=== PATIENT | female | born 1970 | race Caucasian/White ===

== ENCOUNTER 2020-03-10 14:52 | Outpatient (CLI) | payer MEDICARE, MEDICAID, SELFPAY ==
[2020-03-10 16:13] LABS: Basophils Percent Auto 0.7 % (0.2-1.2); Eosinophils Absolute Auto 0.1 K/mm3 (0-0.3); Eosinophils Percent Auto 1.1 % (0-4.4); Hematocrit 41.2 % (37.0-47.0); Hemoglobin 14.4 g/dL (12.0-15.0); Immature Granulocyte Absolute 0.02 K/mm3 (0.00-0.031); Immature Granulocyte Percent A 0.4 % (0-0.5); Lymphocytes Absolute Auto 1.59 K/mm3 (0.9-3.2); Lymphocytes Percent Auto 28.8 % (18.3-44.2); Mean Corpuscular Hemoglobin 31.9 pg (26-34); Mean Corpuscular Volume 91.4 fl (80-100); Mean Platelet Volume 10.3 fl (7.4-10.4); Monocytes Absolute Auto 0.4 K/mm3 (0.1-0.6); Monocytes Percent Auto 6.3 % (2.6-8.5); Neutrophils Absolute Auto 3.5 K/mm3 (1.3-6.7); Neutrophils Percent Auto 62.7 % (45.5-73.1); Platelet Count Result 260 k/mm3 (150-375); Red Blood Count 4.51 M/mm3 (4.2-5.4); Red Cell Distribution Width 13.5 % (11.5-14.5); White Blood Count 5.5 K/mm3 (4.5-10.0)
[2020-03-10 16:35] LABS: Alanine Aminotransferase 17 U/L (4-35); Albumin Level 4.4 g/dL (3.5-5.1); Alkaline Phosphatase 98 U/L (38-126); Aspartate Amino Transferase 28 U/L (14-36); Bilirubin,Total 0.7 mg/dL (0.2-1.3); Blood Urea Nitrogen 10 mg/dL (7-17); Calcium 9.3 mg/dL (8.4-10.2); Carbon Dioxide 31 mmol/L (22-30); Chloride 94 mmol/L (98-107); Cholesterol 157 mg/dL (0-200); Estimated Glomerular Filt Rate > 60; Glucose 85 mg/dL (65-105); HDL Direct 70 mg/dL; Sodium 134 mmol/L (137-145); Triglycerides 97 mg/dL (<150)
[2020-03-10 16:37] LABS: LDL Cholesterol Direct 68 mg/dL
[2020-03-10 17:19] LABS: Thyroid Stimulating Hormone Reflex 0.514 uIU/mL (0.465-4.68)
[2020-03-11 13:04] LABS: Potassium 2.8 mmol/L (3.4-5.0)
== END 2020-03-10 14:53 | disposition home or self-care (01) ==
DX: I10 Essential (primary) hypertension (principal); M19.90 Unspecified osteoarthritis, unspecified site
CPT/HCPCS: 36415; 80053; 80061; 84443; 85025

== ENCOUNTER 2020-03-11 15:20 | Outpatient (CLI) | payer MEDICARE, MEDICAID, SELFPAY ==
--- NOTE | ~2020-03-11 | XR_ITS ---
EXAMINATION: XR knee LT 3V DATE: 03/11/2020 16:04 INDICATION: Left knee osteoarthritis and pain. TECHNIQUE: Weight bearing anteroposterior, sunrise, and flexed lateral views of the left knee were ob tained COMPARISON: None. FINDINGS: Alignment is normal. No fracture. Joint spaces are normal. No joint effusion/layering lipohemarthros is. Soft tissues are unremarkable. IMPRESSION: 1. Normal left knee radiographs. Reviewed, dictated and finalized at location A.
--- NOTE | ~2020-03-11 | XR_ITS ---
EXAMINATION: XR lumbar spine 2-3V DATE: 03/11/2020 16:03 INDICATION: Right-sided back pain radiating into the legs TECHNIQUE: Anteroposterior and lateral views of the lumbar spine, and cone-down lateral view of the l umbosacral junction were obtained. COMPARISON: None. FINDINGS: Alignment is normal. Vertebral body and disc heights are normal. Likely mild lower lumbar facet osteo arthritis. No significant neural foraminal narrowing appreciated. Atherosclerotic calcification is al joan the abdominal aorta and iliac arteries. Anastomotic suture line in the right upper abdomen. Brigitte l bowel gas pattern. IMPRESSION: 1. Mild lower lumbar facet osteoarthritis. Reviewed, dictated and finalized at location A.
== END 2020-03-11 15:21 | disposition home or self-care (01) ==
LOC: ANHIMG 15:25
DX: M17.12 Unilateral primary osteoarthritis, left knee (principal); M47.816 Spondylosis without myelopathy or radiculopathy, lumbar region
CPT/HCPCS: 72100; 73562

== ENCOUNTER 2020-03-23 12:31 | Outpatient (CLI) | payer MEDICARE, MEDICAID, SELFPAY ==
[2020-03-23 13:47] LABS: Alanine Aminotransferase 18 U/L (4-35); Albumin Level 4.4 g/dL (3.5-5.1); Alkaline Phosphatase 93 U/L (38-126); Aspartate Amino Transferase 28 U/L (14-36); Bilirubin,Total 0.6 mg/dL (0.2-1.3); Blood Urea Nitrogen 9 mg/dL (7-17); Calcium 9.3 mg/dL (8.4-10.2); Carbon Dioxide 32 mmol/L (22-30); Chloride 96 mmol/L (98-107); Estimated Glomerular Filt Rate > 60; Glucose 77 mg/dL (65-105); Potassium 3.9 mmol/L (3.4-5.0); Sodium 136 mmol/L (137-145)
== END 2020-03-23 12:32 | disposition home or self-care (01) ==
PROVIDERS: PCP Family Medicine; Visit Provider Family Medicine
DX: I10 Essential (primary) hypertension (principal)
CPT/HCPCS: 36415; 80053

== ENCOUNTER 2020-04-04 15:39 | Outpatient (CLI) | payer MEDICARE, MEDICAID, SELFPAY ==
[2020-04-04 16:32] LABS: Alanine Aminotransferase 18 U/L (4-35); Albumin Level 4.6 g/dL (3.5-5.1); Alkaline Phosphatase 87 U/L (38-126); Aspartate Amino Transferase 28 U/L (14-36); Bilirubin,Total 0.7 mg/dL (0.2-1.3); Blood Urea Nitrogen 8 mg/dL (7-17); Calcium 9.5 mg/dL (8.4-10.2); Carbon Dioxide 27 mmol/L (22-30); Chloride 97 mmol/L (98-107); Estimated Glomerular Filt Rate 58; Glucose 100 mg/dL (65-105); Sodium 135 mmol/L (137-145)
== END 2020-04-04 15:40 | disposition home or self-care (01) ==
LOC: ANHLAB 15:43
PROVIDERS: PCP Family Medicine; Visit Provider Family Medicine
DX: E87.6 Hypokalemia (principal)
CPT/HCPCS: 36415; 80053

== ENCOUNTER 2020-08-30 14:33 | Outpatient (CLI) | payer MEDICARE, MEDICAID, SELFPAY ==
[2020-08-30 15:51] LABS: Alanine Aminotransferase 18 U/L (4-35); Albumin Level 4.2 g/dL (3.5-5.1); Alkaline Phosphatase 91 U/L (38-126); Anion Gap 9 mmol/L (8-16); Aspartate Amino Transferase 29 U/L (14-36); Bilirubin,Total 0.8 mg/dL (0.2-1.3); Blood Urea Nitrogen 11 mg/dL (7-17); CRP 0.5 mg/dL (<1.0); Calcium 9.3 mg/dL (8.4-10.2); Carbon Dioxide 28 mmol/L (22-30); Chloride 96 mmol/L (98-107); Estimated Glomerular Filt Rate > 60; Glucose 104 mg/dL (65-105); Potassium 2.9 mmol/L (3.4-5.0); Sodium 133 mmol/L (137-145)
[2020-08-30 16:27] LABS: Vitamin D 25 Hydroxy 28.4 ng/mL
== END 2020-08-30 14:34 | disposition home or self-care (01) ==
PROVIDERS: PCP Family Medicine
DX: Z51.81 Encounter for therapeutic drug level monitoring (principal); Z79.899 Other long term (current) drug therapy; K50.919 Crohn's disease, unspecified, with unspecified complications; K90.9 Intestinal malabsorption, unspecified; E53.8 Deficiency of other specified B group vitamins; I10 Essential (primary) hypertension
CPT/HCPCS: 36415; 80053; 80076; 82248; 82306; 82607; 85025; 85652; 86140

== ENCOUNTER 2020-12-14 12:20 | Outpatient (CLI) | payer MEDICARE, MEDICAID, SELFPAY ==
--- NOTE | ~2020-12-14 | XR_ITS ---
XR chest 2V 12/14/2020 12:44 Indication: Pleuritic chest pain Procedure: 2 view chest Comparison: 04/03/2018 Findings: Heart size normal. Chronic left basilar atelectasis/scarring. No focal air space disease, p ulmonary edema, pleural effusion or suspected pneumothorax. There are changes of anterior cervical fu huy lower cervical spine. Impression: 1: No acute cardiopulmonary disease. Reviewed, dictated and finalized at location A. Impression: 1: No acute cardiopulmonary disease.
== END 2020-12-14 12:21 | disposition home or self-care (01) ==
PROVIDERS: PCP Family Medicine; Visit Provider Family Medicine
DX: R07.81 Pleurodynia (principal)
CPT/HCPCS: 71046

== ENCOUNTER 2021-04-21 16:54 | Emergency (ER) | payer MEDICARE, MEDICAID, SELFPAY ==
[2021-04-21 17:10] VITALS: BP 116/78; PULSE 82; RESP 16; TEMP 36.9; O2SAT 99
--- NOTE | 2021-04-21 17:29 | ED.URI ---
HPI - URI/Sore Throat General Chief Complaint: Upper Respiratory Infection Stated Complaint: Loss of appetite and nausea Time Seen by Provider: 04/21/21 17:29 Source: patient and RN notes reviewed Mode of arrival: ambulatory Limitations: no limitations History of Present Illness HPI Narrative: 51-year-old female with history of Crohn's disease presents with concern for exposure to Covid, loss of appetite, nausea. Reports she was on vacation late last week and began having symptoms approximately 8 days ago. Reports several people in her household and who were on the trip with her tested positive for Covid. She was not vaccinated. She denies cough, shortness of breath, upper respiratory symptoms MD elicited complaint: other (Nausea) Related Data Home Medications Medication Instructions Recorded Confirmed azathioprine 04/21/21 budesonide PO 04/21/21 metoprolol succinate PO 04/21/21 montelukast mg 04/21/21 potassium chloride [Klor-Con M20] meq PO 04/21/21 Allergies Allergy/AdvReac Type Severity Reaction Status Date / Time sulfamethoxazole Allergy Severe THROAT Verified 04/21/21 17:42 SWELLING trimethoprim Allergy Severe THROAT Verified 04/21/21 17:42 SWELLING amoxicillin Allergy Intermediate SWELLING/RA Verified 04/21/21 17:42 SH cefadroxil Allergy Intermediate Rash Verified 04/21/21 17:42 latex Allergy Intermediate Other Verified 04/21/21 17:42 levofloxacin Allergy Intermediate FACIAL Verified 04/21/21 17:42 SWELLING lidocaine Allergy Intermediate THROAT Verified 04/21/21 17:42 SWELLING rifampin Allergy Intermediate Rash Verified 04/21/21 17:42 clarithromycin Allergy Mild SWELLING Verified 04/21/21 17:42 erythromycin base Allergy Mild SWELLING Verified 04/21/21 17:42 morphine Allergy Mild NAUSEA AND Verified 04/21/21 17:42 VOMITING ofloxacin Allergy Mild RASH Verified 04/21/21 17:42 Penicillins Allergy Mild SWELLING Verified 04/21/21 17:42 adhesive Allergy Unknown Unknown Verified 04/21/21 17:42 POTASSIUM CLAVULANATE Allergy Intermediate SWELLING/RA Uncoded 07/20/19 18:40 SH dermabond Allergy Mild Rash Uncoded 07/10/17 16:44 Review of Systems Review of Systems: CONSTITUTIONAL: Denies malaise, chills, sweats, or fever. EYES: Denies visual changes, redness, or discharge. ENT: Denies rhinorrhea, congestion, sinus pain, otalgia and sore throat. CARDIOVASCULAR: Denies chest pain, palpitations, or edema. RESPIRATORY: Denies cough or dyspnea. GASTROINTESTINAL: Denies abdominal pain, vomiting, diarrhea. Reports nausea and loss of appetite SKIN: Denies rash or itching. MUSCULOSKELETAL: Denies myalgia. NEUROLOGIC: Denies headache. All systems reviewed & are unremarkable except as noted in HPI and below PMFSH Comments At time of signature, agree with nursing past medical, surgical, social and family history. There is no relevant family history pertinent to the presenting complaint Exam Narrative: GENERAL: Well-appearing, well-nourished, and in no acute distress. HEAD: Normocephalic EYES: PERRLA, conjunctivae clear ENT: Mucous membranes moist. no trismus, uvula midline. NECK: Supple. No lymphadenopathy CHEST: Clear to auscultation, breath sounds equal. No wheezing, rhonchi, rales, or stridor. No respiratory distress, speaks in full sentences. HEART: Regular rate and rhythm. No murmur heard. SKIN: Warm, dry, no rash. NEURO: Alert and oriented x3. PSYCH: Normal mood and affect Course Course Emergency Course: Patient is aware of diagnosis, understands and agrees to treatment plan. Anticipatory guidance given. Patient agrees to follow-up as directed and is aware of reasons to seek care at the emergency department. Portions of this record may have been created with voice recognition software Vital Signs Vital signs: Vital Signs Temperature 98.4 F 04/21/21 17:10 Pulse Rate 82 04/21/21 17:10 Respiratory Rate 16 04/21/21 17:10 Blood Pressure 116/78 04/21/21 17:10 Pulse Oxim
[2021-04-22 18:27] LABS: SARS-CoV-2 RNA PCR Positive
== END 2021-04-21 17:49 | disposition home or self-care (01) ==
PROVIDERS: Emergency Provider Nurse Practitioner; PCP Family Medicine
DX: U07.1 COVID-19 (principal); K50.90 Crohn's disease, unspecified, without complications
CPT/HCPCS: 87426; 99213; C9803; G0463; U0003; U0005

== ENCOUNTER 2021-10-17 08:53 | Outpatient (CLI) | payer OTHER, SELFPAY ==
[2021-10-17 09:49] LABS: Basophils Absolute Auto 0.1 K/mm3 (0.0-0.1); Eosinophils Absolute Auto 0.1 K/mm3 (0-0.3); Eosinophils Percent Auto 1.2 % (0-4.4); Hematocrit 41.4 % (37.0-47.0); Hemoglobin 14.5 g/dL (12.0-15.0); Immature Granulocyte Absolute 0.02 K/mm3 (0.00-0.031); Immature Granulocyte Percent A 0.4 % (0-0.5); Lymphocytes Absolute Auto 1.49 K/mm3 (0.9-3.2); Lymphocytes Percent Auto 28.9 % (18.3-44.2); Mean Corpuscular Hemoglobin 32.3 pg (26-34); Mean Corpuscular Volume 92.2 fl (80-100); Mean Platelet Volume 9.8 fl (7.4-10.4); Monocytes Absolute Auto 0.3 K/mm3 (0.1-0.6); Monocytes Percent Auto 6.4 % (2.6-8.5); Neutrophils Absolute Auto 3.2 K/mm3 (1.3-6.7); Neutrophils Percent Auto 62.1 % (45.5-73.1); Platelet Count Result 265 k/mm3 (150-375); Red Blood Count 4.49 M/mm3 (4.2-5.4); Red Cell Distribution Width 13.3 % (11.5-14.5); White Blood Count 5.2 K/mm3 (4.5-10.0)
[2021-10-17 09:59] LABS: Alanine Aminotransferase 22 U/L (4-35); Albumin Level 4.5 g/dL (3.5-5.1); Alkaline Phosphatase 97 U/L (38-126); Anion Gap 12 mmol/L (8-16); Aspartate Amino Transferase 27 U/L (14-36); Bilirubin,Total 0.6 mg/dL (0.2-1.3); Blood Urea Nitrogen 12 mg/dL (7-17); Calcium 9.6 mg/dL (8.4-10.2); Carbon Dioxide 30 mmol/L (22-30); Chloride 95 mmol/L (98-107); Cholesterol 137 mg/dL (0-200); Estimated Glomerular Filt Rate 52; Glucose 92 mg/dL (65-110); HDL Direct 56 mg/dL; Sodium 137 mmol/L (137-145); Triglycerides 82 mg/dL (<150)
[2021-10-17 10:10] LABS: LDL Cholesterol Direct 50 mg/dL
[2021-10-17 11:55] LABS: Thyroid Stimulating Hormone Reflex 0.654 uIU/mL (0.465-4.68)
== END 2021-10-17 08:54 | disposition home or self-care (01) ==
PROVIDERS: PCP Family Medicine; Visit Provider Family Medicine
DX: I10 Essential (primary) hypertension (principal)
CPT/HCPCS: 36415; 80053; 80061; 84443; 85025

== ENCOUNTER 2021-12-04 09:40 | Outpatient (CLI) | payer OTHER, SELFPAY ==
[2021-12-04 10:11] LABS: Alanine Aminotransferase 25 U/L (4-35); Albumin Level 4.5 g/dL (3.5-5.1); Alkaline Phosphatase 94 U/L (38-126); Anion Gap 7 mmol/L (8-16); Aspartate Amino Transferase 32 U/L (14-36); Bilirubin,Total 0.6 mg/dL (0.2-1.3); Blood Urea Nitrogen 9 mg/dL (7-17); Calcium 9.3 mg/dL (8.4-10.2); Carbon Dioxide 31 mmol/L (22-30); Chloride 100 mmol/L (98-107); Estimated Glomerular Filt Rate 52; Glucose 79 mg/dL (65-110); Potassium 3.5 mmol/L (3.4-5.0); Sodium 138 mmol/L (137-145)
== END 2021-12-04 09:41 | disposition home or self-care (01) ==
LOC: ANHLAB 09:44
PROVIDERS: PCP Family Medicine; Visit Provider Family Medicine
DX: E87.6 Hypokalemia (principal)
CPT/HCPCS: 36415; 80053

== ENCOUNTER 2022-04-02 16:54 | Outpatient (CLI) | payer MEDICARE, MEDICAID, SELFPAY ==
--- NOTE | ~2022-04-02 | XR_ITS ---
XR lumbar spine 2-3V DATE: 04/02/2022 17:32 INDICATION: Fall 2 days ago. Low back pain radiating upward TECHNIQUE: AP, lateral, coned lateral lumbosacral views COMPARISON: 03/11/2020 lumbar spine FINDINGS: Normal alignment of the lumbar spine. No fracture or bone destruction. The included lower t horacic and lumbar pedicles are intact. Lumbar and lumbosacral interspaces are well preserved. Minima l degenerative spurring. Degenerative changes noted at the lower lumbar facet joints. The sacroiliac joints are intact. Abdominal aortic and common iliac arterial calcifications without evidence of aneurysm. IMPRESSION: Minimal degenerative change of the lumbar spine Reviewed, dictated and finalized at location A.
== END 2022-04-02 16:55 | disposition home or self-care (01) ==
LOC: ANHIMG 17:03
PROVIDERS: PCP Family Medicine; Visit Provider Family Medicine
DX: M54.50 Low back pain, unspecified (principal)
CPT/HCPCS: 72100

== ENCOUNTER 2022-04-26 14:00 | Outpatient (CLI) | payer MEDICARE, MEDICAID, SELFPAY ==
--- NOTE | ~2022-04-26 | XR_ITS ---
XR thoracic spine 3V DATE: 04/26/2022 14:21 INDICATION: Thoracic back pain following a fall TECHNIQUE: AP, lateral, swimmer views COMPARISON: None FINDINGS: Status post anterior cervical spine fusion at C5-6. There is degenerative disc disease at C 6-7. Normal alignment of the thoracic spine. The thoracic pedicles are intact. No thoracic spine fracture, dislocation or bone destruction or paraspinal soft tissue thickening is detected. IMPRESSION: Status post anterior cervical spine surgical fusion at C5-C6 Degenerative disc disease at C6-7 No fracture, dislocation or bone destruction of the thoracic spine is detected Reviewed, dictated and finalized at location B.
== END 2022-04-26 14:01 | disposition home or self-care (01) ==
PROVIDERS: PCP Family Medicine; Visit Provider Family Medicine
DX: Z98.1 Arthrodesis status (principal); M47.812 Spondylosis without myelopathy or radiculopathy, cervical region
CPT/HCPCS: 72072

== ENCOUNTER 2022-05-25 09:35 | Outpatient (CLI) | payer MEDICARE, MEDICAID, SELFPAY ==
[2022-05-25 11:58] LABS: Hepatitis C Virus Antibody Negative (Negative)
[2022-05-25 13:21] LABS: Alanine Aminotransferase 30 U/L (6-35); Albumin Level 4.4 g/dL (3.5-5.1); Alkaline Phosphatase 92 U/L (38-126); Aspartate Amino Transferase 44 U/L (14-36); Bilirubin,Total 0.6 mg/dL (0.2-1.3)
[2022-05-29 13:33] LABS: NIL 0.04 IU/mL; Quantiferon TB Plus, 1T NEGATIVE (NEGATIVE)
== END 2022-05-25 09:36 | disposition home or self-care (01) ==
LOC: ANHLAB 09:42
PROVIDERS: PCP Family Medicine
DX: K50.00 Crohn's disease of small intestine without complications (principal)
CPT/HCPCS: 36415; 80076; 82607; 86480; 86803

== ENCOUNTER 2022-06-12 13:10 | Emergency (ER) | payer MEDICARE, MEDICAID, SELFPAY ==
--- NOTE | ~2022-06-12 | XR_ITS ---
EXAMINATION: XR chest 2V Exam Date/Time: 06/12/2022 13:54 CDT HISTORY: COUGH X 1 DAY. POSTERIOR CHEST PAIN. Comparison: 12/14/2020. RESULT: Lines, tubes, and devices: Partially visualized cervical fusion hardware. Lungs and pleura: Clear. Linear superior left lower lobe and left basilar scarring, stable. Cardiomediastinal silhouette: Stable. Other: No acute osseous or upper abdominal finding. IMPRESSION: No acute cardiopulmonary process. Reviewed, dictated and finalized at location K.
[2022-06-12 13:16] VITALS: BP 145/82; PULSE 68; RESP 20; TEMP 36.9; O2SAT 100
--- NOTE | 2022-06-12 13:43 | ED.URI ---
HPI - URI/Sore Throat General Chief Complaint: Upper Respiratory Infection Stated Complaint: Congestion/Ear Pain/Sore Throat Time Seen by Provider: 06/12/22 13:43 Source: patient Mode of arrival: ambulatory Limitations: no limitations History of Present Illness HPI Narrative: 52 y/o female presented for c/o nasal congestion, bilateral ear pain for about one week and today she started coughing green sputum this morning. Endorses left side/back pain with deep breath and and pain under left arm when touched. Denies increased shortness of breath, wheezing, nausea, vomiting, diarrhea, fever or chills. Hx COPD using nebs and inhalers as directed Related Data Home Medications Medication Instructions Recorded Confirmed azathioprine 50 mg tablet 04/21/21 budesonide 3 mg PO 04/21/21 capsule,delayed,extended release metoprolol succinate 25 mg PO 04/21/21 tablet,extended release 24 hr montelukast 10 mg tablet mg 04/21/21 potassium chloride 20 mEq meq PO 04/21/21 tablet,extended release(part/cryst) (Klor-Con M) Allergies Allergy/AdvReac Type Severity Reaction Status Date / Time sulfamethoxazole Allergy Severe THROAT Verified 06/12/22 13:33 SWELLING trimethoprim Allergy Severe THROAT Verified 06/12/22 13:33 SWELLING amoxicillin Allergy Intermediate SWELLING/RA Verified 06/12/22 13:33 SH cefadroxil Allergy Intermediate Rash Verified 06/12/22 13:33 latex Allergy Intermediate Other Verified 06/12/22 13:33 levofloxacin Allergy Intermediate FACIAL Verified 06/12/22 13:33 SWELLING lidocaine Allergy Intermediate THROAT Verified 06/12/22 13:33 SWELLING rifampin Allergy Intermediate Rash Verified 06/12/22 13:33 clarithromycin Allergy Mild SWELLING Verified 06/12/22 13:33 erythromycin base Allergy Mild SWELLING Verified 06/12/22 13:33 morphine Allergy Mild NAUSEA AND Verified 06/12/22 13:33 VOMITING ofloxacin Allergy Mild RASH Verified 06/12/22 13:33 Penicillins Allergy Mild SWELLING Verified 06/12/22 13:33 adhesive Allergy Unknown Unknown Verified 06/12/22 13:33 POTASSIUM CLAVULANATE Allergy Intermediate SWELLING/RA Uncoded 07/20/19 18:40 SH dermabond Allergy Mild Rash Uncoded 07/10/17 16:44 Review of Systems Review of Systems: CONSTITUTIONAL: Denies body aches, fever, chills, or sweats. EYES: Denies visual changes, redness, or discharge. ENT: reports rhinorrhea, congestion, otalgia. CARDIOVASCULAR: Denies chest pain, palpitations, or edema. RESPIRATORY: denies sob, wheezing. GASTROINTESTINAL: Denies abdominal pain, nausea, vomiting, or diarrhea. SKIN: Denies rash, itching, or wounds. MUSCULOSKELETAL: reports left rib pain. NEUROLOGIC: Denies headache, numbness, tingling, or weakness. All systems reviewed & are unremarkable except as noted in HPI and below PMFSH Comments At time of signature, I have reviewed and agree with nursing past medical, surgical, social and family history unless otherwise noted. Please see nursing chart for further information. There is no relevant family history pertinent to the presenting complaint Exam Narrative: GENERAL: ill-appearing, nontoxic EYES: EOMI. No redness or drainage. Conjunctivae normal. ENT: Mucous membranes pink and moist. No rhinorrhea. TMs normal bilaterally. Throat normal. Uvula midline. CHEST: No respiratory distress. Lungs clear throughout HEART: Regular rate and rhythm. ABDOMEN: Soft, nontender, nondistended, normal active bowel sounds. EXTREMITIES: Normal range of motion. No edema. SKIN: Warm, dry, no rash. Capillary refill normal. Normal skin turgor. Course Course Emergency Course: Patient is aware of diagnosis, understands and agrees to treatment plan. Anticipatory guidance given. Patient agrees to follow-up as directed and is aware of reasons to seek care at the emergency department. Portions of this record may have been created with voice recognition software Level of Care: [facility] Care Visit Vital Si
== END 2022-06-12 14:38 | disposition home or self-care (01) ==
PROVIDERS: Emergency Provider Nurse Practitioner Family; PCP Family Medicine
DX: J06.9 Acute upper respiratory infection, unspecified (principal); J44.9 Chronic obstructive pulmonary disease, unspecified
CPT/HCPCS: 71046; 99213; G0463

== ENCOUNTER 2022-07-23 09:06 | Outpatient (CLI) | payer MEDICARE, MEDICAID, SELFPAY ==
[2022-07-23 12:58] LABS: Amphetamine Screen Urine Negative (Negative); Barbiturate Screen Urine Negative (Negative); Benzodiazepines Screen Urine Negative (Negative); Cannabinoid Screen Urine Negative (Negative); Cocaine Screen Urine Negative (Negative); Methadone Screen Urine Negative (Negative); Opiate Screen Urine Positive (Negative); Phencyclidine Screen Urine Negative (Negative)
== END 2022-07-23 09:07 | disposition home or self-care (01) ==
PROVIDERS: PCP Family Medicine; Visit Provider Family Medicine
DX: Z79.899 Other long term (current) drug therapy (principal)
CPT/HCPCS: 80307

== ENCOUNTER 2023-02-27 10:21 | Outpatient (CLI) | payer MEDICARE, MEDICAID, SELFPAY ==
[2023-02-27 11:14] LABS: Basophils Percent Auto 0.8 % (0.2-1.2); Eosinophils Absolute Auto 0.1 K/mm3 (0-0.3); Eosinophils Percent Auto 0.9 % (0-4.4); Hematocrit 40.4 % (37.0-47.0); Hemoglobin 13.9 g/dL (12.0-15.0); Immature Granulocyte Absolute 0.01 K/mm3 (0.00-0.031); Immature Granulocyte Percent A 0.2 % (0-0.5); Lymphocytes Absolute Auto 1.52 K/mm3 (0.9-3.2); Lymphocytes Percent Auto 28.8 % (18.3-44.2); Mean Corpuscular HGB Conc 34.4 g/dl (32-36); Mean Corpuscular Hemoglobin 31.9 pg (26-34); Mean Corpuscular Volume 92.7 fl (80-100); Mean Platelet Volume 9.6 fl (7.4-10.4); Monocytes Absolute Auto 0.2 K/mm3 (0.1-0.6); Monocytes Percent Auto 4.4 % (2.6-8.5); Neutrophils Absolute Auto 3.4 K/mm3 (1.3-6.7); Neutrophils Percent Auto 64.9 % (45.5-73.1); Platelet Count Result 238 k/mm3 (150-375); Red Blood Count 4.36 M/mm3 (4.2-5.4); Red Cell Distribution Width 13.8 % (11.5-14.5); White Blood Count 5.3 K/mm3 (4.5-10.0)
[2023-02-27 13:43] LABS: Alanine Aminotransferase 25 U/L (6-35); Albumin Level 4.3 g/dL (3.5-5.1); Alkaline Phosphatase 87 U/L (38-126); Anion Gap 7 mmol/L (8-16); Aspartate Amino Transferase 36 U/L (14-36); Bilirubin,Total 0.8 mg/dL (0.2-1.3); Blood Urea Nitrogen 10 mg/dL (7-17); Carbon Dioxide 30 mmol/L (22-30); Chloride 96 mmol/L (98-107); Estimated Glomerular Filt Rate > 60; Glucose 92 mg/dL (65-110); Sodium 133 mmol/L (137-145)
== END 2023-02-27 10:22 | disposition home or self-care (01) ==
PROVIDERS: PCP Family Medicine
DX: E87.6 Hypokalemia (principal); K50.919 Crohn's disease, unspecified, with unspecified complications
CPT/HCPCS: 36415; 80053; 82607; 85025

== ENCOUNTER 2023-04-17 11:38 | Outpatient (CLI) | payer MEDICARE, MEDICAID, SELFPAY ==
[2023-04-17 13:17] LABS: Alanine Aminotransferase 26 U/L (6-35); Albumin Level 4.6 g/dL (3.5-5.1); Alkaline Phosphatase 84 U/L (38-126); Anion Gap 8 mmol/L (8-16); Aspartate Amino Transferase 35 U/L (14-36); Bilirubin,Total 0.8 mg/dL (0.2-1.3); Blood Urea Nitrogen 11 mg/dL (7-17); Calcium 9.4 mg/dL (8.4-10.2); Carbon Dioxide 34 mmol/L (22-30); Chloride 95 mmol/L (98-107); Estimated Glomerular Filt Rate > 60; Glucose 90 mg/dL (65-110); Potassium 2.9 mmol/L (3.4-5.0); Sodium 137 mmol/L (137-145)
== END 2023-04-17 11:39 | disposition home or self-care (01) ==
LOC: ANHLAB 11:41
PROVIDERS: PCP Family Medicine; Visit Provider Family Medicine
DX: E87.6 Hypokalemia (principal)
CPT/HCPCS: 36415; 80053

== ENCOUNTER 2023-04-24 10:21 | Outpatient (CLI) | payer MEDICARE, MEDICAID, SELFPAY ==
[2023-04-24 11:04] LABS: Alanine Aminotransferase 32 U/L (6-35); Albumin Level 4.5 g/dL (3.5-5.1); Alkaline Phosphatase 82 U/L (38-126); Anion Gap 11 mmol/L (8-16); Aspartate Amino Transferase 43 U/L (14-36); Bilirubin,Total 0.8 mg/dL (0.2-1.3); Blood Urea Nitrogen 10 mg/dL (7-17); Calcium 9.4 mg/dL (8.4-10.2); Carbon Dioxide 27 mmol/L (22-30); Chloride 99 mmol/L (98-107); Estimated Glomerular Filt Rate 58; Glucose 93 mg/dL (65-110); Sodium 137 mmol/L (137-145)
== END 2023-04-24 10:22 | disposition home or self-care (01) ==
PROVIDERS: PCP Family Medicine; Visit Provider Family Medicine
DX: E87.6 Hypokalemia (principal)
CPT/HCPCS: 36415; 80053

== ENCOUNTER 2023-06-07 08:29 | Outpatient (CLI) | payer MEDICARE, MEDICAID, SELFPAY ==
[2023-06-07 09:52] LABS: Basophils Absolute Auto 0.1 K/mm3 (0.0-0.1); Basophils Percent Auto 0.8 % (0.2-1.2); Eosinophils Percent Auto 0.3 % (0-4.4); Hematocrit 40.1 % (37.0-47.0); Hemoglobin 14.2 g/dL (12.0-15.0); Immature Granulocyte Absolute 0.05 K/mm3 (0.00-0.031); Immature Granulocyte Percent A 0.7 % (0-0.5); Lymphocytes Absolute Auto 1.57 K/mm3 (0.9-3.2); Lymphocytes Percent Auto 21.8 % (18.3-44.2); Mean Corpuscular HGB Conc 35.4 g/dl (32-36); Mean Corpuscular Hemoglobin 32.3 pg (26-34); Mean Corpuscular Volume 91.3 fl (80-100); Mean Platelet Volume 9.7 fl (7.4-10.4); Monocytes Absolute Auto 0.3 K/mm3 (0.1-0.6); Monocytes Percent Auto 4.3 % (2.6-8.5); Neutrophils Absolute Auto 5.2 K/mm3 (1.3-6.7); Neutrophils Percent Auto 72.1 % (45.5-73.1); Platelet Count Result 264 k/mm3 (150-375); Red Blood Count 4.39 M/mm3 (4.2-5.4); Red Cell Distribution Width 13.3 % (11.5-14.5); White Blood Count 7.2 K/mm3 (4.5-10.0)
[2023-06-07 10:33] LABS: Alanine Aminotransferase 25 U/L (6-35); Albumin Level 4.3 g/dL (3.5-5.1); Alkaline Phosphatase 76 U/L (38-126); Anion Gap 4 mmol/L (8-16); Aspartate Amino Transferase 26 U/L (14-36); Bilirubin,Total 0.7 mg/dL (0.2-1.3); Blood Urea Nitrogen 13 mg/dL (7-17); CRP < 0.5 mg/dL (<1.0); Calcium 9.2 mg/dL (8.4-10.2); Carbon Dioxide 35 mmol/L (22-30); Chloride 96 mmol/L (98-107); Estimated Glomerular Filt Rate 58; Glucose 91 mg/dL (65-110); Potassium 2.7 mmol/L (3.4-5.0); Sodium 135 mmol/L (137-145)
[2023-06-07 10:57] LABS: Vitamin D 25 Hydroxy 22.8 ng/mL
== END 2023-06-07 08:30 | disposition home or self-care (01) ==
PROVIDERS: PCP Family Medicine
DX: K50.00 Crohn's disease of small intestine without complications (principal); E53.8 Deficiency of other specified B group vitamins; E87.6 Hypokalemia
CPT/HCPCS: 36415; 80053; 82306; 82607; 85025; 86140

== ENCOUNTER 2023-06-10 09:31 | Outpatient (CLI) | payer MEDICARE, MEDICAID, SELFPAY ==
[2023-06-10 10:08] LABS: Alanine Aminotransferase 23 U/L (6-35); Alkaline Phosphatase 78 U/L (38-126); Anion Gap 7 mmol/L (8-16); Aspartate Amino Transferase 23 U/L (14-36); Bilirubin,Total 0.6 mg/dL (0.2-1.3); Blood Urea Nitrogen 11 mg/dL (7-17); Calcium 9.1 mg/dL (8.4-10.2); Carbon Dioxide 31 mmol/L (22-30); Chloride 99 mmol/L (98-107); Estimated Glomerular Filt Rate 58; Glucose 80 mg/dL (65-110); Potassium 3.7 mmol/L (3.4-5.0); Sodium 137 mmol/L (137-145)
== END 2023-06-10 09:32 | disposition home or self-care (01) ==
PROVIDERS: PCP Family Medicine; Visit Provider Family Medicine
DX: E87.6 Hypokalemia (principal)
CPT/HCPCS: 36415; 80053

== ENCOUNTER 2023-08-20 19:47 | Emergency (ER) | payer MEDICARE, MEDICAID, SELFPAY ==
--- NOTE | ~2023-08-20 | XR_ITS ---
EXAM: XR forearm RT 2V DATE: 08/20/2023 20:15 HISTORY: pain . COMPARISON: None available. FINDINGS: Normal mineralization. No fracture or dislocation. No lytic or blastic lesion. Joint space s are maintained. No erosion or periosteal change. Soft tissues within normal limits. IMPRESSION: No acute osseous finding in the right forearm. Reviewed, dictated and finalized at location K. BUTCHER
--- NOTE | ~2023-08-20 | XR_ITS ---
EXAM: XR humerus RT DATE: 08/20/2023 20:15 HISTORY: pain . COMPARISON: None available. FINDINGS: Normal mineralization. No fracture or dislocation. No lytic or blastic lesion. Joint space s are maintained. No erosion or periosteal change. Soft tissues within normal limits. IMPRESSION: No acute osseous finding in the right humerus. Reviewed, dictated and finalized at location K. TAX AUDITOR
[2023-08-20 19:57] VITALS: BP 153/99; PULSE 80; RESP 18; TEMP 36.2; O2SAT 100
--- NOTE | 2023-08-20 22:02 | ED.UPPEXIN ---
HPI - Extremity Injury (Upper) General Chief Complaint: Extremity Injury, Upper Stated Complaint: head injury, arm pain Time Seen by Provider: 08/20/23 20:41 History of Present Illness HPI narrative: 53-year-old female reports for evaluation for right elbow pain for the past 16 days. 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 States when she had her head and knocked to the ground she landed on her right elbow. She denies losing consciousness. She states 2 days later, she was loading the back of her car when she hit her head again on the trunk. Again she fell to the ground landing on her right elbow. States since then she has had pain that is worse with movement and palpation of her right elbow. States the pain extends from her distal humerus down to her mid forearm. She is not anticoagulated and denies vision changes, focal numbness or weakness from her injuries. Related Data Home Medications Medication Instructions Recorded Confirmed azathioprine 50 mg tablet 04/21/21 budesonide 3 mg PO 04/21/21 capsule,delayed,extended release metoprolol succinate 25 mg PO 04/21/21 tablet,extended release 24 hr montelukast 10 mg tablet mg 04/21/21 potassium chloride 20 mEq meq PO 04/21/21 tablet,extended release(part/cryst) (Klor-Con M) Allergies Allergy/AdvReac Type Severity Reaction Status Date / Time sulfamethoxazole Allergy Severe THROAT Verified 08/20/23 20:37 SWELLING trimethoprim Allergy Severe THROAT Verified 08/20/23 20:37 SWELLING amoxicillin Allergy Intermediate SWELLING/RA Verified 08/20/23 20:37 SH cefadroxil Allergy Intermediate Rash Verified 08/20/23 20:37 latex Allergy Intermediate Other Verified 08/20/23 20:37 levofloxacin Allergy Intermediate FACIAL Verified 08/20/23 20:37 SWELLING lidocaine Allergy Intermediate THROAT Verified 08/20/23 20:37 SWELLING rifampin Allergy Intermediate Rash Verified 08/20/23 20:37 clarithromycin Allergy Mild SWELLING Verified 08/20/23 20:37 erythromycin base Allergy Mild SWELLING Verified 08/20/23 20:37 morphine Allergy Mild NAUSEA AND Verified 08/20/23 20:37 VOMITING ofloxacin Allergy Mild RASH Verified 08/20/23 20:37 Penicillins Allergy Mild SWELLING Verified 11/28/23 20:37 adhesive Allergy Unknown Unknown Verified 08/20/23 20:37 POTASSIUM CLAVULANATE Allergy Intermediate SWELLING/RA Uncoded 08/20/23 20:37 SH dermabond Allergy Mild Rash Uncoded 08/20/23 20:37 Review of Systems Review of Systems: CONSTITUTIONAL: Denies fever, chills, or sweats. EYES: Denies visual changes, redness, or discharge. ENT: Denies rhinorrhea, congestion, sore throat, or otalgia. CARDIOVASCULAR: Denies chest pain, palpitations, or edema. RESPIRATORY: Denies cough or dyspnea. GASTROINTESTINAL: Denies abdominal pain, nausea, vomiting, or diarrhea. GENITOURINARY: Denies dysuria or hematuria. SKIN: Denies rash or itching. MUSCULOSKELETAL: See HPI NEUROLOGIC: Denies headache, numbness, or weakness. PSYCHIATRIC: Denies anxiety or depression. Exam Narrative: GENERAL: Well-appearing, well-nourished, and in no acute distress. HEAD: Normocephalic, atraumatic. EYES: PERRLA and EOMI. ENT: Nares clear, no rhinorrhea or epistaxis. Mucous membranes moist. NECK: Supple. CHEST: Clear to auscultation. No respiratory distress. HEART: Regular rate and rhythm. No murmur heard. Normal peripheral pulses. ABDOMEN: Soft, nontender, nondistended, normal active bowel sounds. EXTREMITIES: RUE: tenderness to the medial and lateral epicondyle extending into the proximal radius and ulna. Full flexion extension supination and pronation of the elbow. Patient able to give a thumbs-up, pose finger and thumb, extend all fingers and make a fist. Cap refill less than 2 throughout. Radial pulse 2 +. Pain worse with all movements of elbow. No tenderness remainder of upper extremity. No war
[2023-08-20 22:31] VITALS: BP 133/82; PULSE 88; RESP 15; O2SAT 100
== END 2023-08-20 22:46 | disposition home or self-care (01) ==
PROVIDERS: Emergency Provider Physician Assistant; PCP Family Medicine
DX: S53.401A Unspecified sprain of right elbow, initial encounter (principal); W19.XXXA Unspecified fall, initial encounter
CPT/HCPCS: 36415; 73060; 73090; 80053; 96372; 99284; A4565; J1100

== ENCOUNTER 2023-08-23 08:39 | Emergency (ER) | payer MEDICARE, MEDICAID, SELFPAY ==
--- NOTE | 2023-08-23 08:42 | ED.URI ---
HPI - URI/Sore Throat General Chief Complaint: Upper Respiratory Infection Stated Complaint: Congestion/Sore Throat/Cough Time Seen by Provider: 08/23/23 08:41 Source: patient Mode of arrival: ambulatory Limitations: no limitations History of Present Illness HPI Narrative: Angélica is a 53-year-old female patient presenting to the clinic today with complaints cough, congestion, and sore throat x1 week. She reports she started that without allergy symptoms with some nasal congestion and is gradually got worse. Is reporting some [place] green nasal drainage that she is coughing up. Denies any fever or chills. Does have some mild sinus pressure. Reports that her grandson was positive for strep. MD elicited complaint: cough, sore throat and nasal congestion Related Data Home Medications Medication Instructions Recorded Confirmed azathioprine 50 mg tablet 50 mg PO DAILY 04/21/21 08/23/23 budesonide 3 mg PO 04/21/21 capsule,delayed,extended release metoprolol succinate 25 mg 25 mg PO DAILY 04/21/21 08/23/23 tablet,extended release 24 hr montelukast 10 mg tablet mg 04/21/21 potassium chloride 20 mEq meq PO 04/21/21 tablet,extended release(part/cryst) (Klor-Con M) hydrocodone 7.5 mg-acetaminophen tablet 08/23/23 325 mg tablet Allergies Allergy/AdvReac Type Severity Reaction Status Date / Time sulfamethoxazole Allergy Severe THROAT Verified 08/20/23 20:37 SWELLING trimethoprim Allergy Severe THROAT Verified 08/20/23 20:37 SWELLING amoxicillin Allergy Intermediate SWELLING/RA Verified 08/20/23 20:37 SH cefadroxil Allergy Intermediate Rash Verified 08/20/23 20:37 latex Allergy Intermediate Other Verified 08/20/23 20:37 levofloxacin Allergy Intermediate FACIAL Verified 08/20/23 20:37 SWELLING lidocaine Allergy Intermediate THROAT Verified 08/20/23 20:37 SWELLING rifampin Allergy Intermediate Rash Verified 08/20/23 20:37 clarithromycin Allergy Mild SWELLING Verified 08/20/23 20:37 erythromycin base Allergy Mild SWELLING Verified 08/20/23 20:37 morphine Allergy Mild NAUSEA AND Verified 08/20/23 20:37 VOMITING ofloxacin Allergy Mild RASH Verified 08/20/23 20:37 Penicillins Allergy Mild SWELLING Verified 08/20/23 20:37 adhesive Allergy Unknown Unknown Verified 08/20/23 20:37 POTASSIUM CLAVULANATE Allergy Intermediate SWELLING/RA Uncoded 08/20/23 20:37 SH dermabond Allergy Mild Rash Uncoded 08/20/23 20:37 Review of Systems Review of Systems: Pertinent positives per HPI. Patient denies any fever, chills, rash, headache, visual changes, dizziness, shortness of breath, chest pain, palpitations, nausea, vomiting, diarrhea, constipation, abdominal pain, or any urinary issues. PMFSH Comments At the time of my signature, I reviewed and agree with the nursing past medical, surgical, social, and family history. There is no relevant family history pertinent to the patient complaint. Exam Narrative: General: Well-developed, well nourished, in no apparent distress Head: Normocephalic, atraumatic Eyes: Pupils equally round and reactive to light bilaterally, EOM intact, sclera and conjunctive clear, no discharge, lids normal Ears: TMs intact and clear, ear canals clear, no drainage, grossly hearing normal. Nose: Nares patent, clear nasal discharge, no inflammation, mild maxillary sinus tenderness. Mouth: Oral pharynx mildly red without lesions or masses, good dentition, MMM. Postnasal drip, tonsils surgically absent Neck: Supple, trachea midline, no enlargement of anterior or posterior cervical nodes, no thyroid masses or goiter palpable. Cardio: Regular rate and rhythm, s1 and s2 normal, no murmur appreciated. Resp: Clear to auscultation bilaterally, no rhonchi, rales, wheezing or rubs Course Course Emergency Course: Portions of this record may have been created with voice recognition software. Level of Care: Express Care Visit Vital Signs Vital signs: Vital signs revi
[2023-08-23 08:46] VITALS: BP 127/79; PULSE 78; RESP 18; TEMP 36.5; O2SAT 97
== END 2023-08-23 09:34 | disposition home or self-care (01) ==
PROVIDERS: Emergency Provider Nurse Practitioner Family; PCP Family Medicine
DX: J06.9 Acute upper respiratory infection, unspecified (principal); J02.9 Acute pharyngitis, unspecified
CPT/HCPCS: 87081; 87880; 99213; G0463

== ENCOUNTER 2023-09-03 09:27 | Outpatient (RCR) | payer MEDICARE, MEDICAID, SELFPAY ==
[2023-06-25 09:45] LABS: Alanine Aminotransferase 21 U/L (6-35); Albumin Level 4.2 g/dL (3.5-5.1); Alkaline Phosphatase 79 U/L (38-126); Anion Gap 3 mmol/L (8-16); Aspartate Amino Transferase 32 U/L (14-36); Bilirubin,Total 0.8 mg/dL (0.2-1.3); Blood Urea Nitrogen 9 mg/dL (7-17); Calcium 9.1 mg/dL (8.4-10.2); Carbon Dioxide 36 mmol/L (22-30); Chloride 97 mmol/L (98-107); Estimated Glomerular Filt Rate 58; Glucose 102 mg/dL (65-110); Potassium 2.8 mmol/L (3.4-5.0); Sodium 136 mmol/L (137-145)
[2023-07-02 09:15] LABS: Alanine Aminotransferase 24 U/L (6-35); Albumin Level 4.7 g/dL (3.5-5.1); Alkaline Phosphatase 75 U/L (38-126); Anion Gap 7 mmol/L (8-16); Aspartate Amino Transferase 34 U/L (14-36); Bilirubin,Total 0.9 mg/dL (0.2-1.3); Blood Urea Nitrogen 8 mg/dL (7-17); Calcium 9.5 mg/dL (8.4-10.2); Carbon Dioxide 30 mmol/L (22-30); Chloride 98 mmol/L (98-107); Estimated Glomerular Filt Rate 58; Glucose 79 mg/dL (65-110); Potassium 3.1 mmol/L (3.4-5.0); Sodium 135 mmol/L (137-145)
[2023-07-09 10:07] LABS: Alanine Aminotransferase 19 U/L (6-35); Albumin Level 4.3 g/dL (3.5-5.1); Alkaline Phosphatase 78 U/L (38-126); Anion Gap 3 mmol/L (8-16); Aspartate Amino Transferase 27 U/L (14-36); Bilirubin,Total 0.7 mg/dL (0.2-1.3); Blood Urea Nitrogen 11 mg/dL (7-17); Carbon Dioxide 34 mmol/L (22-30); Chloride 97 mmol/L (98-107); Estimated Glomerular Filt Rate 58; Glucose 109 mg/dL (65-110); Potassium 3.4 mmol/L (3.4-5.0); Sodium 134 mmol/L (137-145)
[2023-07-16 09:52] LABS: Alanine Aminotransferase 21 U/L (6-35); Albumin Level 4.2 g/dL (3.5-5.1); Alkaline Phosphatase 79 U/L (38-126); Anion Gap 7 mmol/L (8-16); Aspartate Amino Transferase 33 U/L (14-36); Bilirubin,Total 0.8 mg/dL (0.2-1.3); Blood Urea Nitrogen 10 mg/dL (7-17); Calcium 9.1 mg/dL (8.4-10.2); Carbon Dioxide 30 mmol/L (22-30); Chloride 97 mmol/L (98-107); Estimated Glomerular Filt Rate 58; Glucose 106 mg/dL (65-110); Potassium 3.4 mmol/L (3.4-5.0); Sodium 134 mmol/L (137-145)
[2023-07-23 10:32] LABS: Alanine Aminotransferase 22 U/L (6-35); Albumin Level 4.4 g/dL (3.5-5.1); Alkaline Phosphatase 79 U/L (38-126); Anion Gap 5 mmol/L (8-16); Aspartate Amino Transferase 31 U/L (14-36); Bilirubin,Total 0.9 mg/dL (0.2-1.3); Blood Urea Nitrogen 10 mg/dL (7-17); Calcium 9.4 mg/dL (8.4-10.2); Carbon Dioxide 33 mmol/L (22-30); Chloride 96 mmol/L (98-107); Estimated Glomerular Filt Rate 58; Glucose 121 mg/dL (65-110); Potassium 3.3 mmol/L (3.4-5.0); Sodium 134 mmol/L (137-145)
[2023-07-30 11:31] LABS: Alanine Aminotransferase 24 U/L (6-35); Albumin Level 4.5 g/dL (3.5-5.1); Alkaline Phosphatase 71 U/L (38-126); Anion Gap 5 mmol/L (8-16); Aspartate Amino Transferase 34 U/L (14-36); Bilirubin,Total 0.9 mg/dL (0.2-1.3); Blood Urea Nitrogen 10 mg/dL (7-17); Calcium 9.5 mg/dL (8.4-10.2); Carbon Dioxide 30 mmol/L (22-30); Chloride 97 mmol/L (98-107); Estimated Glomerular Filt Rate > 60; Glucose 112 mg/dL (65-110); Potassium 3.4 mmol/L (3.4-5.0); Sodium 132 mmol/L (137-145)
[2023-08-13 09:40] LABS: Alanine Aminotransferase 29 U/L (6-35); Albumin Level 4.1 g/dL (3.5-5.1); Alkaline Phosphatase 73 U/L (38-126); Anion Gap 8 mmol/L (8-16); Aspartate Amino Transferase 35 U/L (14-36); Bilirubin,Total 0.8 mg/dL (0.2-1.3); Blood Urea Nitrogen 13 mg/dL (7-17); Calcium 9.1 mg/dL (8.4-10.2); Carbon Dioxide 33 mmol/L (22-30); Chloride 93 mmol/L (98-107); Estimated Glomerular Filt Rate > 60; Glucose 101 mg/dL (65-110); Potassium 2.6 mmol/L (3.4-5.0); Sodium 134 mmol/L (137-145)
[2023-08-20 10:02] LABS: Alanine Aminotransferase 28 U/L (6-35); Albumin Level 4.7 g/dL (3.5-5.1); Alkaline Phosphatase 92 U/L (38-126); Anion Gap 9 mmol/L (8-16); Aspartate Amino Transferase 33 U/L (14-36); Blood Urea Nitrogen 7 mg/dL (7-17); Calcium 9.6 mg/dL (8.4-10.2); Carbon Dioxide 32 mmol/L (22-30); Chloride 93 mmol/L (98-107); Estimated Glomerular Filt Rate 58; Glucose 103 mg/dL (65-110); Potassium 3.1 mmol/L (3.4-5.0); Sodium 134 mmol/L (137-145)
[2023-09-03 10:23] LABS: Alanine Aminotransferase 24 U/L (6-35); Albumin Level 3.9 g/dL (3.5-5.1); Alkaline Phosphatase 90 U/L (38-126); Anion Gap 6 mmol/L (8-16); Aspartate Amino Transferase 23 U/L (14-36); Bilirubin,Total 0.8 mg/dL (0.2-1.3); Blood Urea Nitrogen 12 mg/dL (7-17); Calcium 9.2 mg/dL (8.4-10.2); Carbon Dioxide 31 mmol/L (22-30); Chloride 96 mmol/L (98-107); Estimated Glomerular Filt Rate > 60; Glucose 131 mg/dL (65-110); Potassium 3.3 mmol/L (3.4-5.0); Sodium 133 mmol/L (137-145)
== END 2023-09-23 23:59 | disposition home or self-care (01) ==
LOC: ANHLAB 09:27
PROVIDERS: PCP Family Medicine; Visit Provider Family Medicine
DX: E87.6 Hypokalemia (principal)
CPT/HCPCS: 36415; 80053

== ENCOUNTER 2023-11-04 14:52 | Outpatient (CLI) | payer MEDICARE, MEDICAID, SELFPAY ==
--- NOTE | ~2023-11-04 | XR_ITS ---
EXAMINATION: XR foot LT 2V DATE: 11/04/2023 15:21 INDICATION: Swelling at the first metatarsophalangeal joint. TECHNIQUE: Dorsoplantar and lateral views of the left foot were obtained. COMPARISON: None. FINDINGS: Alignment is normal. No fracture. Mild osteoarthritis at the calcaneocuboid, the first metatarsophala ngeal and a few tarsal metatarsal and interphalangeal joints. Small Achilles calcaneal spur. Soft tis sues are unremarkable. IMPRESSION: 1. Scattered mild osteoarthritis in the left foot. No acute osseous abnormality. Reviewed, dictated and finalized at location A. WAY SIGNAL TECHNICIAN IMPRESSION: 1. Scattered mild osteoarthritis in the left foot. No acute osseous abnormality .
== END 2023-11-04 14:53 | disposition home or self-care (01) ==
LOC: ANHIMG 14:56
PROVIDERS: PCP Family Medicine; Visit Provider Family Medicine
DX: M19.072 Primary osteoarthritis, left ankle and foot (principal); M25.475 Effusion, left foot
CPT/HCPCS: 73620

== ENCOUNTER 2023-12-03 08:14 | Outpatient (RCR) | payer MEDICARE, MEDICAID, SELFPAY ==
[2023-09-24 11:11] LABS: Alanine Aminotransferase 22 U/L (6-35); Albumin Level 4.1 g/dL (3.5-5.1); Alkaline Phosphatase 83 U/L (38-126); Anion Gap 9 mmol/L (8-16); Aspartate Amino Transferase 31 U/L (14-36); Blood Urea Nitrogen 10 mg/dL (7-17); Carbon Dioxide 32 mmol/L (22-30); Chloride 93 mmol/L (98-107); Estimated Glomerular Filt Rate > 60; Glucose 99 mg/dL (65-110); Potassium 2.7 mmol/L (3.4-5.0); Sodium 134 mmol/L (137-145)
[2023-09-27 09:01] LABS: Alanine Aminotransferase 19 U/L (6-35); Albumin Level 3.8 g/dL (3.5-5.1); Alkaline Phosphatase 70 U/L (38-126); Anion Gap 7 mmol/L (8-16); Aspartate Amino Transferase 31 U/L (14-36); Bilirubin,Total 0.8 mg/dL (0.2-1.3); Blood Urea Nitrogen 11 mg/dL (7-17); Calcium 8.8 mg/dL (8.4-10.2); Carbon Dioxide 31 mmol/L (22-30); Chloride 99 mmol/L (98-107); Estimated Glomerular Filt Rate > 60; Glucose 93 mg/dL (65-110); Potassium 3.5 mmol/L (3.4-5.0); Sodium 137 mmol/L (137-145)
[2023-10-01 08:43] LABS: Alanine Aminotransferase 20 U/L (6-35); Alkaline Phosphatase 74 U/L (38-126); Anion Gap 6 mmol/L (8-16); Aspartate Amino Transferase 33 U/L (14-36); Bilirubin,Total 0.9 mg/dL (0.2-1.3); Blood Urea Nitrogen 9 mg/dL (7-17); Calcium 8.8 mg/dL (8.4-10.2); Carbon Dioxide 32 mmol/L (22-30); Chloride 96 mmol/L (98-107); Estimated Glomerular Filt Rate > 60; Glucose 96 mg/dL (65-110); Potassium 3.3 mmol/L (3.4-5.0); Sodium 134 mmol/L (137-145)
[2023-10-15 09:58] LABS: Alanine Aminotransferase 19 U/L (6-35); Albumin Level 4.1 g/dL (3.5-5.1); Alkaline Phosphatase 71 U/L (38-126); Anion Gap 6 mmol/L (8-16); Aspartate Amino Transferase 30 U/L (14-36); Bilirubin,Total 0.9 mg/dL (0.2-1.3); Blood Urea Nitrogen 10 mg/dL (7-17); Calcium 9.1 mg/dL (8.4-10.2); Carbon Dioxide 31 mmol/L (22-30); Chloride 96 mmol/L (98-107); Estimated Glomerular Filt Rate > 60; Glucose 86 mg/dL (65-110); Potassium 3.2 mmol/L (3.4-5.0); Sodium 133 mmol/L (137-145)
[2023-11-01 11:33] LABS: Alanine Aminotransferase 20 U/L (6-35); Alkaline Phosphatase 74 U/L (38-126); Anion Gap 4 mmol/L (8-16); Aspartate Amino Transferase 33 U/L (14-36); Bilirubin,Total 0.8 mg/dL (0.2-1.3); Blood Urea Nitrogen 11 mg/dL (7-17); Calcium 9.2 mg/dL (8.4-10.2); Carbon Dioxide 33 mmol/L (22-30); Chloride 97 mmol/L (98-107); Estimated Glomerular Filt Rate > 60; Glucose 92 mg/dL (65-110); Potassium 3.4 mmol/L (3.4-5.0); Sodium 134 mmol/L (137-145)
[2023-11-15 09:54] LABS: Alanine Aminotransferase 16 U/L (6-35); Albumin Level 4.1 g/dL (3.5-5.1); Alkaline Phosphatase 73 U/L (38-126); Anion Gap 5 mmol/L (8-16); Aspartate Amino Transferase 25 U/L (14-36); Bilirubin,Total 0.7 mg/dL (0.2-1.3); Blood Urea Nitrogen 12 mg/dL (7-17); Calcium 9.1 mg/dL (8.4-10.2); Carbon Dioxide 31 mmol/L (22-30); Chloride 96 mmol/L (98-107); Estimated Glomerular Filt Rate 58; Glucose 93 mg/dL (65-110); Potassium 2.9 mmol/L (3.4-5.0); Sodium 132 mmol/L (137-145)
[2023-11-19 09:41] LABS: Alanine Aminotransferase 20 U/L (6-35); Albumin Level 4.4 g/dL (3.5-5.1); Alkaline Phosphatase 69 U/L (38-126); Anion Gap 7 mmol/L (8-16); Aspartate Amino Transferase 33 U/L (14-36); Blood Urea Nitrogen 7 mg/dL (7-17); Calcium 9.1 mg/dL (8.4-10.2); Carbon Dioxide 27 mmol/L (22-30); Chloride 96 mmol/L (98-107); Estimated Glomerular Filt Rate > 60; Glucose 96 mg/dL (65-110); Potassium 3.7 mmol/L (3.4-5.0); Sodium 130 mmol/L (137-145)
[2023-12-03 09:06] LABS: Alanine Aminotransferase 19 U/L (6-35); Albumin Level 4.5 g/dL (3.5-5.1); Alkaline Phosphatase 69 U/L (38-126); Anion Gap 5 mmol/L (8-16); Aspartate Amino Transferase 31 U/L (14-36); Bilirubin,Total 0.9 mg/dL (0.2-1.3); Blood Urea Nitrogen 10 mg/dL (7-17); Calcium 9.2 mg/dL (8.4-10.2); Carbon Dioxide 31 mmol/L (22-30); Chloride 99 mmol/L (98-107); Estimated Glomerular Filt Rate > 60; Glucose 101 mg/dL (65-110); Potassium 3.5 mmol/L (3.4-5.0); Sodium 135 mmol/L (137-145)
== END 2023-12-23 23:59 | disposition home or self-care (01) ==
LOC: ANHLAB 08:14
PROVIDERS: PCP Family Medicine; Visit Provider Family Medicine
DX: E87.6 Hypokalemia (principal)
CPT/HCPCS: 36415; 80053

== ENCOUNTER 2024-03-05 09:09 | Outpatient (CLI) | payer MEDICARE, MEDICAID, SELFPAY ==
--- NOTE | 2024-03-05 | ECG_ITS ---
Test Date: 2024-03-05 09:56:59 Measurements Intervals [place] Rate: 63 P: 20 OR: 200 QRS: 67 QRSD: 96 T: 32 QT: 394 QTc: 404 Interpretive Statements SINUS RHYTHM MINIMAL ST DEPRESSION [0.025+ mV ST DEPRESSION] No previous ECG available for comparison Electronically Signed On 03-05-2024 12:47:09 CDT by Kedar Rao M.D.
[2024-03-05 10:56] LABS: Basophils Absolute Auto 0.1 K/mm3 (0.0-0.1); Eosinophils Absolute Auto 0.1 K/mm3 (0-0.3); Eosinophils Percent Auto 1.7 % (0-4.4); Hematocrit 40.2 % (37.0-47.0); Hemoglobin 14.3 g/dL (12.0-15.0); Immature Granulocyte Absolute 0.02 K/mm3 (0.00-0.031); Immature Granulocyte Percent A 0.4 % (0-0.5); Lymphocytes Absolute Auto 1.39 K/mm3 (0.9-3.2); Lymphocytes Percent Auto 29.1 % (18.3-44.2); Mean Corpuscular HGB Conc 35.6 g/dl (32-36); Mean Corpuscular Hemoglobin 32.6 pg (26-34); Mean Corpuscular Volume 91.6 fl (80-100); Mean Platelet Volume 9.8 fl (7.4-10.4); Monocytes Absolute Auto 0.3 K/mm3 (0.1-0.6); Monocytes Percent Auto 6.5 % (2.6-8.5); Neutrophils Absolute Auto 2.9 K/mm3 (1.3-6.7); Neutrophils Percent Auto 61.3 % (45.5-73.1); Platelet Count Result 253 k/mm3 (150-375); Red Blood Count 4.39 M/mm3 (4.2-5.4); Red Cell Distribution Width 13.2 % (11.5-14.5); White Blood Count 4.8 K/mm3 (4.5-10.0)
[2024-03-05 11:02] LABS: Alanine Aminotransferase 27 U/L (6-35); Albumin Level 4.5 g/dL (3.5-5.1); Alkaline Phosphatase 83 U/L (38-126); Anion Gap 9 mmol/L (4-12); Aspartate Amino Transferase 39 U/L (14-36); Bilirubin,Total 0.9 mg/dL (0.2-1.3); Blood Urea Nitrogen 8 mg/dL (7-17); Calcium 9.1 mg/dL (8.4-10.2); Carbon Dioxide 31 mmol/L (22-30); Chloride 94 mmol/L (98-107); Cholesterol 154 mg/dL (0-200); Estimated Glomerular Filt Rate > 60; Glucose 95 mg/dL (65-110); HDL Direct 66 mg/dL; Potassium 3.1 mmol/L (3.4-5.0); Sodium 134 mmol/L (137-145); Triglycerides 93 mg/dL (<150)
[2024-03-05 11:14] LABS: LDL Cholesterol Direct 72 mg/dL
[2024-03-05 12:01] LABS: Vitamin D 25 Hydroxy 20.5 ng/mL
== END 2024-03-05 09:10 | disposition home or self-care (01) ==
PROVIDERS: PCP Family Medicine; Visit Provider Family Medicine
DX: R07.89 Other chest pain (principal); I10 Essential (primary) hypertension; E55.9 Vitamin D deficiency, unspecified
CPT/HCPCS: 36415; 80053; 80061; 82306; 85025; 93005

== ENCOUNTER 2024-03-18 09:06 | Outpatient (RCR) | payer MEDICARE, MEDICAID, SELFPAY ==
[2023-12-26 09:04] LABS: Alanine Aminotransferase 20 U/L (6-35); Albumin Level 4.3 g/dL (3.5-5.1); Alkaline Phosphatase 76 U/L (38-126); Anion Gap 6 mmol/L (4-12); Aspartate Amino Transferase 33 U/L (14-36); Bilirubin,Total 0.8 mg/dL (0.2-1.3); Blood Urea Nitrogen 12 mg/dL (7-17); Calcium 9.5 mg/dL (8.4-10.2); Carbon Dioxide 32 mmol/L (22-30); Chloride 97 mmol/L (98-107); Estimated Glomerular Filt Rate > 60; Glucose 101 mg/dL (65-110); Potassium 3.4 mmol/L (3.4-5.0); Sodium 135 mmol/L (137-145)
[2024-03-18 09:47] LABS: Alanine Aminotransferase 23 U/L (6-35); Albumin Level 4.5 g/dL (3.5-5.1); Alkaline Phosphatase 87 U/L (38-126); Anion Gap 8 mmol/L (4-12); Aspartate Amino Transferase 31 U/L (14-36); Bilirubin,Total 0.7 mg/dL (0.2-1.3); Blood Urea Nitrogen 14 mg/dL (7-17); Calcium 9.5 mg/dL (8.4-10.2); Carbon Dioxide 28 mmol/L (22-30); Chloride 102 mmol/L (98-107); Estimated Glomerular Filt Rate 57; Glucose 98 mg/dL (65-110); Potassium 3.9 mmol/L (3.4-5.0); Sodium 138 mmol/L (137-145)
== END 2024-03-25 23:59 | disposition home or self-care (01) ==
LOC: ANHLAB 09:06
PROVIDERS: PCP Family Medicine; Visit Provider Family Medicine
DX: E87.6 Hypokalemia (principal)
CPT/HCPCS: 36415; 80053

== ENCOUNTER 2024-03-24 20:15 | Emergency (ER) | payer MEDICARE, MEDICAID, SELFPAY ==
--- NOTE | ~2024-03-24 | XR_ITS ---
EXAM: XR foot LT min 3V DATE: 03/24/2024 20:35 HISTORY: left foot pain, injury ON 03-06-24 PAIN ACROSS METATARSALS . COMPARISON: None available. FINDINGS: Normal mineralization. Oblique, intra-articular, nondisplaced fracture of the proximal and medial aspect of the left fifth middle phalange. The left fifth middle and distal phalanges appear t o be fused. No lytic or blastic lesion. Mild degenerative change at the first MTP joint. Achilles and minimal plantar enthesopathy No erosion or periosteal change. Soft tissues within normal limits. IMPRESSION: Oblique, intra-articular, nondisplaced fracture of the proximal and medial aspect of the left fifth middle phalange. Reviewed, dictated and finalized at location K.
[2024-03-24 20:16] VITALS: BP 164/94; PULSE 74; RESP 15; TEMP 36.4; O2SAT 100
--- NOTE | 2024-03-24 21:09 | ED.LOWEXIN ---
HPI - Extremity Injury (Lower) General Chief Complaint: Extremity Injury, Lower Stated Complaint: L foot injury Time Seen by Provider: 03/24/24 20:25 Source: patient Mode of arrival: ambulatory Limitations: no limitations History of Present Illness HPI Narrative: This is a 54 year old female that presents to the ER for left foot injury sustained a couple weeks ago. Reports she got her pinky toe caught on something while running. Has had continued pain in the 3rd, 4th and 5th toes since. Reports decreased range of motion due to pain. Denies numbness. Related Data Home Medications Medication Instructions Recorded Confirmed azathioprine 50 mg tablet 50 mg PO DAILY 04/21/21 08/23/23 budesonide 3 mg PO 04/21/21 capsule,delayed,extended release metoprolol succinate 25 mg 25 mg PO DAILY 04/21/21 08/23/23 tablet,extended release 24 hr montelukast 10 mg tablet mg 04/21/21 potassium chloride 20 mEq meq PO 04/21/21 tablet,extended release(part/cryst) (Klor-Con M) hydrocodone 7.5 mg-acetaminophen tablet 08/23/23 325 mg tablet Allergies Allergy/AdvReac Type Severity Reaction Status Date / Time sulfamethoxazole Allergy Severe THROAT Verified 03/24/24 20:21 SWELLING trimethoprim Allergy Severe THROAT Verified 03/24/24 20:21 SWELLING amoxicillin Allergy Intermediate SWELLING/RA Verified 03/24/24 20:21 SH cefadroxil Allergy Intermediate Rash Verified 03/24/24 20:21 latex Allergy Intermediate Other Verified 03/24/24 20:21 levofloxacin Allergy Intermediate FACIAL Verified 03/24/24 20:21 SWELLING lidocaine Allergy Intermediate THROAT Verified 03/24/24 20:21 SWELLING rifampin Allergy Intermediate Rash Verified 03/24/24 20:21 clarithromycin Allergy Mild SWELLING Verified 03/24/24 20:21 erythromycin base Allergy Mild SWELLING Verified 03/24/24 20:21 ofloxacin Allergy Mild RASH Verified 03/24/24 20:21 Penicillins Allergy Mild SWELLING Verified 03/24/24 20:21 adhesive Allergy Unknown Unknown Verified 03/24/24 20:21 morphine AdvReac Mild NAUSEA AND Verified 03/24/24 20:21 VOMITING POTASSIUM CLAVULANATE Allergy Intermediate SWELLING/RA Uncoded 08/20/23 20:37 SH dermabond Allergy Mild Rash Uncoded 08/20/23 20:37 Review of Systems Review of Systems: CONSTITUTIONAL: Denies fever MUSCULOSKELETAL: Reports joint pain, and myalgia. NEUROLOGIC: Denies numbness All systems reviewed & are unremarkable except as noted in HPI and below PMFSH Past Medical History Medical History (Updated 03/24/24 @ 21:46 by Alycia Jackson PA-C) History of Crohn's disease History of hypertension Social History Social History (Updated 03/24/24 @ 21:14 by Alycia Jackson PA-C) Substance use: never Exam Narrative: GENERAL: Well-appearing, well-nourished, and in no acute distress. HEAD: Normocephalic, atraumatic. EYES: EOMI. EXTREMITIES: Normal range of motion. Mild edema about the left 5th toe. Normal DP pulse. Normal sensation SKIN: Warm, dry, no rash. NEURO: No focal deficits. Alert and oriented x3. PSYCH: Normal mood and affect Course Course Emergency Course: Patient updated on workup and agrees with plan of care Vital Signs Vital signs: Vital Signs Temperature 97.5 F L 03/24/24 20:16 Pulse Rate 74 03/24/24 20:16 Respiratory Rate 15 03/24/24 20:16 Blood Pressure 164/94 H 03/24/24 20:16 Pulse Oximetry 100 03/24/24 20:16 Oxygen Delivery Room Air 03/24/24 20:16 Temperature 97.5 F L 03/24/24 20:16 Pulse Rate 74 03/24/24 20:16 Respiratory Rate 15 03/24/24 20:16 Blood Pressure 164/94 H 03/24/24 20:16 Pulse Oximetry 100 03/24/24 20:16 Oxygen Delivery Room Air 03/24/24 20:16 MDM - Extremity Injury (Lower) MDM Narrative Medical decision making narrative: Patient presents to the emergency department for left foot injury sustained couple of weeks prior to arrival. She is neurovascularly intact. Left foot x-ray shows a 5th toe fracture. P
== END 2024-03-24 22:09 | disposition home or self-care (01) ==
PROVIDERS: Emergency Provider Physician Assistant; PCP Family Medicine
DX: S92.525A Nondisplaced fracture of middle phalanx of left lesser toe(s), initial encounter for closed fracture (principal); I10 Essential (primary) hypertension; K50.90 Crohn's disease, unspecified, without complications; Z79.899 Other long term (current) drug therapy; Z79.52 Long term (current) use of systemic steroids; W22.8XXA Striking against or struck by other objects, initial encounter
CPT/HCPCS: 73630; 99284

== ENCOUNTER 2024-04-03 09:15 | Outpatient (CLI) | payer MEDICARE, MEDICAID, SELFPAY ==
[2024-04-03 10:18] LABS: Basophils Percent Auto 0.9 % (0.2-1.2); Eosinophils Absolute Auto 0.1 K/mm3 (0-0.3); Eosinophils Percent Auto 1.7 % (0-4.4); Hematocrit 41.9 % (37.0-47.0); Hemoglobin 14.6 g/dL (12.0-15.0); Immature Granulocyte Absolute 0.02 K/mm3 (0.00-0.031); Immature Granulocyte Percent A 0.4 % (0-0.5); Lymphocytes Absolute Auto 1.49 K/mm3 (0.9-3.2); Lymphocytes Percent Auto 32.2 % (18.3-44.2); Mean Corpuscular HGB Conc 34.8 g/dl (32-36); Mean Corpuscular Volume 91.9 fl (80-100); Monocytes Absolute Auto 0.3 K/mm3 (0.1-0.6); Monocytes Percent Auto 6.5 % (2.6-8.5); Neutrophils Absolute Auto 2.7 K/mm3 (1.3-6.7); Neutrophils Percent Auto 58.3 % (45.5-73.1); Platelet Count Result 251 k/mm3 (150-375); Red Blood Count 4.56 M/mm3 (4.2-5.4); Red Cell Distribution Width 13.3 % (11.5-14.5); White Blood Count 4.6 K/mm3 (4.5-10.0)
[2024-04-03 10:32] LABS: Alanine Aminotransferase 21 U/L (6-35); Albumin Level 4.2 g/dL (3.5-5.1); Alkaline Phosphatase 84 U/L (38-126); Anion Gap 9 mmol/L (4-12); Aspartate Amino Transferase 32 U/L (14-36); Bilirubin,Total 0.8 mg/dL (0.2-1.3); Blood Urea Nitrogen 10 mg/dL (7-17); Calcium 9.1 mg/dL (8.4-10.2); Carbon Dioxide 33 mmol/L (22-30); Chloride 93 mmol/L (98-107); Cholesterol 143 mg/dL (0-200); Estimated Glomerular Filt Rate 57; Glucose 101 mg/dL (65-110); HDL Direct 69 mg/dL; Potassium 2.9 mmol/L (3.4-5.0); Sodium 135 mmol/L (137-145); Triglycerides 94 mg/dL (<150)
[2024-04-03 10:43] LABS: LDL Cholesterol Direct 70 mg/dL
[2024-04-03 11:02] LABS: Vitamin D 25 Hydroxy 14.8 ng/mL
== END 2024-04-03 09:16 | disposition home or self-care (01) ==
PROVIDERS: PCP Family Medicine; Visit Provider Family Medicine
DX: K50.90 Crohn's disease, unspecified, without complications (principal); I10 Essential (primary) hypertension
CPT/HCPCS: 36415; 80053; 80061; 82306; 85025

== ENCOUNTER 2024-06-12 11:38 | Emergency (ER) | payer MEDICARE, MEDICAID, SELFPAY ==
--- NOTE | 2024-06-12 11:46 | ED.URI ---
HPI - URI/Sore Throat General Chief Complaint: Upper Respiratory Infection Stated Complaint: Cough Time Seen by Provider: 06/12/24 12:02 Source: patient and RN notes reviewed Mode of arrival: ambulatory Limitations: no limitations History of Present Illness HPI Narrative: 54-year-old female presents with concern for four week history of sinus congestion, pressure, pain, reports that is involved into hoarse voice and cough for 2 weeks. Reports she has tried multiple [id number] cold medicines without relief. She denies fever. MD elicited complaint: cough, nasal congestion and sinus pain Related Data Home Medications Medication Instructions Recorded Confirmed azathioprine 50 mg tablet 50 mg PO DAILY 04/21/21 08/23/23 budesonide 3 mg PO 04/21/21 capsule,delayed,extended release metoprolol succinate 25 mg 25 mg PO DAILY 04/21/21 08/23/23 tablet,extended release 24 hr montelukast 10 mg tablet mg 04/21/21 potassium chloride 20 mEq meq PO 04/21/21 tablet,extended release(part/cryst) (Klor-Con M) hydrocodone 7.5 mg-acetaminophen tablet 08/23/23 325 mg tablet Allergies Allergy/AdvReac Type Severity Reaction Status Date / Time sulfamethoxazole Allergy Severe THROAT Verified 03/24/24 20:21 SWELLING trimethoprim Allergy Severe THROAT Verified 03/24/24 20:21 SWELLING amoxicillin Allergy Intermediate SWELLING/RA Verified 03/24/24 20:21 SH cefadroxil Allergy Intermediate Rash Verified 03/24/24 20:21 latex Allergy Intermediate Other Verified 03/24/24 20:21 levofloxacin Allergy Intermediate FACIAL Verified 03/24/24 20:21 SWELLING lidocaine Allergy Intermediate THROAT Verified 03/24/24 20:21 SWELLING rifampin Allergy Intermediate Rash Verified 03/24/24 20:21 clarithromycin Allergy Mild SWELLING Verified 03/24/24 20:21 erythromycin base Allergy Mild SWELLING Verified 03/24/24 20:21 ofloxacin Allergy Mild RASH Verified 03/24/24 20:21 Penicillins Allergy Mild SWELLING Verified 03/24/24 20:21 adhesive Allergy Unknown Unknown Verified 03/24/24 20:21 morphine AdvReac Mild NAUSEA AND Verified 03/24/24 20:21 VOMITING POTASSIUM CLAVULANATE Allergy Intermediate SWELLING/RA Uncoded 08/20/23 20:37 SH dermabond Allergy Mild Rash Uncoded 08/20/23 20:37 Review of Systems Review of Systems: CONSTITUTIONAL: Denies malaise, chills, sweats, or fever. EYES: Denies visual changes, redness, or discharge. ENT: Reports rhinorrhea, congestion, sinus pain CARDIOVASCULAR: Denies chest pain, palpitations, or edema. RESPIRATORY: Reports cough and chest congestion. Denies dyspnea. GASTROINTESTINAL: Denies abdominal pain, nausea, vomiting, diarrhea SKIN: Denies rash or itching. MUSCULOSKELETAL: Denies myalgia. NEUROLOGIC: Denies headache. All systems reviewed & are unremarkable except as noted in HPI and below PMFSH Past Medical History Medical History (Updated 06/12/24 @ 12:14 by Lissa Steiner NP) History of Crohn's disease History of hypertension Social History Social History (Updated 03/24/24 @ 21:14 by ALISON FlorentinoC) Substance use: never Comments At time of signature, agree with nursing past medical, surgical, social and family history. There is no relevant family history pertinent to the presenting complaint Exam Narrative: GENERAL: Nontoxic-appearing, well-nourished, and in no acute distress. HEAD: Normocephalic EYES: PERRLA, conjunctivae clear ENT: Nares clear. Mucous membranes moist. TM pearly muhammad with dull light reflex bilaterally; no tragal tenderness. Oropharynx not erythematous without lesions. Tonsils not enlarged and without exudate, no drooling, no hoarseness, no trismus, uvula midline. NECK: Supple. No lymphadenopathy CHEST: Clear to auscultation, breath sounds equal. No wheezing, rhonchi, rales, or stridor. No respiratory distress, speaks in full sentences. HEART: Regular rate and rhythm. No murmur heard. SKIN: Warm, dry, no rash. NEURO: Alert and orien
[2024-06-12 11:52] VITALS: BP 153/79; PULSE 75; RESP 16; TEMP 36.6; O2SAT 100
== END 2024-06-12 12:20 | disposition home or self-care (01) ==
PROVIDERS: Emergency Provider Nurse Practitioner; PCP Family Medicine
DX: J32.9 Chronic sinusitis, unspecified (principal); J40 Bronchitis, not specified as acute or chronic; K50.90 Crohn's disease, unspecified, without complications; I10 Essential (primary) hypertension
CPT/HCPCS: 99213; G0463

== ENCOUNTER 2024-06-18 14:09 | Outpatient (CLI) | payer MEDICARE, MEDICAID, SELFPAY ==
[2024-06-18 14:44] LABS: Basophils Absolute Auto 0.1 K/mm3 (0.0-0.1); Basophils Percent Auto 0.8 % (0.2-1.2); Eosinophils Absolute Auto 0.1 K/mm3 (0-0.3); Eosinophils Percent Auto 1.2 % (0-4.4); Hematocrit 40.3 % (37.0-47.0); Immature Granulocyte Absolute 0.05 K/mm3 (0.00-0.031); Immature Granulocyte Percent A 0.6 % (0-0.5); Lymphocytes Absolute Auto 2.71 K/mm3 (0.9-3.2); Mean Corpuscular HGB Conc 34.7 g/dl (32-36); Mean Corpuscular Volume 92.2 fl (80-100); Mean Platelet Volume 9.4 fl (7.4-10.4); Monocytes Absolute Auto 0.6 K/mm3 (0.1-0.6); Monocytes Percent Auto 6.4 % (2.6-8.5); Neutrophils Absolute Auto 5.5 K/mm3 (1.3-6.7); Platelet Count Result 305 k/mm3 (150-375); Red Blood Count 4.37 M/mm3 (4.2-5.4); Red Cell Distribution Width 13.9 % (11.5-14.5)
[2024-06-18 14:56] LABS: Alanine Aminotransferase 22 U/L (6-35); Albumin Level 4.1 g/dL (3.5-5.1); Alkaline Phosphatase 79 U/L (38-126); Anion Gap 5 mmol/L (4-12); Aspartate Amino Transferase 30 U/L (14-36); Bilirubin,Total 0.6 mg/dL (0.2-1.3); Blood Urea Nitrogen 14 mg/dL (7-17); Calcium 8.6 mg/dL (8.4-10.2); Carbon Dioxide 34 mmol/L (22-30); Chloride 91 mmol/L (98-107); Estimated Glomerular Filt Rate 51; Glucose 75 mg/dL (65-110); Sodium 130 mmol/L (137-145)
== END 2024-06-18 14:10 | disposition home or self-care (01) ==
PROVIDERS: PCP Family Medicine; Visit Provider Family Medicine
DX: R53.83 Other fatigue (principal)
CPT/HCPCS: 36415; 80053; 85025

== ENCOUNTER 2024-06-23 08:47 | Outpatient (CLI) | payer MEDICARE, MEDICAID, SELFPAY ==
[2024-06-23 09:18] LABS: Basophils Absolute Auto 0.1 K/mm3 (0.0-0.1); Basophils Percent Auto 0.9 % (0.2-1.2); Eosinophils Absolute Auto 0.1 K/mm3 (0-0.3); Eosinophils Percent Auto 1.4 % (0-4.4); Hematocrit 43.1 % (37.0-47.0); Immature Granulocyte Absolute 0.02 K/mm3 (0.00-0.031); Immature Granulocyte Percent A 0.3 % (0-0.5); Lymphocytes Absolute Auto 1.72 K/mm3 (0.9-3.2); Lymphocytes Percent Auto 26.7 % (18.3-44.2); Mean Corpuscular HGB Conc 34.8 g/dl (32-36); Mean Corpuscular Hemoglobin 32.5 pg (26-34); Mean Corpuscular Volume 93.5 fl (80-100); Mean Platelet Volume 9.4 fl (7.4-10.4); Monocytes Absolute Auto 0.5 K/mm3 (0.1-0.6); Neutrophils Absolute Auto 4.1 K/mm3 (1.3-6.7); Neutrophils Percent Auto 63.7 % (45.5-73.1); Platelet Count Result 287 k/mm3 (150-375); Red Blood Count 4.61 M/mm3 (4.2-5.4); White Blood Count 6.5 K/mm3 (4.5-10.0)
[2024-06-23 09:25] LABS: Alanine Aminotransferase 22 U/L (6-35); Albumin Level 4.2 g/dL (3.5-5.1); Alkaline Phosphatase 88 U/L (38-126); Anion Gap 6 mmol/L (4-12); Aspartate Amino Transferase 28 U/L (14-36); Bilirubin,Total 0.7 mg/dL (0.2-1.3); Blood Urea Nitrogen 8 mg/dL (7-17); Calcium 9.4 mg/dL (8.4-10.2); Carbon Dioxide 33 mmol/L (22-30); Chloride 95 mmol/L (98-107); Estimated Glomerular Filt Rate 57; Glucose 98 mg/dL (65-110); Potassium 4.1 mmol/L (3.4-5.0); Sodium 134 mmol/L (137-145)
== END 2024-06-23 08:48 | disposition home or self-care (01) ==
PROVIDERS: PCP Family Medicine; Visit Provider Family Medicine
DX: R53.83 Other fatigue (principal); E87.6 Hypokalemia
CPT/HCPCS: 36415; 80053; 85025

== ENCOUNTER 2025-01-13 09:39 | Outpatient (CLI) | payer MEDICARE, MEDICAID, SELFPAY ==
--- NOTE | ~2025-01-13 | US_ITS ---
Renal-Bladder ultrasound Clinical History: Chronic kidney disease Technique: Real-time sonographic imaging of the kidneys and urinary bladder was performed. Findings: The right kidney measures 10.9 cm in length and the left kidney measures 10.1 cm. There is no hydronephrosis or renal calculus identified. Renal cortical echogenicity is within normal limits. No renal mass lesion is identified. The urinary bladder is moderately distended at the time of this exam. No intraluminal echoes are iden tified. No abnormal wall thickening is seen. Impression: Unremarkable ultrasound of the kidneys and urinary bladder. Reviewed, dictated and finalized at location M. Impression: Unremarkable ultrasound of the kidneys and urinary bladder.
--- OUTSIDE RECORDS SUMMARY | 2025-01-13 10:46 | XMS_ITS | Encounter Summary ---
Author Organization [facility] Health Address [address] [place] [address] Care Team Providers Care Bakery Pastry Internship Name Role Phone Miah Manuel Primary Care Provider Encounter Details Date Type Department Care Team (Late st Contact Info) Description 07/12/2022 Patient Outreach [facility] [address] [place] [id number] Radha Spears, RN Social History Tobacco Use Types Packs/Day Years Used Date Smoking Tobacco: Former Cigarettes 2 20 0 01/13/1989 - 01/13/2009 Smokeless Tobacco: Never Alcohol Use Standard Drinks/Week Comments No 0 (1 standard drink = 0.6 oz pur e alcohol) PHQ-2 Answer Date Recorded PHQ2 TOTAL SCORE 2 04/17/2021 Comments No Sex and Gender Information Value Date Recorded Sex Assigned at Female 02/25/2022 9:03 AM CDT Legal Sex Female 6:03 AM COAGULATING BATH OPERATOR Gender Identity Female 02/25/2022 9:03 AM CDT Sexual Orientation Not on file documented as of this encounter Functional Status * Is person deaf or have serious hearing difficulty? Answer Date of Assessment Author Yes 07/27/2020 2:55 PM COAGULATING BATH OPERATOR Preston Castillo RN * Is person blind or have serious difficulty seeing? Answer Date of Assessment Author Yes 07/27/2020 2:55 PM COAGULATING BATH OPERATOR Anna, Ja net, RN * Does person have serious difficulty walking/climbing stairs? Answer Date of Assessment Author No 07/27/2020 2:55 PM Preston Pickard RN * Does person have difficulty dressing/bathing? Answer Date of Assessment Author No 07/27/2020 2:55 PM Preston Pickard RN * Does person have difficulty doing errands alone? Answer Date of Assessment Author No 07/27/2020 2:55 PM Preston Pickard RN documented as of this encounter Mental Status * Does person have difficulty concentrating/remembering/making decisions? Answer Entry Date Author No 07/27/2020 2:55 PM Preston Pickard RN documented in this encounter Plan of Treatment Upcoming Encounters Date Type Department Care Team (Late st Contact Info) Description 01/28/2025 10:00 AM CDT Office Visit [facility] - [address] [facility] [address], [place] [address] 07/02/2025 9:30 AM CDT Appointment [facility] [address] [place] [address] Vijaya Coombs MD [address] [place] [address] 11/04/2025 10:40 AM COAGULATING BATH OPERATOR Office Visit [facility] - General Dermatology [address] [place] [phone] Bethany Johnson DO [address] [place] [phone] documented as of this encounter Goals Goal Patient Goal Type Associated Problems Recent Progress Patient-Stated? Author Safety General On track( 023 8:29 AM CDT) Nneka Zuleta RN Note: Expected end date: Ongoing Interventions: Your nurse will assess your risk for falls/injury each visit Use appropriate and safe transfer methods Medication Management General On track( 024 10:54 AM CDT) Nneka Zuleta RN Note: Expected end date: Ongoing Interventions: Take all medications as prescribed Let your doctor know right away about any changes in your medications documented as of this encounter Visit Diagnoses Not on filedocumented in this encounter Care Teams Bak[employer] Internship Relationship Specialty Start Date End Date Miah Manuel [address] [place] [phone] PCP - General 04/11/18 documented as of this encounter
--- OUTSIDE RECORDS SUMMARY | 2025-01-13 10:46 | XMS_ITS | Clinical Summary ---
Author Organization [facility] Address [address] [place] [address] Care Team Providers Care Plate Mounter Name Role Phone Unavailable Primary Care Provider Unavailabl e Social History Tobacco Use Types Packs/Day Years Used Date Smoking Tobacco: Never Assessed Comments Unknown Sex and Gender Information Value Date Recorded Sex Assigned at Not on file Legal Sex Female 4:55 PM CDT Gender Identity Not on file Sexual Orientation Not on file Plan of Treatment Health Maintenance Due Date Last Done Comments Cervical Cancer Screening Pa p Smear (Age 30 to 64) Every 3 Years 1968 Colorectal Cancer Screening Colonoscopy (10 Years) 1968 Annual Physical 1971 Hepatitis C 1986 DTaP, Tdap and Td Vaccines ( 1 - Tdap) 1987 Hepatitis B Vaccines (1 of 3 - 19+ 3-dose series) 1987 Cervical Cancer Screening Pa p with HPV Testing (Age 30 to 64) Every 5 Years 1998 Cervical Cancer Screening with HPV 1998 Mammogram Screening 2008 Pneumococcal Vaccine: 50+ Ye ars (1 of 1 - PCV) 2018 Zoster Vaccines (1 of 2) 2018 COVID-19 Vaccine ( - 2023-2 5 season) 2024 Meningococcal B Vaccine Aged Out No l onger eligible based on patient's age to complete this topic Meningococcal Vaccine Aged Out No randall willem eligible based on patient's age to complete this topic RSV Immunizations Under 20 Months Aged Out No longer eligible based on patient's age to complete this topic
--- OUTSIDE RECORDS SUMMARY | 2025-01-13 10:46 | XMS_ITS | Encounter Summary ---
Author Organization [facility] Address 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
--- OUTSIDE RECORDS SUMMARY | 2025-01-13 10:46 | XMS_ITS | Clinical Summary ---
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 Active Loperamide HCl (IMODIUM A-D PO) Take by mouth. Active AZATHIOPRINE PO Take by mouth. Active Cholecalciferol (VITAMIN D PO) Take by mouth. Active METOPROLOL TARTRATE PO Take by mouth. Active HYDROCHLOROTHIAZ AYE PO Take by mouth. Active FLUTICASONE PROPIONATE, NASAL, NA by Nasal route. Active Montelukast Sodium (SINGULAIR PO) Take by mouth. Active Albuterol Sulfate (VENTOLIN HFA IN) take by inhalation. Active Fluticasone-Salm eterol (ADVAIR DISKUS IN) take by inhalation. Active HYDROcodone-acet aminophen (NORCO) 7.5-325 MG Tablet Take 1 Tab by mouth every 6 hours as needed. Active Simethicone (PHAZYME PO) Take by mouth. Active RABEprazole Sodium (ACIPHEX PO) Take by mouth. Active Family History Medical History Relation Name Comments Hypertension Mother Stroke Mother Heart Attack Sister Relation Name Status Comments Mother Sister Social History Tobacco Use Types Packs/Day Years Used Date Smoking Tobacco: Former Cigarettes Q uit: 04/26/2007 Smokeless Tobacco: Never Comments No Sex and Gender Information Value Date Recorded Sex Assigned at Not on file Legal Sex Female 7:57 PM CDT Gender Identity Not on file Sexual Orientation Not on file Last Filed Vital Signs Vital Sign Reading Time Taken Comments Blood Pressure 104/70 05/27/2018 11:10 AM CDT Pulse 92 05/27/2018 11:10 AM CDT Temperature - - Respiratory Rate - - Oxygen Saturation - - Inhaled Oxygen Concentration - - Weight 81.6 kg (180 lb) 05/27/2018 10:35 AM CDT Height 167.6 cm (5' 6 ) 05/27/2018 10:35 AM CDT Body Mass Index 29.05 05/27/2018 10:35 AM CDT Plan of Treatment Health Maintenance Due Date Last Done Comments Hepatitis C Virus (HCV) Screening 1968 TdaP Immunization 1968 SARS-COV-2 Immunization (#1) 1973 Hepatitis B Immunization (1 of 3 - 19+ 3-dose series) 1987 Zoster Immunization (1 of 2) 1987 Pap Smear 1989 Cervical Cancer Screening (CCS) 1998 HPV/Cotest 1998 Colonoscopy 2013 Colorectal Cancer Screening 2013 Cologuard 2018 Immunochemical Fecal Occult Blood 2018 Pneumococcal Immunization (5 0+ years) (1 of 1 - PCV) 2018 Influenza Immunization (#1) 2024 Mammogram 08/29/2024 08/29/2023, 06/21/2021 Respiratory Syncytial Virus (RSV) Immunization (Adult) (1 - 1-dose 75+ series) 2043 Meningococcal Immunization (ACWY) Aged Out No longer eligible b ased on patient's age to complete this topic Rotavirus Immunization Aged Out No lo nger eligible based on patient's age to complete this topic Procedures Procedure Name Priority Date/Time Associated Diagnosis Comments MIHAELA DIAG BILATERAL DIGITAL W CAD W JAIR Routine 08/29/2023 11:00 AM 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 AMENDMENT: 08/30/2023 Fady Morrison M.D. CORRECTION TO REPORT: IMPRESSION: OVERALL STUDY BIRADS: 2 BENIGN The findings in the right breast are normal and are now considered benign. A new cyst is present in the left breast. There is no mammographic or sonographic evidence of malignancy. A 1 year screening mammogram is recommended. The results and recommendations were discussed with the patient. Amended BI-RADS: 2 Benign letter sent: Normal Exam - MIHAELA DIAG BILATERAL DIGITAL W CAD W JAIR - [facility] US BREAST LIMITED RYAN BILATERAL DIGITAL DIAGNOSTIC MAMMOGRAM 3D/2D WITH CAD WITH MEDIOLATERAL OBLIQUE CRANIOCAUDAL AND BILATERAL ULTRASOUND: 08/29/2023 The study was acquired using digital technology and interpreted from soft copy. Current study was also evaluated with ICAD version 7.2. 2D digital mammographic views, as well as 3D digital tomosynthesis were performed in the CC and MLO projections. CLINICAL: Delayed 2 year follow-up right breast. New onset of bilateral nipple pain and sensitivity for 1 month that has diminished in the past 2 weeks. Due for annual exam. Personal history of pre-cancerous colon polyps removed. Maternal grandmother had ovarian cancer. No family history of breast cancer. COMPARISONS: Comparison is made to exams dated: 02/27/2022, 07/11/2021, 06/21/2021 [facility], and 06/06/2017 [facility]. BREAST TISSUE:There are scattered fibroglandular densities in both breasts. FINDINGS: BILATERAL DIAGNOSTIC MAMMOGRAM: The previously seen mass seen in the anterior right breast centrally on the craniocaudal view appears stable or smaller. There is a new mass at the 9 o'clock position of the left breast, anterior to middle. No other significant masses or calcifications are seen in either breast on the mammogram. Further evaluation was obtained with sonography. TARGETED RIGHT BREAST ULTRASOUND: At the 6 o'clock position of the right breast, 1 centimeter from the nipple, there is a 9 mm centimeter focus which contains cystic components or dilated ducts. This previously measured 9 mm. This may be an area of fibrocystic change. This can now be classified as benign. Within the left breast, at the 9 o'clock position, 3 cm from the nipple, a 6 mm cyst corresponds to the mammographic finding. No suspicious lesions are seen. IMPRESSION: OVERALL STUDY BIRADS: 2 BENIGN The findings in the right breast are normal hilar and are now considered benign. A new cyst is present in the left breast. There is no mammographic or sonographic evidence of malignancy. A 1 year screening mammogram is recommended. The results and recommendations were discussed with the patient. Electronically signed by: Fady Morrison M.D. ll/:08/29/2023 11:31:03 Sorting Machine Attendant(s): RT Bowen(R)(M), [facility]; Farrah Duran RDMS, [facility] letter sent: Normal Exam Reading location: [facility] OVERALL STUDY BIRADS: 2 Benign Narrative 08/30/2023 10:31 AM SHORT HAUL DRIVER - MIHAELA DIAG BILATERAL DIGITAL W CAD W JAIR - [facility] US BREAST LIMITED RYAN BILATERAL DIGITAL DIAGNOSTIC MAMMOGRAM 3D/2D WITH CAD WITH MEDIOLATERAL OBLIQUE CRANIOCAUDAL AND BILATERAL ULTRASOUND: 08/29/2023 The study was acquired using digital technology and interpreted from soft copy. Current study was also evaluated with ICAD version 7.2. 2D digital mammographic views, as well as 3D digital tomosynthesis were performed in the CC and MLO projections. CLINICAL: Delayed 2 year follow-up right breast. New onset of bilateral nipple pain and sensitivity for 1 month that has diminished in the past 2 weeks. Due for annual exam. Personal history of pre-cancerous colon polyps removed. Maternal grandmother had ovarian cancer. No family history of breast cancer. COMPARISONS: Comparison is made to exams dated: 02/27/2022, 07/11/2021, 06/21/2021 [facility], and 06/06/2017 [facility]. BREAST TISSUE:There are scattered fibroglandular densities in both breasts. FINDINGS: BILATERAL DIAGNOSTIC MAMMOGRAM: The previously seen mass seen in the anterior right breast centrally on the craniocaudal view appears stable or smaller. There is a new mass at the 9 o'clock position of the left breast, anterior to middle. No other significant masses or calcifications are seen in either breast on the mammogram. Further evaluation was obtained with sonography. TARGETED RIGHT BREAST ULTRASOUND: At the 6 o'clock position of the right breast, 1 centimeter from the nipple, there is a 9 mm centimeter focus which contains cystic components or dilated ducts. This previously measured 9 mm. This may be an area of fibrocystic change. This can now be classified as benign. Within the left breast, at the 9 o'clock position, 3 cm from the nipple, a 6 mm cyst corresponds to the mammographic finding. No suspicious lesions are seen. IMPRESSION: OVERALL STUDY BIRADS: 2 BENIGN The findings in the right breast are normal hilar and are now considered benign. A new cyst is present in the left breast. There is no mammographic or sonographic evidence of malignancy. A 1 year screening mammogram is recommended. The results and recommendations were discussed with the patient. Electronically signed by: Fady Morrison M.D. ll/:08/29/2023 11:31:03 Sorting Machine Attendant(s): RT Bowen(R)(M), [facility]; Farrah Duran RDMS, [facility] letter sent: Normal Exam Reading location: [facility] OVERALL STUDY BIRADS: 2 Benign Procedure Note Fady Morrison MD - 08/30/2023 - MIHAELA DIAG BILATERAL DIGITAL W CAD W JAIR - [facility] US BREAST LIMITED RYAN BILATERAL DIGITAL DIAGNOSTIC MAMMOGRAM 3D/2D WITH CAD WITH MEDIOLATERAL OBLIQUE CRANIOCAUDAL AND BILATERAL ULTRASOUND: 08/29/2023 The study was acquired using digital technology and interpreted from soft copy. Current study was also evaluated with ICAD version 7.2. 2D digital mammographic views, as well as 3D digital tomosynthesis were performed in the CC and MLO projections. CLINICAL: Delayed 2 year follow-up right breast. New onset of bilateral nipple pain and sensitivity for 1 month that has diminished in the past 2 weeks. Due for annual exam. Personal history of pre-cancerous colon polyps removed. Maternal grandmother had ovarian cancer. No family history of breast cancer. COMPARISONS: Comparison is made to exams dated: 02/27/2022, 07/11/2021, 06/21/2021 [facility], and 06/06/2017 [facility]. BREAST TISSUE:There are scattered fibroglandular densities in both breasts. FINDINGS: BILATERAL DIAGNOSTIC MAMMOGRAM: The previously seen mass seen in the anterior right breast centrally on the craniocaudal view appears stable or smaller. There is a new mass at the 9 o'clock position of the left breast, anterior to middle. No other significant masses or calcifications are seen in either breast on the mammogram. Further evaluation was obtained with sonography. TARGETED RIGHT BREAST ULTRASOUND: At the 6 o'clock position of the right breast, 1 centimeter from the nipple, there is a 9 mm centimeter focus which contains cystic components or dilated ducts. This previously measured 9 mm. This may be an area of fibrocystic change. This can now be classified as benign. Within the left breast, at the 9 o'clock position, 3 cm from the nipple, a 6 mm cyst corresponds to the mammographic finding. No suspicious lesions are seen. IMPRESSION: OVERALL STUDY BIRADS: 2 BENIGN The findings in the right breast are normal hilar and are now considered benign. A new cyst is present in the left breast. There is no mammographic or sonographic evidence of malignancy. A 1 year screening mammogram is recommended. The results and recommendations were discussed with the patient. Electronically signed by: Fady Morrison M.D. ll/:08/29/2023 11:31:03 Sorting Machine Attendant(s): RT Bowen(R)(M), [facility]; Farrah Duran RDMS, [facility] letter sent: Normal Exam Reading location: [facility] OVERALL STUDY BIRADS: 2 Benign Fredy Rutherford MD [facility] MAMMO ORDERABLES Edite d Result - Final from Last 3 Months or Most Recently Relevant to Health Maintenance Insurance MEDICARE [place]ICAID [place] Care Teams Ice Cream Chef Relationship Specialty Start Date End Date Miah Manuel MD [address] [place] [id number] PCP - General Family Medicine 04/30/18
--- OUTSIDE RECORDS SUMMARY | 2025-01-13 10:46 | XMS_ITS | Referral Summary ---
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 Name Role Phone Miah Manuel MD Primary Care Provider [phone] Allergies Active Allergy Reactions Criticality Noted Date Comments Amoxicillin Swelling,Rash Medium Erythromycin Swelling,Rash Medium Latex Rash Medium Levofloxacin Swelling,Rash Medium Lidocaine Swelling Medium Ofloxacin Swelling,Rash Medium Penicillins Swelling,Rash Medium Rifampin Rash Medium Sulfamethoxazole Swelling,Rash Medium Tissue Adhesive Itching,Rash,Edema Medium 02/07/2023 Trimethoprim Swelling,Rash Medium Medications albuterol HFA (PROVENTIL HFA,VENTOLIN HFA,PROAIR HFA) 90 mcg/actuation inhaler Inhale 2 puffs every 6 (six) hours as needed Active azaTHIOprine (IMURAN) 50 mg tablet Take 1.5 tablets (75 mg total) by mouth daily 3 Active baclofen (LIORESAL) 10 mg tablet Take 1 tablet (10 mg total) by mouth 2 (two) times a day Active cetirizine (ZyrTEC) 10 mg tablet Take 1 tablet (10 mg total) by mouth daily Active ergocalciferol (VITAMIN D) 50,000 unit capsule Take 1 capsule (50,000 Units total) by mouth once a week Tuesdays 0 Active estrogens, conjugated, (Premarin) vaginal cream 1 Active fluticasone propion-salmete roL (ADVAIR DISKUS) 250-50 mcg/dose diskus inhaler 2 puffs daily Active fluticasone propionate (FLONASE) 50 mcg/actuation nasal spray fluticasone propionate 50 mcg/actuation nasal spray,suspension ADMINISTER 2 SPRAYS IN EACH NOSTRIL EVERY DAY 3 Active hydroCHLOROthia zide (HYDRODIURIL) 25 mg tablet Take 1 tablet (25 mg total) by mouth daily 3 Active HYDROcodone-joo taminophen (NORCO) 7.5-325 mg per tablet Take 1 tablet by mouth 2 (two) times a day 3 Active levocetirizine (XYZAL) 5 mg tablet Take 1 tablet (5 mg total) by mouth daily Active loperamide (IMODIUM) 2 mg capsule Take 1 capsule (2 mg total) by mouth as needed Active montelukast (SINGULAIR) 10 mg tablet Take 1 tablet (10 mg total) by mouth daily Active metoprolol XL (TOPROL-XL) 25 mg extended release tablet Take 1 tablet (25 mg total) by mouth daily 3 Active potassium chloride ER 20 mEq CR tablet Take 3 tablets (60 mEq total) by mouth daily Active ondansetron (ZOFRAN) 4 mg tablet Take 1 tablet (4 mg total) by mouth every 8 (eight) hours as needed for nausea or vomiting Active cyanocobalamin, vitamin B-12, 5,000 mcg tablet, sublingual Place 1 tablet under the tongue once a week Active esomeprazole DR (NexIUM) 20 mg capsule Take 1 capsule (20 mg total) by mouth daily before breakfast Active simethicone (MYLICON) 125 mg chewable tablet Take 1 tablet (125 mg total) by mouth every 6 (six) hours as needed for flatulence Active multivitamin capsule Take 1 capsule by mouth daily Active Spiriva with HandiHaler 18 mcg per inhalation capsule Place 1 puff (1 capsule total) into inhaler and inhale daily Active Active Problems Problem Noted Date Diagnosed Date Chest discomfort 04/29/2024 Essential hypertension 04/29/2024 Superficial foreign body of finger without major open wound and without infection 02/07/2023 Bronchial asthma 07/09/2011 Former smoker 07/06/2011 Social History Tobacco Use Types Packs/Day Years Used Date Smoking Tobacco: Former Smokeless Tobacco: Former Quit: 2008 Tobacco Cessation:Counseling Given: Not Answered AUDIT-C Answer Date Recorded Q1: How often do you have a drink containing alcohol? Never 02/12/2023 Q2: How many drinks containi ng alcohol do you have on a typical day when you are drinking? Patient does not drink Q3: How often do you have si x or more drinks on one occasion? 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 Gender Identity Not on file Sexual Orientation Not on file Last Filed Vital Signs Vital Sign Reading Time Taken Comments Blood Pressure 138/83 04/29/2024 2:14 PM CDT Pulse 68 04/29/2024 2:14 PM CDT Temperature 36.9 C (98.4 F) 02/12/2023 6:12 AM CDT Respiratory Rate 18 02/12/2023 6:12 AM CDT Oxygen Saturation 98% 02/12/2023 6:12 AM CDT Inhaled Oxygen Concentration - - Weight 85.3 kg (188 lb) 04/29/2024 2:14 PM CDT Height 167.6 cm (5' 6 ) 04/29/2024 2:14 PM CDT Body Mass Index 30.34 04/29/2024 2:14 PM CDT Plan of Treatment Not on file Medical Devices Implanted Type Area Specialist Managers Device Identifier Shelf Expiration Date Model / Serial / Lot Plate Plate N/A: Cervical-T horacic Spine Description:At C5-C6 Insurance MEDICARE [facility] Care Teams Grape Cutter Relationship Specialty Start Date End Date Miah Manuel MD [address] [place] [id number] PCP - General 09/17/12
--- OUTSIDE RECORDS SUMMARY | 2025-01-13 10:46 | XMS_ITS | Clinical Summary ---
Author Organization [facility] [employer] Address [address] [place] [address] Care Team Providers Care Drywall Foreman Name Role Phone Miah Manuel Primary Care Provider [phone] Source Comments [facility],non-owned Affiliates and Associated Physician Practices is amultiple site organization consisting of ambulatory clinics and hospital sitesin [place], [place], [place] and [place]. This disclosure is being madepursuant to the Care Everywhere program and may not contain all information available regarding this patient. Last updated 18.[facility] Allergies Active Allergy Reactions Criticality Noted Date Comments Amoxicillin-Pot Clavulanate Itching,Swelling Low 02/08/2014 Azithromycin Other 11/30/2019 Cefadroxil Rash Medium 03/21/2017 Cefdinir Rash,Swelling Medium 04/11/2018 Ciprofloxacin Rash Medium 05/04/2016 Erythromycin 01/14/2012 Latex 01/14/2012 Break out in a rash Levofloxacin 01/14/2012 Lidocaine 01/14/2012 Mixture with lidocaine caused itching and throat felt tight and scratchy. (during back injections) Ofloxacin Itching,Rash,Swell ing Medium 02/08/2014 other [Other] Rash Medium 03/21/2017 [place] Penicillins 01/14/2012 Rash and breathing Rifampin Itching 01/15/2012 Sulfamethoxazole W-Trimethoprim 01/14/2012 Sulfamethoxazole W-Trimethoprim Other 11/30/2019 Medications * Be aware that medications may not be up to date on this document. Alwaysverify current medications with the patient. hydrochlorothiazide (HYDRODIURIL) 25 MG tablet Take 1 (one) tablet by mouth once daily Active montelukast (SINGULAIR) 10 MG tablet Take 1 (one) tablet by mouth at bedtime Active albuterol HFA (PROVENTIL;VENTOLIN; PROAIR) 108 (90 BASE) MCG/ACT inhaler Inhale 2 (two) puffs by mouth every 6 hours as needed Active albuterol (PROVENTIL;VENTOLIN) (2.5 MG/3ML) 0.083% nebulizer solution Inhale by mouth 4 times daily as needed. As needed Active Twoif-R-Deqtcnhfsdlp e (BEANO PO) Take by mouth once daily 2-4 daily Active Simethicone (PHAZYME PO)Indications:Crohn 's disease of small intestine without complication (HCC),Vitamin D deficiency,Vitamin B12 deficiency,Medicatio n monitoring encounter,Other specified intestinal malabsorption (HCC) Take 1 tablet by mouth once daily Active Cyanocobalamin 3000 MCG Take 1 tablet by mouth every 7 days Twice weekly. SOMETIMES JUST ONCE WEEKLY Active Multiple Vitamins-Minerals (CENTRUM SILVER PO) Take 1 tablet by mouth once daily Active Calcium Carbonate-Vitamin D (CALTRATE 600+D PO) Take 1 tablet by mouth once daily Active baclofen (LIORESAL) 10 MG tablet as needed Active levocetirizine (Xyzal) 5 MG tablet Take 1 (one) tablet by mouth once daily Active Elastic Bandages & Supports (ABDOMINAL BINDER/ELASTIC MED) MISCIndications:Abdo fauzia wall hernia Use 1 Units once daily Use abdominal binder as needed for hernia support. 1 Each 10/28/19 21 Active HYDROcodone-acetamin ophen (NORCO) 7.5-325 MG tablet TAKE 1 TABLET BY MOUTH TWICE DAILY FOR 30 DAYS 03/28/20 21 Active metoprolol succinate XL 24hr (TOPROL XL) 25 MG tablet Take 1 (one) tablet by mouth once daily 07/29/20 21 Active Nebulizers (VIOS AEROSOL DELIVERY SYSTEM) MISC as directed 05/13/20 21 Active PREMARIN 0.625 MG/GM vaginal cream 06/15/20 21 Active triamcinolone acetonide (KENALOG IN ORABASE) 0.1 % paste Take by mouth once daily 5 g 2 11/06/19 22 Active Additional Information Patient taking differently:OralPRN, For blisters when flaring as needed., Reported on 07/23/2024 fluticasone propionate (Flonase) 50 MCG/ACT nasal spray ADMINISTER 2 SPRAYS IN EACH NOSTRIL EVERY DAY 10/11/19 23 Active esomeprazole (NexIUM) 20 MG capsule Take 1 (one) capsule by mouth once daily Active Spiriva HandiHaler 18 MCG inhalation capsule Inhale 1 (one) capsule by mouth once daily 06/03/20 23 Active potassium chloride ER (K-TAB) 20 MEQ tablet Takes 2-3 times per day depending on the level. Weekly blood draw. 12/16/19 24 Active omeprazole EC (PriLOSEC OTC) 20 MG tablet Take 1 (one) tablet by mouth daily before breakfast Active cholestyramine (Questran) 4 g packetIndications:Bi le salt-induced diarrhea (HCC) Take 1 (one) packet by mouth once daily 60 Each 07/23/20 24 Active azaTHIOprine (Imuran) 50 MG tabletIndications:Cr ohn's disease with complication, unspecified gastrointestinal tract location (HCC) TAKE 1 AND 1/2 TABLETS BY MOUTH EVERY DAY 135 tablet 3 07/23/20 24 Active ondansetron (Zofran) 4 MG tabletIndications:Vi tamin D deficiency,Crohn's disease of small intestine without complication (HCC),Vitamin B12 deficiency,Medicatio n monitoring encounter,Other specified intestinal malabsorption (HCC),Intestinal malabsorption, unspecified type (HCC) Take 1 (one) tablet by mouth every 6 hours 30 tablet 5 07/23/20 24 Active metroNIDAZOLE, topical, (Metrocream) 0.75 % cream Apply to affected area on face BID. 30 day supply. 60 g 2 11/03/19 25 Active Active Problems Problem Noted Date Diagnosed Date Chest discomfort 04/29/2024 Hypokalemia 06/26/2023 Superficial foreign body of finger without major open wound and without infection 02/07/2023 Acute bronchitis 06/29/2022 Allergic rhinitis 06/29/2022 Anxiety 06/29/2022 Chronic obstructive lung disease 06/29/2022 Essential hypertension 06/29/2022 Gastroesophageal reflux disease 06/29/2022 Osteoarthrosis 06/29/2022 Alopecia 05/07/2022 Sensory neuropathy 04/16/2018 Pleurodynia 04/16/2018 Immunosuppressed status 10/25/2017 Myelopathy 10/25/2017 Unsteadiness 10/25/2017 Ventral hernia without obstruction or gangrene 0 03/29/2017 Vitamin D deficiency 08/10/2016 Vitamin B 12 deficiency 08/13/2014 Crohn's disease 10/03/2012 Overview (12/06/2022): Presented with duodenal perforation in 2008. Bronchial asthma 07/09/2011 Former smoker 07/06/2011 Resolved Problems Problem Noted Date Diagnosed Date Resolved Date Otitis externa 06/29/2022 08/10/2022 Upper respiratory infection 06/26/2022 07/13/2022 Encounters Date Type Department Care Team Description 11/03/2024 10:40 AM ASSET PROTECTION LEAD Office Visit [facility] - General Dermatology [address] [place] [address] Bethany Johnson DO Neoplasm of uncertain behavior of skin (Primary Dx); Actinic keratosis 11/03/2024 Travel from Last 3 Months Family History Medical History Relation Name Comments Cancer Father brain Cancer Maternal Grandmother ovarian Cancer Maternal Uncle bone Cancer Paternal Grandfather throat Relation Name Status Comments Father brain Maternal Grandmother ovarian Maternal Uncle bone Paternal Grandfather throat Social History Tobacco Use Types Packs/Day Years [...] AM CDT Legal Sex Female 6:03 AM ASSET PROTECTION LEAD Gender Identity Female 02/25/2022 9:03 AM CDT Sexual Orientation Not on file Last Filed Vital Signs Vital Sign Reading Time Taken Comments Blood Pressure 138/86 07/23/2024 10:35 AM CDT Pulse 67 07/23/2024 10:35 AM CDT Temperature 36.5 C (97.7 F) 07/23/2024 10:35 AM CDT Respiratory Rate 13 07/22/2024 12:15 PM CDT Oxygen Saturation 100% 07/23/2024 10:35 AM CDT Inhaled Oxygen Concentration - - Weight 83.6 kg (184 lb 6.4 oz) 07/23/2024 10:35 AM CDT Height 167.6 cm (5' 6 ) 07/23/2024 10:35 AM CDT Body Mass Index 29.76 07/23/2024 10:35 AM CDT Plan of Treatment Upcoming Encounters Date Type Department Care Team (Late st Contact Info) Description 01/28/2025 10:00 AM CDT Office Visit [facility] - GI [address] [facility] [place] [id number] 07/02/2025 9:30 AM CDT Appointment [facility] [address] [place] [address] Vijaya Coombs MD [address] [place] [address] 11/04/2025 10:40 AM ASSET PROTECTION LEAD Office Visit [facility] - General Dermatology [address], [facility] [address] [place] [id number] Bethany Johnson DO [address] [place] [phone] Health Maintenance Due Date Last Done Comments COLOGUARD (AGES 45-75) - COLON CA SCREENING 1968 CT COLONOGRAPHY - COLON CA SCREENING 1968 FIT - COLON CA SCREENING 1968 FLEX SIG - COLON CA SCREENING 1968 LIPID TESTING 1968 MEDICARE AWV 12 MONTHS 1968 COVID-19 VACCINE (#1) 1973 HIV SCREENING 1983 DTAP/TDAP/TD VACCINES (1 - Tdap) 1987 HEPATITIS B VACCINE (1 of 3 - 19+ 3-dose series) 1987 PNEUMOCOCCAL VACCINE 50+ (1 of 2 - PCV) 1987 ZOSTER VACCINE (1 of 2) 1987 PAP with HPV 1998 DEPRESSION SCREENING 09/23/2024 INFLUENZA VACCINE (Season Ended) 2025 SCREENING FOR DIABETES 06/29/2025 , 05/02/2021, 10/16/2019, Additional history exists MAMMOGRAM 08/29/2025 08/29/2023, 03/2023, 08/29/2023, Additional history exists COLON MONITORING 07/22/2034 07/22/2024, , 07/11/2022, Additional history exists COLONOSCOPY - COLON CA SCREENING 07/22/2034 07/22/2024, 07/22/2024, 07/11/2022, Additional history exists Colorectal Cancer Screening 07/22/2034 HEPATITIS C SCREENING Completed 06/29/2022 HIB VACCINE Aged Out No longer eligi ble based on patient's age to complete this topic HPV VACCINE Aged Out No longer eligi ble based on patient's age to complete this topic MENINGOCOCCAL (Group B) VACCINE SHARED DECISION-MAKING Aged Out No longer eligible based on patient's age to complete this topic MENINGOCOCCAL GROUPS A/C/Y/W VACCINE Aged Out No longer eligible based on patient's age to complete this topic Goals Goal Patient Goal Type Associated Problems Recent Progress Patient-Stated? Author Safety General On track( 023 8:29 AM CDT) No Nneka See RN Note: Expected end date: Ongoing Interventions: Your nurse will assess your risk for falls/injury each visit Use appropriate and safe transfer methods Medication Management General On track( 024 10:54 AM CDT) No Nneka See RN Note: Expected end date: Ongoing Interventions: Take all medications as prescribed Let your doctor know right away about any changes in your medications Procedures Procedure Name Priority Date/Time Associated Diagnosis Comments AR TANGNTL BX SKIN SINGLE LES Routine 11/03/2024 11:24 AM ASSET PROTECTION LEAD Neoplasm of uncertain behavior of skin AR DESTROY PREMALIG LESION, 2-14 Routine 11/03/2024 11:24 AM ASSET PROTECTION LEAD Actinic keratosis AR DESTROY PREMALIG LESION, 1ST LESION Routine 11/03/2024 11:24 AM ASSET PROTECTION LEAD Actinic keratosis DERMATOPATHOLOGY Routine 11/03/2024 11:1 6 AM ASSET PROTECTION LEAD Neoplasm of uncertain behavior of skin ENDOSCOPY, COLON, SCREENING Routine 07/22/2024 10:41 AM CDT HEPATITIS C ANTIBODY Routine 06/29/2022 12:58 PM CDT Crohn's disease of small intestine without complication HEMOGLOBIN A1C Routine 06/29/2022 11:57 AM CDT Neuropathy Myelopathy Imbalance from Last 3 Months or Most Recently Relevant to Health Maintenance Results * AR TANGNTL BX SKIN SINGLE LES (11/03/2024 11:24 AM ASSET PROTECTION LEAD) Narrative Bethany Johnson DO - 11/03/2024 11:24 AM ASSET PROTECTION LEAD Moy Kendall MD 11/03/2024 11:24 AM Risks, benefits and alternatives to shave biopsy were discussed with the patient. Pt understands the possibility for the following: Bleeding, infection, scar (100% chance), the possibility of non-diagnostic reading and the potential need for further testing or treatment, including surgical. Stated clearly the size of the specimen and the need to obtain adequate tissue for the most accurate path reading. Pt accepts all of above, verbal consent was obtained. Location: right axilla Diagnosis: neoplasm of uncertain behavior, r/o skin tag Skin prep: Alcohol Anesthesia: 1% lidocaine with epinephrine Hemostasis: Aluminum chloride Dressing and wound care discussed Moy Kendall MD Bethany Johnson DO PROCEDURE/MINOR SURGICAL ORDERA BLES Final Result * AR DESTROY PREMALIG LESION, 1ST LESION, AR DESTROY PREMALIG LESION, 2-14 (11/03/2024 11:24 AM ASSET PROTECTION LEAD) Bethany Simmons DO - 11/03/2024 11:24 AM ASSET PROTECTION LEAD Moy Kendall MD 11/03/2024 11:24 AM Diagnosis of actinic keratoses and treatment options discussed. Cryotherapy (Liquid Nitrogen) to 3 lesion(s) on the right cheek (x 2), right ear (x 1) for 6-10 seconds. Number of cycles: 1. Wound care reviewed. Moy Kendall MD Bethany Johnson DO PROCEDURE/MINOR SURGICAL ORDERA BLES Final Result * DERMATOPATHOLOGY (11/03/2024 11:16 AM [facility]) Case Report Dermatopathology Report Case: [id number] Authorizing Provider: Bethany Johnson DO Collected: 11/03/2024 11:16 AM Ordering Location: [facility] - Received: 11/04/2024 10:32 AM General Dermatology Pathologist: Juany Duran MD Specimen: Skin, right axilla 12:19 PM [facility] DERMATOPATHOLOGY LABORATORY Final Diagnosis Specimen A. SKIN, right axilla: ACROCHORDON (SOFT FIBROMA, SKIN TAG) (L91.8) (see microscopic description) 12:19 PM [facility] DERMATOPATHOLOGY LABORATORY Clinical History Favor Skin Tag, DDX Includes Nevus 12:19 PM [facility] DERMATOPATHOLOGY LABORATORY Gross Description Specimen A: Received is one formalin filled container labeled with the patient's name and designated right axilla. The specimen consists of a shave biopsy measuring 2x1x1 mm. Jar 0. 12:19 PM [facility] DERMATOPATHOLOGY LABORATORY Microscopic Description Specimen A. SKIN, right axilla: There is a gently folded epidermis surrounding a connective tissue core in which fat and collagen are intermingled. Additional deeper sections were obtained and reviewed. 12:19 PM [facility] DERMATOPATHOLOGY LABORATORY Disclaimer An external and internal positive and negative controls are appropriate for the histochemical, immunohistochemical and immunofluorescence stain(s) in this case (if any), except where stated explicitly. The performance characteristics of the stain(s) cited in this report were developed and its performance characteristic determined by the Dermatopathology Laboratory at [facility], directed by Dr. Dwayne Ahn. These tests need not be, and therefore are not, approved by the [place] Food and Drug Administration. The tests are used for clinical purposes. Billing Codes Specimen Charges Stain Charges 74710 1 5 12:19 PM ASSET PROTECTION LEAD DERMATOPATHOLOGY LABORATORY Embedded Images 12:19 PM ASSET PROTECTION LEAD DERMATOPATHOLOGY LABORATORY Pathology/Cytolo gy TISSUE SPECIMEN FROM SKIN / Unknown 11/03/2024 11:16 AM ASSET PROTECTION LEAD 11/04/2024 10:32 AM ASSET PROTECTION LEAD us Bethany Johnson DO LAB - PATHOLOGY/CYTOLOGY ORDERA BLES Final Result DERMATOPATHOLOGY LABORATORY [facility] - Department of Dermatology [address], [address] [phone] * ENDOSCOPY, COLON, SCREENING (07/22/2024 10:41 AM CDT) Report Endoscopy POC Endoscopy Department Report _ Patient Name: Trinidad Case Procedure Date: 07/22/2024 10:41 AM Date of : 1970 Classification: Outpatient Gender: Female Ethnicity: Not or Race: White _ Providers: Joie Smith MD ([facility]) Referring MD: Miah Manuel (Referring MD) Procedure: Colonoscopy Indications: High risk colon cancer surveillance: Inflammatory bowel disease with known dysplasia (previous visible dysplastic polyp removed completely). Last colonoscopy 2021. Current medication is azathioprine 75 mg daily. Medications: Monitored Anesthesia Care Description of Procedure: Pre-Anesthesia Assessment: - Prior to the procedure, a History and Physical was performed, and patient medications and allergies were reviewed. The patient's tolerance of previous anesthesia was also reviewed. The risks and benefits of the procedure and the sedation options and risks were discussed with the patient. All questions were answered, and informed consent was obtained. Prior Anticoagulants: The patient has taken no anticoagulant or antiplatelet agents. ASA Grade Assessment: III - A patient with severe systemic disease. After reviewing the risks and benefits, the patient was deemed in satisfactory condition to undergo the procedure. After I obtained informed consent, the scope was passed under direct vision. Throughout the procedure, the patient's blood pressure, pulse, and oxygen saturations were monitored continuously. The PCF-[id number] was introduced through the anus and advanced to the terminal ileum. The colonoscopy was performed without difficulty. The patient tolerated the procedure well. The quality of the bowel preparation was adequate. The terminal ileum, the appendiceal orifice and the rectum were photographed. Findings: The perianal and digital rectal examinations were normal. An 8 mm polyp was found in the sigmoid colon. The polyp was sessile. The polyp was removed with a cold snare. Resection and retrieval were complete. There was evidence of a prior end-to-side ileo-colonic anastomosis in the cecum. This was patent and was characterized by edema and small ulceration at one edge of the anastomosis. The anastomosis was traversed. This was biopsied with a cold forceps for histology. The emily-terminal ileum appeared normal. Biopsies were taken with a cold forceps for histology. No other significant abnormalities were identified in a careful examination of the remainder of the colon. Random biopsies were obtained throughout the right and left colon. The retroflexed view of the distal rectum and anal verge was normal and showed no anal or rectal abnormalities. Estimated Blood Loss: Estimated blood loss: none. Complications: No immediate complications. Impression: - One 8 mm polyp in the sigmoid colon, removed with a cold snare. Resected and retrieved. - Patent end-to-side ileo-colonic anastomosis, characterized by edema and single ulceration. Biopsied. - Otherwise normal-appearing colonic mucosa. Biopsied. - The examined portion of the ileum was normal. Biopsied. - The distal rectum and anal verge are normal on retroflexion view. Recommendation: - Resume previous diet. - Continue present medications. - Await pathology results. - Repeat colonoscopy in 2-3 years for surveillance pending pathology report. - Return to GI clinic as previously scheduled. Attending Participation: I personally performed the entire procedure. Procedure Code(s): --- Professional --- 13218, Colonoscopy, flexible; with removal of tumor(s), polyp(s), or other lesion(s) by snare technique 73794, 59, Colonoscopy, flexible; with biopsy, single or multiple Diagnosis Code(s): --- Professional --- K52.3, Indeterminate colitis D12.6, Benign neoplasm of colon, unspecified D12.5, Benign neoplasm of sigmoid colon Z98.0, Intestinal bypass and anastomosis status CPT copyright 2021 [employer]. All rights reserved. The codes documented in this report are preliminary and upon glue specialty supervisor review may be revised to meet current compliance requirements. Joie Smith MD ([facility]) 07/22/2024 11:43:29 AM Note Initiated On: 07/22/2024 10:41 AM Number of Addenda: [address] 07/22/2024 10:4 1 AM CDT us Joie Smith MD GI PROCEDURE ORDERABLES E dited Result - Final [facility] * HEPATITIS C ANTIBODY (06/29/2022 12:58 PM CDT) Hepatitis C Antibody Non-react cora Non-reac tive 06/29/2022 1:58 PM CDT [facility] Comment:Hepatitis C Antibody screen indicates no serologic evidence of past or current infection with Hepatitis C Virus. Patients with unexplained liver disease who are immunocompromised or suspected of having acute Hepatitis C infection may benefit from Nucleic Acid Test (RAMON) for Hepatitis C Viral RNA to confirm Hepatitis C status. Blood BLOOD SPECIMEN / Unknown Lab Venipuncture / Unknown 06/29/2022 12:58 PM CDT 06/29/2022 12:58 PM CDT Carrie Lee MD LAB - CHEMISTRY ORDERABLES Fin al Result [facility] [address] [place] [phone], [facility] [phone] * HEMOGLOBIN A1C (06/29/2022 11:57 AM CDT) Hemoglobin A1c 5.2 <=5.6 % 06/29/2022 2:06 PM CDT [facility] Estimated Average Glucose 103 mg/dL 06/29/2022 2:06 PM CDT [facility] Comment: HbA1c Interpretation: Normal : < 5.7% Pre-diabetes: 5.7-6.4% Diabetes: Equal to or greater than 6.5% Test results diagnostic of diabetes should be repeated for confirmation. Treatment target values recommended by ADA and other clinical organizations should be used to evaluate metabolic control in patients. Reference: [place], Standards of Care in Diabetes -2020 In patients 70 years and older consider HbA1c target range of 7.0-7.5% (Reference: Renard Ramirez, et al. JAMDA. 2012) The Sebia assay for the measurement of HbA1c is a National Glycohemoglobin Standardization Program (NGSP) certified method. Blood BLOOD SPECIMEN / Unknown Lab Venipuncture / Unknown 06/29/2022 11:57 AM CDT 06/29/2022 1:02 PM CDT Aye Larose MD LAB - CHEMISTRY ORDERABLES Final Result Performing Organization Address City/[facility]/ZIP Co de Phone Number [address] [address], [place] [phone] from Last 3 Months or Most Recently Relevant to Health Maintenance Insurance MEDICARE MEDICARE MEDICAID - OUT OF STATE Care Teams Drywall Foreman Relationship Specialty Start Date End Date Miah Manuel [address] [place] [phone] PCP - General 04/11/18
--- OUTSIDE RECORDS SUMMARY | 2025-01-13 10:46 | XMS_ITS | Clinical Summary ---
Author Organization [facility] Address [address] [place] [address] Phone Care Team Providers Care Lacquer Pin Press Operator Name Role Phone Miah Manuel MD Primary Care Provider [phone] Allergies Active Allergy Reactions Criticality Noted Date [...] 02/07/2023 Bronchial asthma 07/09/2011 Former smoker 07/06/2011 Surgical History Surgery Date Site/Laterality Comments LAPAROSCOPY several times HYSTERECTOMY 09/23/1993 - 09/22/1994 N/A LAPAROSCOPIC ENDOMETRIOSIS FULGURATION SPINAL FUSION 09/23/1999 - 09/22/2000 C5-6 COLON SURGERY 09/23/2008 - 09/22/2009 N/A iliostomy and colostomy - colon resection - 18 inches ascending removed REVISION / TAKEDOWN COLOSTOMY 09/23/2008 - 09/22/2009 N/A COLONOSCOPY several - last one 2021 Medical History Medical History Date Comments PONV (postoperative nausea and vomiting) Hypertension Asthma Lung disease Crohn's disease (HCC) GERD (gastroesophageal reflux disease) History of blood transfusion 2008 Depression Sepsis (HCC) 2009 colon burst Social History Tobacco Use Types Packs/Day Years [...] on file Legal Sex Female 10:50 PM HAND WINDER Gender Identity Not on file Sexual Orientation Not on file Obstetrics History Last Filed Vital Signs Vital Sign Reading [...] 04/29/2024 2:14 PM CDT Plan of Treatment Health Maintenance Due Date Last Done Comments Colon Cancer Screening-Colonoscopy 1968 Depression Screening 1968 Hepatitis C Screening 1968 DTaP/Tdap/Td Vaccine (1 - Tdap) 1979 Hepatitis B Screening 1986 Regular Well Visit/Exam 18-64 1986 Pneumococcal vaccine <65 (1 of 2 - PCV) 1987 Zoster Vaccine (1 of 2) 1987 Breast Cancer Screening-Mammogram 08/29/2024 08/29/2023, 08/29/2023, 06/21/2021 Influenza Vaccine (Season Ended) 2025 Medical Devices Implanted Type Area Concrete Finisher Device Identifier Shelf Expiration Date Model / Serial / Lot Plate Plate N/A: Cervical-T horacic Spine Description:At C5-C6 Insurance MEDICARE IDFL Care Teams Lacquer Pin Press Operator Relationship Specialty Start Date End Date Miah Manuel MD [address] [place] [id number] PCP - General 09/17/12
--- OUTSIDE RECORDS SUMMARY | 2025-01-13 10:46 | XMS_ITS | Encounter Summary ---
Author Organization [employer] Address 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
--- OUTSIDE RECORDS SUMMARY | 2025-01-13 10:46 | XMS_ITS | Encounter Summary ---
Author Organization [employer] Address 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
--- OUTSIDE RECORDS SUMMARY | 2025-01-13 10:46 | XMS_ITS | Clinical Summary ---
Author Organization [facility] Address [address] [facility] Attn: Epic Prelude ADT ANTHONY MAHMOOD [address] Care Team Providers Care Human Insights Lead Ads Marketing Name Role Phone Unavailable Primary Care Provider Unavailabl e Social History Tobacco Use Types Packs/Day Years Used Date Smoking Tobacco: Never Assessed Comments Unknown Sex and Gender Information Value Date Recorded Sex Assigned at Not on file Legal Sex Female 5:09 AM CORPORATE COMPLIANCE OFFICER Gender Identity Not on file Sexual Orientation Not on file Plan of Treatment Health Maintenance Due Date Last Done Comments DTAP/TDAP/TD VACCINES (1 - Tdap) 1987 HEPATITIS B VACCINES (1 of 3 - 19+ 3-dose series) 02/22 HPV/Cotest (21-29) 1989 CERVICAL CANCER SCREENING 1998 HPV/Cotest (30-65) 1998 PAP SMEAR 1998 BREAST CANCER SCREENING 2008 COLORECTAL SCREENING 2013 Colorectal Cancer Screening 2013 FIT-DNA Q 3 years 2013 FIT/FOBT Q 1 year 2013 Flex Sig/CT Colonography Q 5 years 2013 ZOSTER VACCINE (1 of 2) 2018 INFLUENZA VACCINE (#1) 2024
[2025-01-13 11:26] LABS: Hematocrit 38.4 % (37.0-47.0); Hemoglobin 13.2 g/dL (12.0-15.0); Mean Corpuscular HGB Conc 34.4 g/dl (32-36); Mean Corpuscular Volume 93.2 fl (80-100); Platelet Count Result 277 k/mm3 (150-375); Red Blood Count 4.12 M/mm3 (4.2-5.4); Red Cell Distribution Width 14.1 % (11.5-14.5); White Blood Count 5.1 K/mm3 (4.5-10.0)
[2025-01-13 11:42] LABS: Alanine Aminotransferase 16 U/L (6-35); Albumin Level 4.2 g/dL (3.5-5.1); Alkaline Phosphatase 77 U/L (38-126); Anion Gap 8 mmol/L (4-12); Aspartate Amino Transferase 24 U/L (14-36); Blood Urea Nitrogen 4 mg/dL (7-17); Carbon Dioxide 30 mmol/L (22-30); Chloride 100 mmol/L (98-107); Estimated Glomerular Filt Rate > 60; Glucose 84 mg/dL (65-110); Potassium 3.1 mmol/L (3.4-5.0); Sodium 138 mmol/L (137-145)
[2025-01-13 13:00] LABS: Vitamin D 25 Hydroxy 22.1 ng/mL
[2025-01-13 13:10] LABS: Iron 108 ug/dL (37-170); Percent Iron Saturation 36 % (20-50)
== END 2025-01-13 09:40 | disposition home or self-care (01) ==
PROVIDERS: PCP Family Medicine; Visit Provider Specialist
DX: N18.30 Chronic kidney disease, stage 3 unspecified (principal); K50.00 Crohn's disease of small intestine without complications; E55.9 Vitamin D deficiency, unspecified; E53.8 Deficiency of other specified B group vitamins
CPT/HCPCS: 36415; 76775; 80053; 82306; 82607; 82728; 83540; 83550; 85027

== ENCOUNTER 2025-02-10 16:12 | Emergency (ER) | payer MEDICARE, MEDICAID, SELFPAY ==
--- OUTSIDE RECORDS SUMMARY | 2025-02-10 16:14 | XMS_ITS | Encounter Summary ---
Author Organization [facility] Address [address] [place] [address] Care Team Providers Care Progress Worker Name Role Phone Miah Manuel Primary Care Provider [phone] Encounter Details Date Type Department Care Team (Late st Contact Info) Description 07/12/2022 Patient Outreach [facility] ENDOSCOPY [address] [place] [id number] Radha Spears, RN Social History Tobacco Use [...] AM CDT Legal Sex Female 6:03 AM CORRUGATOR SUPERVISOR Gender Identity Female 02/25/2022 9:03 AM CDT Sexual Orientation Not on file documented as of this encounter Functional Status * Is person deaf or have serious hearing difficulty? Answer Date of Assessment Author Yes 07/27/2020 2:55 PM CORRUGATOR SUPERVISOR Preston Castillo RN * Is person blind or have serious difficulty seeing? Answer Date of Assessment Author Yes 07/27/2020 2:55 PM CORRUGATOR SUPERVISOR Anna, Ja net, RN * Does person [...] Care Team (Late st Contact Info) Description 07/02/2025 9:30 AM CDT Appointment [facility] [address] [place] [id number] Vijaya Coombs MD [address] [place] [address] 07/15/2025 12:30 PM CDT Office Visit [facility] - GI [address] [facility], [place] [address] Nazario Caldwell MD [address] [facility] 2L DIV [place] [address] 11/04/2025 10:40 AM CORRUGATOR SUPERVISOR Office Visit [facility] - General Dermatology [address], [facility] [address] [place] [address] Bethany Johnson DO [address] [place] [address] documented as of this encounter Goals Goal Patient Goal Type Associated Problems Recent Progress Patient-Stated? Author Safety General On track( 023 8:29 AM CDT) Nneka Zuleta RN Note: Expected end date: Ongoing Interventions: Your nurse will assess your risk for falls/injury each visit Use appropriate and safe transfer methods Medication Management General On track( 025 10:10 AM CDT) Nneka Zuleta, RN Note: Expected end date: Ongoing Interventions: Take all medications as prescribed Let your doctor know right away about any changes in your medications documented as of this encounter Visit Diagnoses Not on filedocumented in this encounter Care Teams Progress Worker Relationship Specialty Start Date End Date Miah Manuel [address] [place] [phone] PCP - General 04/11/18 documented as of this encounter
--- OUTSIDE RECORDS SUMMARY | 2025-02-10 16:14 | XMS_ITS | Encounter Summary ---
Author Organization [facility] Address [address] [place] [address] Care Team Providers Care Washer Carcass Name Role Phone Miah Manuel Primary Care Provider [phone] Reason for Visit * Reason Onset Date Comments Imaging 02/09/2025 Encounter Details Date Type Department Care Team (Late st Contact Info) Description 02/09/2025 Telephone [facility] - [address] [address] Sebastian Phan RN Imaging Social History Tobacco Use Types Packs/Day Years [...] AM CDT Legal Sex Female 6:03 AM SEARCH ENGINE OPTIMIZATION ANALYST Gender Identity Female 02/25/2022 9:03 AM CDT Sexual Orientation Not on file documented as of this encounter Functional Status * Is person deaf or have serious hearing difficulty? Answer Date of Assessment Author Yes 07/22/2024 11:44 AM CDT Silver Hair RN * Is person blind or have serious difficulty seeing? Answer Date of Assessment Author Yes 07/22/2024 11:44 AM CDT Silver Hair RN * Does person have serious difficulty walking/climbing stairs? Answer Date of Assessment Author No 07/22/2024 11:44 AM CDT Silver Hair RN * Does person have difficulty dressing/bathing? Answer Date of Assessment Author No 07/22/2024 11:44 AM CDT Silver Hair RN * Does person have difficulty doing errands alone? Answer Date of Assessment Author No 07/22/2024 11:44 AM CDT Silver Hair RN documented as of this encounter Mental Status * Does person have difficulty concentrating/remembering/making decisions? Answer Entry Date Author No 07/22/2024 11:44 AM CDT Silver Hair RN documented in this encounter Miscellaneous Notes * Telephone Encounter - Sebastian Phan RN - 02/09/2025 10:18 AM CDT Sue from [facility] Prearrival is calling today. Patient is scheduled for a Dexa scan tomorrow, however the diagnosis codes listed on order do not meet medical necessity for order. She needsa different diagnosis code that does meet the CMS guidelines. A list of the acceptable diagnosis codes can be found at CMS.gov. Sue does not that menopause is an acceptable code. She will need thisorder fixed no later than 3 pm today, or patient will have to be rescheduled. The new order will need to be faxed to Radiology at [facility] [phone]. This message was routed to Mago Felipe, JULIA, Joan Vera, JULIA and Dr. Pierce with high priority documented in this encounter Plan of Treatment Upcoming Encounters Date Type Department Care Team (Late st Contact Info) Description 07/02/2025 9:30 AM CDT Appointment [facility] MRI [address] [place] [address] Vijaya Coombs MD [address] [place] [address] 07/15/2025 12:30 PM CDT Office Visit [facility] - GI [address] [facility], [place] [address] Nazario Caldwell MD [address] [place] [address] 11/04/2025 10:40 AM SEARCH ENGINE OPTIMIZATION ANALYST Office Visit [facility] - General Dermatology [address], [address] [place] [address] Bethany Johnson DO [address] [place] [address] documented as of this encounter Goals Goal Patient Goal Type Associated Problems Recent Progress Patient-Stated? Author Safety General On track( 023 8:29 AM CDT) Nneka Zuleta, JULIA Note: Expected end date: Ongoing Interventions: Your nurse will assess your risk for falls/injury each visit Use appropriate and safe transfer methods Medication Management General On track( 025 10:10 AM CDT) Nneka Zuleta, JULIA Note: Expected end date: Ongoing Interventions: Take all medications as prescribed Let your doctor know right away about any changes in your medications documented as of this encounter Visit Diagnoses Not on filedocumented in this encounter Care Teams Washer Carcass Relationship Specialty Start Date End Date Miah Manuel [address] [place] [phone] PCP - General 04/11/18 documented as of this encounter
--- OUTSIDE RECORDS SUMMARY | 2025-02-10 16:14 | XMS_ITS | Encounter Summary ---
Author Organization [facility] Address [address] [address] [place] [address] Care Team Providers Care Auto Body Repair Estimator Name Role Phone Miah Manuel Primary Care Provider [phone] Reason for Referral * Radiology Services (Routine) - Open Specialty Diagnoses / Procedures Referred By Jennifer waters Referred To Contact Diagnoses IBD (inflammatory bowel disease) Ulcerative colitis with complication, unspecified location (HCC) History of anabolic steroid use Post-menopausal Procedures Dexa Bone Density Axial Skeleton Nazario Caldwell MD [address] [place] [address] 2L [place] [address] Phone: tel: fax: Referral ID Status Reason Start Date Expiration Date Visits Re quested Visits Authorized [id number] Open 02/09/2025 02/09/2026 1 1 Encounter Details Date Type Department Care Team (Late st Contact Info) Description 02/09/2025 Orders Only [facility] - GI [address] [facility], [place] [address] Vianey Marx MD [address] [facility] DIV OF GI [place] [place] [address] IBD (inflammatory bowel disease) ; Ulcerative colitis with complication, unspecified location (HCC); History of anabolic steroid use; Post-menopausal Social History Tobacco Use Types Packs/Day Years [...] AM CDT Legal Sex Female 6:03 AM WEIGHT TESTER Gender Identity Female 02/25/2022 9:03 AM CDT [...] of Assessment Author No 07/22/2024 11:44 AM YAMILAT Silver Hair RN * Does person have difficulty dressing/bathing? Answer Date of Assessment Author No 07/22/2024 11:44 AM Silver Narvaez RN * Does person have difficulty doing errands alone? Answer Date of Assessment Author No 07/22/2024 11:44 AM CDT Silver Hair RN documented as of this encounter Mental Status * Does person have difficulty concentrating/remembering/making decisions? Answer Entry Date Author No 07/22/2024 11:44 AM Silver Narvaez RN documented in this encounter Plan of Treatment Upcoming Encounters Date Type Department Care Team (Late st Contact Info) Description 07/02/2025 9:30 AM CDT Appointment [facility] MRI [address] [place] [address] Vijaya Coombs MD [address] [place] [address] 07/15/2025 12:30 PM CDT Office Visit [facility] - GI [address] [facility], [place] [address] Nazario Caldwell MD [address] [place] [address] 11/04/2025 10:40 AM WEIGHT TESTER Office Visit [facility] - General Dermatology [address], [address] [place] [address] Bethany Johnson DO [address] [place] [address] Scheduled Orders Name Type Priority Associated Diagnoses Orde r Schedule Dexa Bone Density Axial Skeleton Imaging Routine IBD (inflammatory bowel disease) Ulcerative colitis with complication, unspecified location (HCC) History of anabolic steroid use Post-menopausal 1 Occurrences starting 02/09/2025 until 02/09/2026 documented as of this encounter Goals Goal Patient Goal Type Associated Problems Recent Progress Patient-Stated? Author Safety General On track( 023 8:29 AM CDT) Nneka Zuleta RN Note: Expected end date: Ongoing Interventions: Your nurse will assess your risk for falls/injury each visit Use appropriate and safe transfer methods Medication Management General On track( 025 10:10 AM CDT) Nneka Zuleta RN Note: Expected end date: Ongoing Interventions: Take all medications as prescribed Let your doctor know right away about any changes in your medications documented as of this encounter Visit Diagnoses Diagnosis IBD (inflammatory bowel disease)- Primary Other and unspecified noninfectious gastroenteritis and colitis Ulcerative colitis with complication, unspecified location (HCC) History of anabolic steroid use Post-menopausal Asymptomatic postmenopausal status (age-related) (natural) documented in this encounter Care Teams Auto Body Repair Estimator Relationship Specialty Start Date End Date Miah Manuel [address] [place] [phone] PCP - General 04/11/18 documented as of this encounter
--- OUTSIDE RECORDS SUMMARY | 2025-02-10 16:15 | XMS_ITS | Encounter Summary ---
Author Organization [employer] Address [address] [place] [address] Care Team Providers Care Broomcorn Seeder Name Role Phone Unavailable Primary Care Provider Unavailabl e Encounter Details Date Type Department Care Team (Late st Contact Info) Description 05/15/2004 Outpatient Historical [facility] L Austin Tripp DO [address] [place] [address] Er, Authorized P NO ADDRESS ON FILE SPRAIN OF NECK (Primary Dx) Social History Tobacco Use Types Packs/Day Years Used Date Smoking Tobacco: Never Assessed Comments Unknown Sex and Gender Information Value Date Recorded Sex Assigned at Not on file Legal Sex Female 5:09 AM ALL ROUND BUTCHER Gender Identity Not on file Sexual Orientation Not on file documented as of this encounter Plan of Treatment Not on file documented as of this encounter Visit Diagnoses Diagnosis Sprain of neck- Primary documented in this encounter
--- OUTSIDE RECORDS SUMMARY | 2025-02-10 16:15 | XMS_ITS | Clinical Summary ---
Author Organization [facility] Address [address] [facility] Attn: Epic Prelude ADT ANTHONY MAHMOOD [address] Care Team Providers Care Ice Crusher Name Role Phone Unavailable Primary Care Provider Unavailabl e Social History Tobacco Use Types Packs/Day Years Used Date Smoking Tobacco: Never Assessed Comments Unknown Sex and Gender Information Value Date Recorded Sex Assigned at Not on file Legal Sex Female 5:09 AM GROUNDS MANAGER Gender Identity Not on file Sexual Orientation [...]
--- OUTSIDE RECORDS SUMMARY | 2025-02-10 16:15 | XMS_ITS | Encounter Summary ---
Author Organization [employer] Address [address] [place] [address] Care Team Providers Care Instructor Business Education Name Role Phone Unavailable Primary Care Provider Unavailabl e Encounter Details Date Type Department Care Team (Late st Contact Info) Description 10/22/2001 Outpatient Historical [place] [address] [place] [address] CERVICALGIA (Primary Dx) Social History Tobacco Use Types Packs/Day Years Used Date Smoking Tobacco: Never Assessed Comments Unknown Sex and Gender Information Value Date Recorded Sex Assigned at Not on file Legal Sex Female 5:09 AM APPLICATIONS TESTER Gender Identity Not on file Sexual Orientation Not on file documented as of this encounter Plan of Treatment Not on file documented as of this encounter Visit Diagnoses Diagnosis Cervicalgia- Primary documented in this encounter
--- OUTSIDE RECORDS SUMMARY | 2025-02-10 16:15 | XMS_ITS | Clinical Summary ---
Author Organization [facility] Address [address] [place] [address] Care Team Providers Care Sheet Metal Duct Installer Name Role Phone Miah Manuel Primary Care Provider [phone] Source Comments [facility],non-owned Affiliates and Associated Physician Practices is amultiple site organization consisting of ambulatory clinics and hospital sitesin [place], [place], [place] and [place]. This disclosure is being madepursuant to the Care Everywhere program and may not contain all information available regarding this patient. Last updated 18.[facility] Allergies Active Allergy Reactions Criticality Noted Date [...] Medium 02/08/2014 other [Other] Rash Medium 03/21/2017 [place] [employer] [place] Penicillins 01/14/2012 Rash and breathing Rifampin [...] times daily as needed. As needed Active Egglt-K-Cempnmhjqnot e (BEANO PO) Take by mouth once [...] blisters when flaring as needed., Reported on 01/28/2025 fluticasone propionate (Flonase) 50 MCG/ACT nasal spray [...] once daily 60 Each 07/23/20 24 Active Additional Information Patient not taking.Reason: Provider adjusted (business integration analyst said to stop taking), Reported on 01/28/2025 azaTHIOprine (Imuran) 50 MG tabletIndications:Cr ohn's disease [...] supply. 60 g 2 11/03/19 25 Active amLODIPine (Norvasc) 2.5 MG tablet Take 1 (one) tablet by mouth once daily Active Active Problems Problem Noted Date Diagnosed Date Osteoarthritis 02/05/2025 Chest discomfort 04/29/2024 Hypokalemia 06/26/2023 Superficial foreign [...] Encounters Date Type Department Care Team Description 02/09/2025 Orders Only [facility] [place] [address] [place] [phone] Vianey Marx MD IBD (inflammatory bowel disease) ; Ulcerative colitis with complication, unspecified location (HCC); History of anabolic steroid use; Post-menopausal 02/09/2025 Telephone [facility] [address] [place] [phone] Sebastian Phan RN Imaging 01/28/2025 10:00 AM CDT Office Visit [facility] [address] [place] [phone] Nazario Caldwell MD Crohn's disease of small intestine without complication (HCC) (Primary Dx); Chronic diarrhea; 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) use of antimetabolite agent; Blurry vision; Osteoarthritis of cervical spine, unspecified spinal osteoarthritis complication status 01/28/2025 Travel from Last 3 Months Family History [...] AM CDT Legal Sex Female 6:03 AM GUEST ROOM INSPECTOR Gender Identity Female 02/25/2022 9:03 AM CDT Sexual Orientation Not on file Last Filed Vital Signs Vital Sign Reading Time Taken Comments Blood Pressure 165/90 01/28/2025 10:12 AM CDT Pulse 68 01/28/2025 10:12 AM CDT Temperature 36.4 C (97.6 F) 01/28/2025 10:12 AM CDT Respiratory Rate 13 07/22/2024 12:15 PM CDT Oxygen Saturation 100% 01/28/2025 10:12 AM CDT Inhaled Oxygen Concentration - - Weight 76 kg (167 lb 9.6 oz) 01/28/2025 10:12 AM CDT Height 167.6 cm (5' 6 ) 01/28/2025 10:12 AM CDT Body Mass Index 27.05 01/28/2025 10:12 AM CDT Plan of Treatment Upcoming Encounters Date Type Department Care Team (Late st Contact Info) Description 07/02/2025 9:30 AM CDT Appointment [facility] [address] [place] [address] Vijaya Coombs MD [address] [place] [phone] 07/15/2025 12:30 PM CDT Office Visit [facility] [address] [facility] [place] [address] Nazario Caldwell MD [address] [place] [address] [place] [address] 11/04/2025 10:40 AM GUEST ROOM INSPECTOR Office Visit [facility] Dermatology [address] [place] [address] Bethany Johnson, DO [address] [place] [address] Health Maintenance Due Date Last Done Comments [...] 10/16/2019, Additional history exists MAMMOGRAM 08/29/2025 08/29/2023, 12/0 03/2023, 08/29/2023, Additional history exists COLON MONITORING [...] track( 023 8:29 AM CDT) No Nneka See, RN Note: Expected end date: Ongoing Interventions: Your nurse will assess your risk for falls/injury each visit Use appropriate and safe transfer methods Medication Management General On track( 025 10:10 AM CDT) No Nneka See, JULIA Note: Expected end date: Ongoing Interventions: Take all medications as prescribed Let your doctor know right away about any changes in your medications Procedures Procedure Name Priority Date/Time Associated Diagnosis Comments ENDOSCOPY, COLON, SCREENING Routine 07/22/2024 10:41 AM CDT HEPATITIS C ANTIBODY Routine 06/29/2022 12:58 PM CDT Crohn's disease of small intestine without complication HEMOGLOBIN A1C Routine 06/29/2022 11:57 AM CDT Neuropathy Myelopathy Imbalance from Last 3 Months or Most Recently Relevant to Health Maintenance Results * ENDOSCOPY, COLON, SCREENING (07/22/2024 10:41 AM CDT) Report Endoscopy POC Endoscopy Department Report _ Patient Name: Trinidad Case Procedure Date: 07/22/2024 10:41 AM Date of : 1970 Classification: Outpatient Gender: Female Ethnicity: Not or Race: White _ Providers: Joie Smith ([facility]), Referring MD: Miah Manuel (Referring MD) Procedure: [...] entire procedure. Procedure Code(s): --- Professional --- 42725, Colonoscopy, flexible; with removal of tumor(s), polyp(s), or other lesion(s) by snare technique 70332, 59, Colonoscopy, flexible; with biopsy, single or multiple Diagnosis Code(s): --- Professional --- K52.3, Indeterminate colitis D12.6, Benign neoplasm of colon, unspecified D12.5, Benign neoplasm of sigmoid colon Z98.0, Intestinal bypass and anastomosis status CPT copyright 2021 [employer]. All rights reserved. The codes documented in this report are preliminary and upon full service vending driver review may be revised to meet current compliance requirements. Joie Smith MD ([facility]) 07/22/2024 11:43:29 AM Note Initiated On: 07/22/2024 10:41 AM Number of Addenda: [id number] [place] [address] PROVATION 07/22/2024 10:4 1 AM CDT us Joie Smith MD GI PROCEDURE ORDERABLES E dited Result - Final [facility] * HEPATITIS C ANTIBODY (06/29/2022 12:58 PM CDT) Hepatitis C Antibody Non-react cora Non-reac tive 06/29/2022 1:58 PM CDT [facility] Comment:Hepatitis C Antibody screen indicates [...] LAB - CHEMISTRY ORDERABLES Fin al Result [facility] [address] [place] [phone], [facility] [phone] * HEMOGLOBIN A1C (06/29/2022 11:57 AM CDT) Hemoglobin A1c 5.2 <=5.6 % 06/29/2022 2:06 PM CDT [facility] Estimated Average Glucose 103 mg/dL 06/29/2022 2:06 PM CDT [facility] Comment: HbA1c Interpretation: Normal : < 5.7% Pre-diabetes: 5.7-6.4% Diabetes: Equal to or greater than 6.5% Test results diagnostic of diabetes should be repeated for confirmation. Treatment target values recommended by ADA and other clinical organizations should be used to evaluate metabolic control in patients. Reference: [place] [employer], Standards of Care in Diabetes -2020 In patients 70 years and older consider HbA1c target range of 7.0-7.5% (Reference: Renard Ramirez et al. JAMDA. 2012) The Sebia assay for the measurement of HbA1c is a National Glycohemoglobin Standardization Program (NGSP) certified method. Blood BLOOD SPECIMEN / Unknown Lab Venipuncture / Unknown 06/29/2022 11:57 AM CDT 06/29/2022 1:02 PM CDT us Aye Larose MD LAB - CHEMISTRY ORDERABLES Final Result [facility] [address] [place] [address], [facility] [phone] from Last 3 Months or Most Recently Relevant to Health Maintenance Insurance MEDICARE MEDICAID - [place] MEDICARE MEDICAID - OUT OF STATE Care Teams Sheet Metal Duct Installer Relationship Specialty Start Date End Date Miah Manuel [address] [place] [phone] PCP - General 04/11/18
--- OUTSIDE RECORDS SUMMARY | 2025-02-10 16:15 | XMS_ITS | Referral Summary ---
Author Organization [facility] Address [address] [place] [address] Phone Care Team Providers Care Power Ballast Machine Operator Name Role Phone Miah Manuel MD Primary Care Provider [phone] Allergies Active Allergy Reactions Criticality Noted Date [...] on file Legal Sex Female 10:50 PM FISH NET STRINGER Gender Identity Not on file Sexual Orientation [...] on file Medical Devices Implanted Type Area Plasterer Rough Device Identifier Shelf Expiration Date Model / Serial / Lot Plate Plate N/A: Cervical-T horacic Spine Description:At C5-C6 Insurance MEDICARE [facility] Care Teams Power Ballast Machine Operator Relationship Specialty Start Date End Date Miah Manuel MD [address] [place] [id number] PCP - General 09/17/12
--- OUTSIDE RECORDS SUMMARY | 2025-02-10 16:15 | XMS_ITS | Clinical Summary ---
Author Organization [facility] Address [address] [place] [address] Phone Care Team Providers Care Head Soft Sugar Operator Name Role Phone Miah Manuel MD [...] CAD W JAIR Routine 08/29/2023 11:00 AM MACHINE II CUTTER Painful breasts from Last 3 Months or Most Recently Relevant to Health Maintenance Results * MIHAELA DIAG BILATERAL DIGITAL W CAD W JAIR (08/29/2023 11:00 AM MACHINE II CUTTER) Anatomical Region Laterality Modality breast Bilateral Mammography 08/29/2023 10:0 7 AM MACHINE II CUTTER Addenda Addendum by Fady Morrison MD on 08/30/2023 4:11 PM MACHINE II CUTTER THIS REPORT HAS BEEN AMENDED. AMENDMENT: 08/30/2023 [...] BILATERAL DIGITAL W CAD W JAIR - [facility] US BREAST LIMITED RYAN BILATERAL DIGITAL DIAGNOSTIC [...] made to exams dated: 02/27/2022, 07/11/2021, 06/21/2021 [facility], and 06/06/2017 [facility]. BREAST TISSUE:There are scattered fibroglandular densities in [...] signed by: Fady Morrison M.D. ll/:08/29/2023 11:31:03 Director Paid Media(s): RT Bowen(R)(M), [facility]; Farrah Duran RDMS, [facility] letter sent: Normal Exam Reading location: [facility] OVERALL STUDY BIRADS: 2 Benign Narrative 08/30/2023 10:31 AM MACHINE II CUTTER - MIHAELA DIAG BILATERAL DIGITAL W CAD [...] made to exams dated: 02/27/2022, 07/11/2021, 06/21/2021 [facility], and 06/06/2017 [facility]. BREAST TISSUE:There are scattered fibroglandular densities in [...] discussed with the patient. Electronically signed by: Fday Morrison M.D. ll/:08/29/2023 11:31:03 Director Paid Media(s): RT Bowen(R)(M), [facility]; Farrah Duran RDMS, [facility] letter sent: Normal Exam Reading location: [facility] OVERALL STUDY BIRADS: 2 Benign Procedure Note [...] made to exams dated: 02/27/2022, 07/11/2021, 06/21/2021 [facility], and 06/06/2017 [facility]. BREAST TISSUE:There are scattered fibroglandular densities in [...] signed by: Fady Morrison M.D. ll/:08/29/2023 11:31:03 Director Paid Media(s): RT Bowen(R)(M), [facility]; Farrah Duran RDMS, [facility] letter sent: Normal Exam Reading location: [facility] OVERALL STUDY BIRADS: 2 Benign Fredy Rutherford MD [facility] MAMMO ORDERABLES Edite d Result - Final from Last 3 Months or Most Recently Relevant to Health Maintenance Insurance MEDICARE [place]ID [place] Care Teams Head Soft Sugar Operator Relationship Specialty Start Date End Date Miah Manuel MD [address] [place] [id number] PCP - General Family Medicine 04/30/18
--- OUTSIDE RECORDS SUMMARY | 2025-02-10 16:15 | XMS_ITS | Clinical Summary ---
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
--- OUTSIDE RECORDS SUMMARY | 2025-02-10 16:15 | XMS_ITS | Data Portability ---
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 Plan of Treatment Reminders Order Date Submit Date Provider Last Modified By Organization Details Last Modified Time Details Appointments ANY 30 2024 10:00A Ifrah Zheng MD Not available Not available Not available ANY 15 2024 09:15A Ifrah Manuel MD Not available Not available Not available Lab None record ed. Referral podiat rist referr al 2024 025 sukhjindernightmanuel richardson [facility], [address], [place], [address], 10/19/2024 15:23:54 Procedures None record ed. Surgeries None record ed. Imaging XR, cervic al spine, 2 or 3 view 2024 025 [facility] [address] [place], [address], 01/11/2025 07:52:10 XR, foot, 3 or more view 2024 025 [facility]), [address] [place], [address], 10/09/2024 08:59:30 Medication Orders amlodi pine 2.5 mg tablet 2024 025 [id number], [address] [place], [address], 01/08/2025 12:20:58 hydroc odone 7.5 mg-joo tamino phen 325 mg tablet 2024 025 [id number], [address] [place], [address], 01/08/2025 12:20:59 albute rol sulfat e HFA 90 mcg/ac tuatio n aeroso l inhale r 2024 025 [facility] #[id number], [address] [place], [address], 12/08/2024 16:09:03 hydroc odone 7.5 mg-joo tamino phen 325 mg tablet 2024 025 [id number] [address] [place], [address], 12/08/2024 16:16:17 cephal exin 500 mg capsul e 2024 025 [id number] [address] [place], [address], 10/08/2024 16:32:11 Patient TargetsNo targets recorded. Patient Instructions Encounter Date Encounter Id Patient Instructions Last Modified By Organization Details Last Modified Time 10/08/2024 [id number] allergies: care instructions Not available 10/08/2024 16:32:09 A healthy lifestyle: care instructions Not available 10/08/2024 16:32:09 Acute Sinusitis: Care Instructions Not available 10/08/2024 16:32:09 chronic obstructive pulmonary disease (COPD): care instructions Not available 10/08/2024 16:32:09 learning about copd and how to prevent lung infections Not available 10/08/2024 16:32:09 crohn's disease: care instructions Not available 10/08/2024 16:32:09 hypokalemia: car e instructions Not available 10/08/2024 16:32:09 12/08/2024 [id number] A healthy lifestyle: care instructions Not available 12/08/2024 16:08:15 advance care planning: care instructions Not available 12/08/2024 16:08:15 preventing falls : care instructions Not available 12/08/2024 16:08:15 Quitting Tobacco : Care Instructions Not available 12/08/2024 16:08:15 Medicare Wellnes s Preventive Checklist Not available 12/08/2024 16:08:15 eating healthy foods: care instructions Not available 12/08/2024 16:08:15 AD8 Dementia Screening Interview Not available 12/08/2024 16:08:15 chronic obstructive pulmonary disease (COPD): care instructions Not available 12/08/2024 16:08:15 learning about copd and how to prevent lung infections Not available 12/08/2024 16:08:15 leg and ankle edema: care instructions Not available 12/08/2024 16:08:15 learning about high blood pressure Not available 12/08/2024 16:09:01 hypokalemia: car e instructions Not available 12/08/2024 16:08:15 01/08/2025 [id number] neck pain: care instructions Not available 01/08/2025 12:20:59 mammogram: about this test Not available 01/08/2025 12:22:36 A healthy lifestyle: care instructions Not available 01/08/2025 12:20:58 learning about high blood pressure Not available 01/08/2025 12:20:58 crohn's disease: care instructions Not available 01/08/2025 12:20:58 hypokalemia: car e instructions Not available 01/08/2025 12:20:58 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 Referring Physician: Miah Manuel, Family Medicine, Encounter Date: 10/08/2024 Results Created Date Observation Date Name Description Value Unit Range Abnormal Flag Note LastModifiedBy Organization Detail LastModifiedTime 11/03/19 25 11/05/2024 Skin Patho logy biops y repor t pathology report.secti on heading Dermat opatho logy Report Case: [id number] Author maria m Alex er: Bethany Johnson DO Collec indra: 2024 11:16 AM Orderi ng Locati on: [facility] - Receiv ed: 2024 10:32 AM Genera l Dermat ology Pathol ogist: Roseann Duran MD Specim en: Skin, right axilla Case Repor t [facility] topat holog y Repor t Case: [id number] Autho cristi peterson Provi earnestine: walterConrad DO Colle cted: 11/03 11:16 AM Order ing Locat ion: [facility] - Recei janessa: 11/04 10:32 AM Gener al [facility] tolog y Patho logis t: Natty Duran MD Speci men: Skin, right axill a 11/05 12:19 PM CAFETERIA [facility] Not Available Not Available 12/08/2024 14:57:44 11/03/19 25 11/05/2024 Skin Patho logy biops y repor t pathology report final diagnosis narrative Specim en A. SKIN, right axilla : ACROCH ORDON (SOFT FIBROM A, SKIN TAG) (L91.8 ) (see micros copic descri ption) Final Diagn osis Speci men A. SKIN, right axill a: ACROC HORDO N (SOFT FIBRO MA, SKIN TAG) (L91. 8) (see micro scopi c descr iptio n) 11/05 12:19 PM CAFETERIA [facility] Elect allegra miller d by Natty Duran MD on 2024 at 12:19 PM Not Available Not Available 12/08/2024 14:57:44 11/03/19 25 11/05/2024 Skin Patho logy biops y repor t pathology report relevant history narrative Favor Skin Tag, DDX Includ es Nevus Clini omega Histo ry Favor Skin Tag, DDX Inclu pardeep Nevus 11/05 12:19 PM CAFETERIA [facility] Not Available Not Available 12/08/2024 14:57:44 11/03/19 25 11/05/2024 Skin Patho logy biops y repor t pathology report gross observation narrative Specim en A: Receiv ed is one formal in filled contai ner labele d with the patien t's name and design ated right axilla . The specim en consis ts of a shave biopsy measur ing 2x1x1 mm. Jar 0. Gross Descr iptio n Speci men A: Recei janessa is one forma manuel fille d conta iner label ed with the patie nt's name and desig nated right axill a. The speci men consi sts of a shave biops y measu ring 2x1x1 mm. Jar 0. 11/05 12:19 PM CAFETERIA [facility] Not Available Not Available 12/08/2024 14:57:44 11/03/19 25 11/05/2024 Skin Patho logy biops y repor t pathology report microscopic observation narrative other stain Specim en A. SKIN, right axilla : There is a gently folded epider mis surrou nding a connec tive tissue core in which fat and collag en are interm ingled . Additi onal deeper sectio ns were obtain ed and review ed. Micro scopi c Descr iptio n Speci men A. SKIN, right axill a: There is a gentl y folde d epide rmis surro undin g a conne ctive tissu e core in which fat and colla gen are inter mingl ed. Addit ional deepe r secti ons were obtai rose and revie wed. 11/05 12:19 PM CAFETERIA [facility] Not Available Not Available 12/08/2024 14:57:44 11/03/19 25 11/05/2024 Skin Patho logy biops y repor t service comment An senior financial accountant al and production internship al positi ve and negati ve contro ls are approp riate for the histoc hemica l, immuno histoc hemica l and immuno fluore scence stain( s) in this case (if any), except where stated explic itly. The perfor vincent charac terist ics of the stain( s) cited in this report were develo ped and its perfor vincent charac terist ic determ ined by the Dermat opatho lognora mar at [facility], direct ed by Dr. Dwayne Ahn . These tests need not be, and theref ore are not, approv ed by the [place] Food and Drug Admini strati on. The tests are used for clinic al purpos es. Billin g Codes Specim en Charge s Stain Charge s 90099 1 Discl aimer An exter nal and inter nal posit cora and negat cora contr ols are appro priat e for the histo chemi omega, immun ohist ochem ical and immun ofluo resce nce stain (s) in this case (if any), excep t where state d expli citly . The perfo rmanc e ann marie cteri stics of the stain (s) cited in this repor t were devel oped and its perfo rmanc e ann marie cteri stic deter mined by the [facility] , direc indra by Dr. Dwayne Hinson. These tests need not be, and there fore are not, appro janessa by the [facility] Food and Drug Admin istra tion. The tests are used for clini omega purpo ses. Saroj ng Codes Speci [place] Charg [place] [id number] 1 11/05 12:19 PM CAFETERIA OPERATOR [facility]AT [facility] Not Available Not Available 12/08/2024 14:57:44 11/03/19 25 11/05/2024 Skin Patho logy biops y repor t embedded images Embed ded Image s 11/05 12:19 PM CAFETERIA OPERATOR [facility] Not Available Not Available 12/08/2024 14:57:44 10/09/19 25 10/08/2024 XR, foot, 3 or more view No observ ation record ed. [facility] Scheduling [address], [place], [address], 10/12/2024 13:53:21 01/12/2001/08/2025 XR, cervi omega spine , 2 or 3 view No observ ation record ed. [facility] Scheduling [address], [place], [address], 01/11/2025 08:32:09 01/14/20 25 01/13/2025 US, renal No observ ation record ed. [facility] [address], [place], [address], 01/18/2025 12:00:09 Result Notes None recorded. Problems Name Problem SNOMED Code Status Onset Date Resolution Date Notes Provider Name and Address Organization Details Recorded Time Essential hypertension 18970681 Active Miah Manuel MD Attn: Accounting, [address] [place], [address], [place] [facility] 11:17:31 Chronic obstructive pulmonary disease 83489127 Active Little Hernandez LPN null, [place] [facility] 17:46:53 Crohn's disease 44815557 Active Miah Manuel MD Attn: Accounting, [address] [place], [address], [place] [facility] 11:17:31 Allergic rhinitis 26385091 Gregor Manuel MD Attn: Accounting, [address] [place], [address], [place] [facility] 11:17:31 Gastroesopha geal reflux disease 178938282 Gregor Manuel MD Attn: Accounting, [address] [place], [address], [place] [facility] 11:17:31 Osteoarthrit is 065612143 Gregor Manuel MD Attn: Accounting, [address] [place], [address], [place] [facility] 11:17:31 Low back pain 001309392 Active 2021 Sarahy Mckeon MA [place], [place] [facility] 13:16:02 Thoracic back pain 135503990 Active 2021 Sarahy Mckeon [place] [facility] 10:23:27 Alopecia 53525280 Active 2021 Sarahy Mcke[place] [facility] 10:23:39 Upper respiratory infection 62823325 Active 2021 Miah Manuel MD Attn: Accounting, [address] [place], [address], [place] [facility] 16:19:45 Hypokalemia 07477924 Active 2022 Sarahy Mckeon [place] [facility] 10:11:47 Acute bronchitis 37245642 Active Miah Manuel MD Attn: Accounting, [address] [place], [address], [place] [facility] 11:49:17 Otitis externa 8582867 Active Miah Manuel MD Attn: Accounting, [address] [place], [address], [place] [facility] 11:49:17 Anxiety 49645764 Active Miah Manuel MD Attn: Accounting, [address] [place], [address], [place] [facility] 11:17:31 Problem Notes None recorded. Procedures Surgical History None recorded. Imaging Results Imaging Date Name Status LastModified by [facility] Details LastModified Time 10/08/2024 XR, foot, 3 or more view completed [facility] Scheduling [address] [facility], [place], [address], 10/12/2024 13:53:21 01/08/2025 XR, cervical spine, 2 or 3 view completed [facility] Scheduling [address] [place], [address], 01/11/2025 08:32:09 01/13/2025 US[facility] renal [facility] [address] [facility] [address], [place], [address], 01/18/2025 12:00:09 Procedure Notes None recorded. Medical Equipment None Reported. Allergies Allergen ID Allergen Name Allergen Category Reaction Reaction Severity Criticality Documentation Date Start Date Code Code System Note Provider Name and Address Organization Details Recorded Time 17970928 Bactrim medicatio n Not available Not available Not available 08/18/2024 63588 9 RxNorm Monica Van LPN [place], [place] [facility] 12:41:40 024690 latex environme nt,medica tion rash Not available high 08/18/2024 78459 91 RxNorm ST[place], [place] [facility] 15:34:22 927526 amoxicill in medicatio n rash swelling Not available Not available high 12/08/2024 723 RxNorm [place] [facility] 15:33:56 453361 amoxicill in / clavulana te medicatio n itching swelling Not available Not available low 12/08/20242013 91875 RxNorm [place] [facility] 15:34:02 874606 cefadroxi l medicatio n rash Not available high 12/08/20242016 2177 RxNorm [place] [facility] 15:34:04 985487 cefdinir medicatio n rash swelling Not available Not available high 12/08/20242017 61861 RxNorm [place] [facility] 15:34:06 574978 ciproflox acin medicatio n rash Not available high 12/08/20242015 2551 RxNorm [place] [facility] 15:34:08 908145 erythromy handy medicatio n rash swelling Not available Not available high 12/08/2024 4053 RxNorm [place] [facility] 11:31:18 007699 levofloxa handy medicatio n rash swelling Not available Not available high 12/08/2024 76046 RxNorm [place] [facility] 11:31:32 576389 lidocaine medicatio n swelling Not available high 12/08/2024 6387 RxNorm [place] [facility] 11:31:35 139910 ofloxacin medicatio n itching rash swelling Not available Not available Not available high 12/08/20242013 7623 RxNorm [place] [facility] 15:34:38 177361 rifampin medicatio n rash Not available high 12/08/2024 9384 RxNorm [place] [facility] 11:31:39 757756 sulfameth oxazole / trimethop rim medicatio n Not available Not available Not available 12/08/20242019 79013 RxNorm unrec ogniz ed react ion (text : Other , code: [id number]) (from [facility]) [place] [facility] 15:35:02 590203 trimethop rim medicatio n rash swelling Not available Not available high 12/08/2024 93989 RxNorm [place] [facility] 15:35:07 568704 sulfameth oxazole medicatio n rash swelling Not available Not available high 01/08/2025 49731 RxNorm [place] [facility] 11:31:43 46107 Product containin g penicilli n (product) medicatio n rash swelling Not available Not available Not available 11/03/20142017 11426 8001 SNOMED Braden Burris ST[place] null, [place] - [facility] 5 15:34:45 21002 azithromy handy medicatio n Not available Not available Not available 11/03/2014 25490 RxNorm Samina Alvarado MA null, [place] [facility] 12:37:00 16352 sulfameth oxazole / trimethop rim medicatio n Not available Not available Not available 11/03/2014 42926 RxNorm STALIN [place], [place] [facility] 12:37:00 25806 Levaquin medicatio n Not available Not available Not available 11/03/2014 84321 2 RxNorm STAL[place], [place] [facility] 12:37:00 Medications Name Sig Start Date Stop Date Status Note LastModified by Organization Details LastModified Time cyclobenza ann marie 10 mg tablet Take 1 tablet twice a day by oral route as directed for 90 days. 09/30 completed Not Available Not Available Not Available venlafaxin e ER 37.5 mg capsule,ex tended release 24 hr TAKE 1 CAPSULE BY MOUTH EVERY DAY active Not Available Not Available No t Available prednisone 10 mg tablet active Not Available Not Available Not Available rabeprazol e 20 mg tablet,del ayed release Take 1 tablet every day by oral route for 90 days. 2021 active Not Available Not Available Not Avai lable cefuroxime axetil 250 mg tablet TAKE 1 TABLET BY MOUTH EVERY 12 HOURS FOR 10 DAYS 09/30 completed Not Available Not Available Not Available albuterol sulfate 2.5 mg/3 mL (0.083 %) solution for nebulizati on INHALE 1 VIAL VIA NEBULIZER THREE TIMES DAILY NEEDED active Not Available Not Available No t Available loperamide 2 mg capsule active Not Available Not Available Not Available cetirizine 10 mg tablet Take 1 tablet every day by oral route for 90 days. 2023 active Not Available Not Available Not Avai lable benzonatat e 200 mg capsule 200 MG ORALLY THREE TIMES A DAY NEEDED FOR COUGH 09/30 completed Not Available Not Available Not Available cephalexin 250 mg capsule Take 1 capsule twice a day by oral route for 10 days. 09/30 completed Not Available Not Available Not Available ondansetro n HCl 4 mg tablet TAKE 1 TABLET BY MOUTH EVERY 6 HOURS active Not Available Not Available No t Available prednisone 20 mg tablet TAKE 2 TABLETS BY MOUTH EVERY DAY FOR 5 DAYS active Not Available Not Available No t Available Debrox 6.5 % ear drops INSTILL 5 DROPS INTO AFFECTED EAR(S) BY OTIC ROUTE 2 TIMES PER DAY 09/30 completed Not Available Not Available Not Available permethrin 5 % topical cream APPLY (THOROUGH LY MASSAGE INTO SKIN FROM HEAD TO SOLES OF FEET) BY TOPICAL ROUTE ONCE LEAVE ON FOR 8-14 HR, THEN REMOVE BY THOROUGH WASHING active Not Available Not Available No t Available diphenoxyl ate-atropi ne 2.5 mg-0.025 mg tablet 09/30 completed Not Available Not Available Not Available amlodipine 2.5 mg tablet TAKE 1 TABLET BY MOUTH EVERY DAY FOR 30 DAYS active Not Available Not Available No t Available metronidaz ole 500 mg tablet active Not Available Not Available Not Available azathiopri ne 50 mg tablet TAKE 1 AND 1/2 TABLETS BY MOUTH EVERY DAY active Not Available Not Available No t Available pantoprazo le 20 mg tablet,del ayed release Take one tablet by mouth daily 2016 active Not Available Not Available Not Avai lable meloxicam 7.5 mg tablet active Not Available Not Available Not Available Tessalon Perles 100 mg capsule Take 1 capsule 3 times a day by oral route for 10 days. 2016 active Not Available Not Available Not Avai lable alprazolam 0.25 mg tablet Take 1 tablet twice a day by oral route for 2 days. 09/30 completed Not Available Not Available Not Available potassium chloride ER 20 mEq tablet,ext ended release(pa rt/cryst) TAKE 1 TABLET BY MOUTH EVERY DAY active Not Available Not Available No t Available triamcinol one acetonide 0.1 % dental paste APPLY IN MOUTH ONCE DAILY active Not Available Not Available No t Available baclofen 10 mg tablet TAKE 1 TABLET TWICE A DAY BY ORAL ROUTE FOR 90 DAYS. active Not Available Not Available No t Available hydrocodon e 7.5 mg-acetami nophen 325 mg tablet TAKE 1 TABLET BY MOUTH TWICE A DAY active Not Available Not Available No t Available cephalexin 500 mg capsule TAKE 1 CAPSULE BY MOUTH TWICE A DAY FOR 21 DAYS active Not Available Not Available No t Available pantoprazo le 40 mg tablet,del ayed release Take 1 tablet every day by oral route for 90 days. 2020 active Not Available Not Available Not Avai lable nortriptyl ine 10 mg capsule active Not Available Not Available Not Available prednisone 50 mg tablet TAKE 1 TABLET BY MOUTH EVERY DAY FOR 4 DAYS active Not Available Not Available No t Available metronidaz ole 0.75 % topical cream APPLY TO THE AFFECTED AREA ON FACE TWICE DAILY active Not Available Not Available No t Available Advair Diskus 250 mcg-50 mcg/dose powder for inhalation Inhale 1 puff twice a day by inhalatio n route for 30 days. 08/18 completed Not Available Not Available Not Available bupropion HCl 75 mg tablet 09/30 completed Not Available Not Available Not Available gabapentin 300 mg capsule Take 1 capsule 3 times a day by oral route for 30 days. 2023 active Not Available Not Available Not Avai lable cephalexin 500 mg tablet Take 1 tablet 3 times a day by oral route for 7 days. 2021 active Not Available Not Available Not Avai lable montelukas t 10 mg tablet TAKE 1 TABLET BY MOUTH EVERY DAY active Not Available Not Available No t Available codeine 10 mg-guaifen esin 100 mg/5 mL oral liquid TAKE 5 ML ORALLY EVERY 6 HOURS NEEDED FOR COUGH active Not Available Not Available No t Available lisinopril 5 mg tablet TAKE ONE TABLET BY MOUTH DAILY 08/18 completed pt has not taken this med for many yrs. Not Available Not Available Not Available hydrochlor othiazide 25 mg tablet TAKE 1 TABLET BY MOUTH EVERY DAY 2024 active Not Available Not Available Not Avai lable metoprolol succinate ER 25 mg tablet,ext ended release 24 hr TAKE 1 TABLET BY MOUTH EVERY DAY active Not Available Not Available No t Available ergocalcif douglas (vitamin D2) 1,250 mcg (50,000 unit) capsule TAKE 1 CAPSULE BY MOUTH ONE TIME PER WEEK FOR 90 DAYS active Not Available Not Available No t Available azelastine 137 mcg (0.1 %) nasal spray [place] 2 sprays twice a day by intranasa l route for 30 days. 2023 active Not Available Not Available Not Avai lable budesonide DR - ER 3 mg capsule,de layed,exte nded release 09/30 completed Not Available Not Available Not Available cefuroxime axetil 500 mg tablet 09/30 completed Not Available Not Available Not Available methylpred nisolone 4 mg tablets in a dose pack active Not Available Not Available Not Available albuterol sulfate HFA 90 mcg/actuat ion aerosol inhaler INHALE 2 PUFFS EVERY 4 HOURS BY INHALATIO N ROUTE FOR 90 DAYS. active Not Available Not Available No t Available cefdinir 300 mg capsule 09/30 completed Not Available Not Available Not Available fluticason e propionate 50 mcg/actuat ion nasal spray,susp ension ADMINISTE R 2 SPRAYS IN EACH NOSTRIL EVERY DAY active Not Available Not Available No t Available loratadine 10 mg tablet Take 1 tablet every day by oral route for 90 days. 2015 active Not Available Not Available Not Avai lable diazepam 5 mg tablet 09/30 completed Not Available Not Available Not Available Benadryl Allergy 25 mg tablet Take 2 tablets every day by oral route at bedtime for 90 days. 09/30 completed Not Available Not Available Not Available Premarin 0.625 mg/gram vaginal cream APPLY 1/2 GRAM THREE TIMES WEEKLY DIRECTED active Not Available Not Available No t Available cholestyra mine (with sugar) 4 gram powder for susp in a packet MIX AND DRINK 1 PACKET BY MOUTH DAILY active Not Available Not Available No t Available Spiriva with HandiHaler 18 mcg and inhalation capsules Inhale 1 capsule every day by inhalatio n route for 90 days. active Not Available Not Available No t Available duloxetine 20 mg capsule,de layed release 09/30 completed Not Available Not Available Not Available Symbicort 160 mcg-4.5 mcg/actuat ion HFA aerosol inhaler Inhale 2 puffs twice a day by inhalatio n route for 90 days. 2020 active Not Available Not Available Not Avai lable peg 3350-elect rolytes 236 gram-22.74 gram-6.74 gram-5.86 gram solution active Not Available Not Available Not Available Vios Aerosol Delivery System TAKE DIRECTED active Not Available Not Available No t Available Adult Robitussin Peak Cold DM 10 mg-100 mg/5 mL oral liquid Take 10 mL 3 times a day by oral route for 7 days. 09/30 completed Not Available Not Available Not Available potassium chloride ER 20 mEq tablet,ext ended release TAKE 1 TABLET TWICE A DAY BY ORAL ROUTE FOR 90 DAYS. active Not Available Not Available No t Available Incruse Ellipta 62.5 mcg/actuat ion powder for inhalation Inhale 1 puff every day by inhalatio n route for 90 days. 08/18 completed Not Available Not Available Not Available Vitals Date Recorded Body height Body mass index (BMI) Body weight Oxygen saturation Oxygen saturation in Arterial blood by Pulse oximetry Heart rate Respiratory rate Body temperature Systolic blood pressure Diastolic blood pressure Provider Name and Address Organization Details Last Updated DateTime 5 167.64 cm 29.9 kg/m2 48997.5 9 g 97 % 97 % 67 /min 18 /min 97.2 [degF] 145 mm[Hg] 86 mm[Hg] Braden Burris MA [facility] 5 15:54:58 Date Recorded Body height Body mass index (BMI) Body weight Heart rate Body temperature Systolic blood pressure Diastolic blood pressure Provider Name and Address Organization Details Last Updated DateTime 5 167.64 cm 28.7 kg/m2 99044.0 8 g 94 /min 98 [degF] 154 mm[Hg] 90 mm[Hg] Willy Stapleton MA [facility] 5 11:51:01 Date Recorded Body height Body mass index (BMI) Body weight Oxygen saturation Oxygen saturation in Arterial blood by Pulse oximetry Heart rate Respiratory rate Body temperature Systolic blood pressure Diastolic blood pressure Provider Name and Address Organization Details Last Updated DateTime 5 167.64 cm 27.3 kg/m2 33680.2 1 g 100 % 100 % 74 /min 18 /min 97.9 [degF] 127 mm[Hg] 82 mm[Hg] Braden Burris MA [facility] 5 15:33:35 Date Recorded Body height Body mass index (BMI) Body weight Oxygen saturation Oxygen saturation in Arterial blood by Pulse oximetry Heart rate Respiratory rate Body temperature Systolic blood pressure Diastolic blood pressure Provider Name and Address Organization Details Last Updated DateTime 167.64 cm 27.1 kg/m2 19081.5 2 g 98 % 98 % 76 /min 18 /min 97.7 [degF] 165 mm[Hg] 94 mm[Hg] Braden Burris MA [place] - [facility] 11:30:57 Social History Question Answer Notes LastModified by [employer] Details LastModified Time Tobacco Smoking Status Never Smoker Samina Alvarado [place] null, [place] - [place] 11/03/2014 12:37:00 Do You Have An Advance Directive? No Information n ot available 10/23/2024 What Is Your Level Of Caffeine Consumption? Occasional [email or web address] Information not available 11/03/2014 In The 14 Days Before Symptom Onset, Have You Had Close Contact With A Laboratory-confirm ed COVID-19 While That Case Was Ill? No Information n ot available 08/18/2024 In The 14 Days Before Symptom Onset, Have You Had Close Contact With A Person Who Is Under Investigation For COVID-19 While That Person Was Ill? No Information not available 08/18/2024 Have You Been To An Area Known To Be High Risk For COVID-19? No Information not available 08/18/2024 Do You Have A Medical Power Of Road Crew Member? No Information not available 10/23/2024 What Was The Date Of Your Most Recent Tobacco Screening? 01/08/2025 [email or web address] Information not available 01/08/2025 What Is Your Relationship Status? Information not available 10/23/2024 How Much Tobacco Do You Smoke? No [email or web address] Information not available 04/30/2017 Has Tobacco Cessation Counseling Been Provided? No [email or web address] Information not available 12/12/2022 Sex: Female Functional Status Question Answer Note LastModified by [employer] Details LastModified Time Do you use any illicit or recreational drugs? No Information not available 10/23/2024 Do you or have you ever used any other forms of tobacco or nicotine? No Information not available 10/23/2024 What is your level of alcohol consumption? None [email or web address] Information not available 11/03/2014 Mental Status None recorded. Family History Nothing Reported. Medical History Condition Response Coronary Artery Disease N Other Y High Blood Pressure Y Atrial Fibrillation N Kidney or Bladder Problems N Thyroid Problems N GI Problems N Depression N COPD Y Blood Clots N Skin Problems N Anemia N Heart Attack ([place]) N Anxiety Disorder N Diabetes N Muscle, Joint, or Bone Problems Y Seizures/Epilepsy N Acid Reflux (GERD) Y Cancer N Stroke N Asthma Y Allergies Y High Cholesterol N Hepatitis N Liver Disease N Headaches N Heart Failure N Osteoporosis N Gynecological HistoryNo gynecological history recorded. Obstetrics History GPAL:G 0 P 0 0 0 0 Past Encounters Encounter ID Performer Location Encounter Start Date Encounter Closed Date Diagnosis/Indication Diagnosis SNOMED-CT Code Diagnosis ICD10 Code Diagnosis Note [id number] Miah Manuel MD [address] [address] 11/03/2014 11:32:48 11/08/2014 11:20:53 Essential hypertension 52786907 Chronic ob structive pulmonary disease 32798150 meds and follow up Crohn's disease 10569392 meds and see GI Allergic rhinitis 28196483 nose spray and follow up Gastroesop hageal reflux disease 416299983 meds and see GI Osteoarthritis 449012938 meds and PT... also pain meds help with crohns [id number] Miah Manuel MD [address] [address] 01/31/2015 11:03:53 02/03/2015 17:16:54 Essential hypertension 50518071 Gastroesop hageal reflux disease 452512374 meds and see GI Chronic ob structive pulmonary disease 14780475 meds and follow up Crohn's disease 53917133 meds and see GI, and she takes aciphex/pr otonix combo per his recommenda tion... Allergic rhinitis 37332246 nose spray and follow up Osteoarthritis 149417872 meds and PT... also pain meds help with crohns [id number] Miah Manuel MD [address] [address] 05/02/2015 11:10:48 05/02/2015 20:45:03 Essential hypertension 99652260 meds and follow up... Chronic ob structive pulmonary disease 27428566 meds and follow up Gastroesop hageal reflux disease 206091005 meds and see GI Osteoarthritis 137461561 meds and PT... also pain meds help with crohns Crohn's disease 19407949 meds and see GI, and she takes aciphex/pr otonix combo per his recommenda tion... Allergic rhinitis 88451153 nose spray and follow up [id number] Miah Manuel MD [place] [id number] 08/02/2015 10:38:24 08/04/2015 18:40:37 Chronic obstructive pulmonary disease 30593611 J44.9 meds and follow up Essential hypertension 18884347 I10 meds and follow up... Crohn's disease 76857595 K50.90 meds and see GI, and she takes aciphex/pr otonix combo per his recommenda tion... Gastroesop hageal reflux disease 630660617 K21.9 meds and see GI Osteoarthritis 325504235 M19.90 meds and PT... also pain meds help with crohns Acute bronchitis 2723609 2 J20.9 nebulizer machine and follow up... Allergic rhinitis 331852 04 J30.9 nose spray and follow up [id number] Miah Manuel MD [place] [address] 3 11/02/2015 11:30:24 11/15/2015 18:48:09 Chronic obstructive pulmonary disease 90892510 J44.9 meds and follow up Crohn's disease 61442891 K50.90 meds and see GI, and she takes aciphex/pr otonix combo per his recommenda tion... Essential hypertension 71060240 I10 meds and follow up... Allergic rhinitis 262822 04 J30.9 nose spray and follow up Gastroesop hageal reflux disease 742788080 K21.9 meds and see GI Osteoarthritis 515257967 M19.90 meds and PT... also pain meds help with crohns Otitis externa 3091931 H 60.339 meds and follow up... [id number] Miah Manuel MD [place] [address] 3 01/31/2016 11:10:09 02/07/2016 08:32:46 Chronic obstructive pulmonary disease 06566021 J44.9 meds and follow up Essential hypertension 69029198 I10 meds and follow up... Crohn's disease 34976597 K50.90 meds and see GI, and she takes aciphex/pr otonix combo per his recommenda tion... Gastroesop hageal reflux disease 494424464 K21.9 meds and see GI Allergic rhinitis 647393 04 J30.9 nose spray and follow up Osteoarthritis 406823771 M19.90 meds and PT... also pain meds help with crohns [id number] Miah Manuel MD [place] [id number] 04/30/2016 11:28:14 05/04/2016 03:47:53 Chronic obstructive pulmonary disease 01058934 J44.9 meds and follow up Essential hypertension 95451148 I10 meds and follow up... Crohn's disease 76535028 K50.90 meds and see GI, and she takes aciphex/pr otonix combo per his recommenda tion... Gastroesop hageal reflux disease 828476143 K21.9 meds and see GI Allergic rhinitis 476954 04 J30.9 nose spray and follow up Osteoarthritis 558480656 M19.90 meds and PT... also pain meds help with crohns Anxiety 06430766 F41.9 Xanax for trip #3 pills... [id number] Miah Manuel MD [address] [address] 07/31/2016 10:16:43 08/06/2016 16:15:15 Chronic obstructive pulmonary disease 97058859 J44.9 meds and follow up Crohn's disease 12977827 K50.90 meds and see GI, and she takes aciphex/pr otonix combo per his recommenda tion... Essential hypertension 18372832 I10 meds and follow up... Allergic rhinitis 139217 04 J30.9 nose spray and follow up Anxiety 73236280 F41.9 stable Osteoarthritis 207703367 M19.90 meds and PT... also pain meds help with crohns Gastroesop hageal reflux disease 583425774 K21.9 meds and see GI [id number] Miah Manuel MD [place] [address] 3 09/18/2016 17:03:36 09/21/2016 11:35:44 Crusted scabies 361392269 B86 meds and follow up... Allergic rhinitis 450480 04 J30.9 nose spray and follow up [id number] Miah Manuel MD [place] [address] 3 10/23/2016 17:24:11 10/29/2016 08:47:22 Otitis externa 3070646 H60.339 meds and follow up... nte allergic to PCN/ERYTH/ QUINOLONE/ SULFA [id number] Miah Manuel MD [place] [address] 3 11/14/2016 16:26:46 11/16/2016 08:31:34 Chronic obstructive pulmonary disease 58703528 J44.9 meds and follow up Gastroesop hageal reflux disease 954717726 K21.9 meds and see GI Crohn's disease 23678648 K50.90 meds and see GI, and she takes aciphex/pr otonix combo per his recommenda tion... Essential hypertension 49274801 I10 meds and follow up... Osteoarthritis 676751901 M19.90 meds and PT... also pain meds help with crohns Allergic rhinitis 457211 04 J30.9 nose spray and follow up [id number] Miah Manuel MD [place] [address] 3 01/23/2017 10:51:52 02/15/2017 08:32:25 Essential hypertension 64855602 I10 meds and follow up... Crohn's disease 62533083 K50.90 meds and see GI, and she takes aciphex/pr otonix combo per his recommenda tion... Gastroesop hageal reflux disease 132903178 K21.9 meds and see GI Chronic ob structive pulmonary disease 46674517 J44.9 meds and follow up Osteoarthritis 518327392 M19.90 meds and PT... also pain meds help with crohns Anxiety 24985894 F41.9 stable Allergic rhinitis 202270 04 J30.9 nose spray and follow up [id number] Miah Manuel MD [place] [id number] 03/05/2017 17:21:10 03/12/2017 14:44:10 Upper respiratory infection 91903895 J06.9 she can tolerate Keflex.... treat and follow up [id number] Miah Manuel MD [place] [address] 3 04/30/2017 18:09:04 05/02/2017 10:20:37 Essential hypertension 28905306 I10 meds and follow up... Crohn's disease 33256671 K50.90 meds and see GI, and she takes aciphex/pr otonix combo per his recommenda tion... Gastroesop hageal reflux disease 670166534 K21.9 meds and see GI Chronic ob structive pulmonary disease 71308568 J44.9 meds and follow up Osteoarthritis 123053580 M19.90 meds and PT... also pain meds help with crohns Anxiety 45066746 F41.9 stable Allergic rhinitis 969366 04 J30.9 nose spray and follow up Hernia of abdominal cavity 29902209 K46.9 surgery on 05-10-2017 Otitis externa 7095620 H 60.339 meds and follow up... note allergic to PCN/ERYTH/ QUINOLONE/ SULFA [id number] Miah Manuel MD [address] [address] 07/31/2017 10:31:26 08/01/2017 10:40:22 Essential hypertension 56998490 I10 meds and follow up... Crohn's disease 72323870 K50.90 meds and see GI, and she takes aciphex/pr otonix combo per his recommenda tion... Chronic ob structive pulmonary disease 53594607 J44.9 meds and follow up Gastroesop hageal reflux disease 201205388 K21.9 meds and see GI Anxiety 45603998 F41.9 stable Osteoarthritis 198029080 M19.90 meds and PT... also pain meds help with crohns Allergic rhinitis 908472 04 J30.9 nose spray and follow up [id number] Miah Manuel MD [address] [address] 10/31/2017 10:19:20 10/31/2017 16:02:19 Crohn's disease 79416167 K50.90 meds and see GI, and she takes aciphex/pr otonix combo per his recommenda tion... Essential hypertension 43115971 I10 meds and follow up... Chronic ob structive pulmonary disease 76642236 J44.9 meds and follow up Gastroesop hageal reflux disease 938634297 K21.9 meds and see GI Anxiety 43423582 F41.9 stable Osteoarthritis 248177795 M19.90 meds and PT... also pain meds help with crohns Allergic rhinitis 549181 04 J30.9 nose spray and follow up General unsteadiness 271 418032 R26.81 seeing neurologis t with MRI pending ... Radha Jean MD [id number] Miah Manuel MD [address] [address] 01/28/2018 11:37:55 01/28/2018 15:17:49 Crohn's disease 24132156 K50.90 meds and see GI, and she takes aciphex/pr otonix combo per his recommenda tion... Essential hypertension 06041199 I10 meds and follow up... Chronic ob structive pulmonary disease 13767695 J44.9 meds and follow up Gastroesop hageal reflux disease 605505428 K21.9 meds and see GI Osteoarthritis 143338015 M19.90 meds and PT... also pain meds help with crohns Anxiety 26997278 F41.9 stable... Allergic rhinitis 509398 04 J30.9 nose spray and follow up... Hernia of abdominal cavity 18365334 K46.9 surgery was offered, but not scheduled yet... [id number] Miah Manuel MD [address] 3 04/30/2018 11:29:58 05/01/2018 08:51:11 Essential hypertension 32079944 I10 meds and follow up... Crohn's disease 61945939 K50.90 meds and see GI, and she takes aciphex/pr otonix combo per his recommenda tion... Chronic ob structive pulmonary disease 84818281 J44.9 meds and follow up Gastroesop hageal reflux disease 046430680 K21.9 meds and see GI Osteoarthritis 645282638 M19.90 meds and PT... also pain meds help with crohns Anxiety 03130399 F41.9 stable... Allergic rhinitis 452610 04 J30.9 nose spray and follow up... Hernia of abdominal cavity 30756368 K46.9 surgery was offered, but not scheduled yet... Pain in left arm 0553170 00 M79.602 refer to PT once cleared by cardiologi st... Atypical chest pain 1025 11091 R07.89 refer [id number] Miah Manuel MD [place] [address] 3 05/27/2018 18:02:59 05/29/2018 10:35:50 Upper respiratory infection 59669617 J06.9 she can tolerate Keflex.... treat and follow up... Xyzal/Nasa foreign... [id number] Miah Manuel MD [place] [address] 3 07/01/2018 11:18:44 07/01/2018 15:39:23 Osteoarthritis 446304695 M19.90 meds and PT... also pain meds help with crohns Essential hypertension 70586839 I10 meds and follow up... Crohn's disease 67653801 K50.90 meds and see GI, and she takes aciphex/pr otonix combo per his recommenda tion... Chronic ob structive pulmonary disease 17132581 J44.9 meds and follow up Gastroesop hageal reflux disease 154819609 K21.9 meds and see GI Anxiety 91963481 F41.9 stable... Allergic rhinitis 800422 04 J30.9 nose spray and follow up... Hernia of abdominal cavity 90848961 K46.9 surgery was offered, but not scheduled yet... Pain in left arm 8823892 00 M79.602 refer to PT once cleared by cardiologi st... Atypical chest pain 1025 15033 R07.89 referred.. . stress test done yesterday. .. results to be given today.. [id number] Miah Manuel MD [address] [address] 10/01/2018 10:57:11 10/03/2018 09:32:36 Essential hypertension 14214436 I10 meds and follow up... Osteoarthritis 997663003 M19.90 meds and PT... also pain meds help with crohns Crohn's disease 86408105 K50.90 meds and see GI, and she takes aciphex/pr otonix combo per his recommenda tion... Chronic ob structive pulmonary disease 66840709 J44.9 meds and follow up Gastroesop hageal reflux disease 948541625 K21.9 meds and see GI Anxiety 17607995 F41.9 stable... Allergic rhinitis 133878 04 J30.9 nose spray and follow up... Hernia of abdominal cavity 19047383 K46.9 surgery was offered, but not scheduled yet... Pain in left arm 4790415 00 M79.602 refer to PT once cleared by cardiologi st... Atypical chest pain 1025 23686 R07.89 referred.. . stress test done yesterday. .. results to be given today.. [id number] Miah Manuel MD [address] [address] 12/03/2018 10:45:23 12/03/2018 15:47:10 Essential hypertension 19545560 I10 meds and follow up... Osteoarthritis 865901150 M19.90 meds and PT... also pain meds help with crohns Crohn's disease 27759493 K50.90 meds and see GI, and she takes aciphex/pr otonix combo per his recommenda tion... Chronic ob structive pulmonary disease 34268028 J44.9 meds and follow up Gastroesop hageal reflux disease 017913274 K21.9 meds and see GI Anxiety 24335794 F41.9 stable... Allergic rhinitis 921423 04 J30.9 nose spray and follow up... Hernia of abdominal cavity 37153624 K46.9 surgery was offered, but not scheduled yet... Pain in left arm 7153517 00 M79.602 refer to PT once cleared by cardiologi st... Atypical chest pain 1025 55821 R07.89 referred.. . stress test done yesterday. .. results to be given today.. [id number] [place] [address] 03/05/2019 10:53:32 03/06/2019 10:50:00 Essential hypertension 10003435 I10 meds and follow up... Osteoarthritis 424301517 M19.90 meds and PT... also pain meds help with crohns Crohn's disease 84921639 K50.90 meds and see GI, and she takes aciphex/pr otonix combo per his recommenda tion... Chronic ob structive pulmonary disease 48242168 J44.9 meds and follow up Gastroesop hageal reflux disease 499788085 K21.9 meds and see GI Anxiety 34548646 F41.9 stable... Allergic rhinitis 830862 04 J30.9 nose spray and follow up... Hernia of abdominal cavity 71256746 K46.9 surgery was offered, but not scheduled yet... she will contact Dr. Bhardwaj at [facility]... Pain in left arm 9018577 00 M79.602 refer to PT once cleared by cardiologi st... Atypical chest pain 1025 12182 R07.89 referred.. . seeing cardiologi st... [id number] Miah Manuel MD [place] [id number] 06/16/2019 17:55:17 06/17/2019 09:37:04 Crohn's disease 39936233 K50.90 meds and see GI, and she takes aciphex/pr otonix combo per his recommenda tion... Allergic rhinitis 347720 04 J30.9 nose spray and follow up... [id number] Miah Manuel MD [address] [address] 07/29/2019 12:10:52 07/30/2019 10:00:09 Osteoarthritis 331459162 M19.90 meds and PT... also pain meds help with crohns Essential hypertension 58964593 I10 meds and follow up... Crohn's disease 57968021 K50.90 meds and see GI, and she takes aciphex/pr otonix combo per his recommenda tion... Chronic ob structive pulmonary disease 81271473 J44.9 meds and follow up Gastroesop hageal reflux disease 564754938 K21.9 meds and see GI Anxiety 03576777 F41.9 stable... Allergic rhinitis 587090 04 J30.9 nose spray and follow up... Hernia of abdominal cavity 20673415 K46.9 surgery was offered, but not scheduled yet... she will contact Dr. Bhardwaj at [facility]... Pain in left arm 1083069 00 M79.602 refer to PT [id number] Miah Manuel MD [address] [address] 11/27/2019 10:12:13 11/27/2019 11:23:53 Essential hypertension 37578990 I10 meds and follow up... Osteoarthritis 773422267 M19.90 meds and PT... also pain meds help with crohns... Crohn's disease 22167019 K50.90 meds and see GI, and she takes aciphex/pr otonix combo per his recommenda tion... colonoscop y .. Chronic ob structive pulmonary disease 80071996 J44.9 meds and follow up Gastroesop hageal reflux disease 389654329 K21.9 meds and see GI Anxiety 79400774 F41.9 stable... Allergic rhinitis 991486 04 J30.9 nose spray and follow up... Hernia of abdominal cavity 30322320 K46.9 surgery was offered, but not scheduled yet... she will contact Dr. Bhardwaj at [facility]... Pain in left arm 8150937 00 M79.602 refer to PT, but she wants to wait... [id number] Miah Manuel MD [place] [address] 3 12/15/2019 18:10:55 12/16/2019 09:52:58 Upper respiratory infection 13720272 J06.9 she can tolerate Keflex.... treat and follow up... Xyzal/Nasa foreign... [id number] Miah Manuel MD [place] [address] 3 02/26/2020 11:08:20 02/29/2020 08:33:17 Essential hypertension 13282414 I10 meds and follow up... Osteoarthritis 992850417 M19.90 .. also pain meds help with crohns... Crohn's disease 12832050 K50.90 meds and see GI, and she takes aciphex/pr otonix combo per his recommenda tion... colonoscop y .. Chronic ob structive pulmonary disease 23154277 J44.9 meds and follow up Gastroesop hageal reflux disease 217547628 K21.9 meds and see GI Anxiety 50181986 F41.9 stable... Allergic rhinitis 583402 04 J30.9 nose spray and follow up... Hernia of abdominal cavity 46519099 K46.9 surgery was offered, but not scheduled yet... she will contact Dr. Bhardwaj at [facility]... [id number] Miah Manuel MD [place] [address] 3 03/22/2020 12:32:13 03/23/2020 07:14:35 Essential hypertension 57129793 I10 meds and follow up... Osteoarthritis 197311597 M19.90 .. also pain meds help with crohns... Crohn's disease 59452154 K50.90 meds and see GI, and she takes aciphex/pr otonix combo per his recommenda tion... colonoscop y .. Chronic ob structive pulmonary disease 77971308 J44.9 meds and follow up Gastroesop hageal reflux disease 214222378 K21.9 meds and see GI Anxiety 37130133 F41.9 stable... Allergic rhinitis 418999 04 J30.9 nose spray and follow up... Hernia of abdominal cavity 42613458 K46.9 surgery was offered, but not scheduled yet... she will contact Dr. Bhardwaj at [facility]... [id number] Miah Manuel MD [place] [address] 3 06/14/2020 11:27:57 06/15/2020 07:30:20 Essential hypertension 28231344 I10 meds and follow up... Osteoarthritis 136034719 M19.90 .. also pain meds help with crohns... Crohn's disease 56678790 K50.90 meds and see GI, and she takes aciphex/pr otonix combo per his recommenda tion... colonoscop y .. Chronic ob structive pulmonary disease 92078681 J44.9 meds and follow up Gastroesop hageal reflux disease 523384857 K21.9 meds and see GI Anxiety 04909193 F41.9 stable... Allergic rhinitis 593207 04 J30.9 nose spray and follow up... Hernia of abdominal cavity 96507373 K46.9 surgery was offered, but not scheduled yet... she will contact Dr. Bhardwaj at [facility]... [id number] Miah Manuel MD [place] [address] 3 08/19/2020 10:31:57 08/22/2020 05:42:22 Essential hypertension 12923050 I10 meds and follow up... Osteoarthritis 590962944 M19.90 .. also pain meds help with crohns... Crohn's disease 65401648 K50.90 meds and see GI, and she takes aciphex/pr otonix combo per his recommenda tion... colonoscop y .. Chronic ob structive pulmonary disease 32004706 J44.9 meds and follow up Gastroesop hageal reflux disease 712815755 K21.9 meds and sees GI, follow up per Dr. Hussein... Anxiety 43447829 F41.9 stable... Allergic rhinitis 692260 04 J30.9 nose spray and follow up... Hernia of abdominal cavity 26254820 K46.9 surgery was offered, but not scheduled yet... she will contact Dr. Bhardwaj at [facility]... [id number] Miah Manuel MD [place] [address] 3 10/19/2020 11:29:32 10/20/2020 06:35:54 Essential hypertension 99785993 I10 meds and follow up... Osteoarthritis 430703459 M19.90 .. also pain meds help with crohns... Crohn's disease 33899258 K50.90 meds and see GI, and she takes aciphex/pr otonix combo per his recommenda tion... colonoscop y .. Chronic ob structive pulmonary disease 53718001 J44.9 meds and follow up Gastroesop hageal reflux disease 511612497 K21.9 meds and sees GI, follow up per Dr. Hussein... Anxiety 96010916 F41.9 stable... Allergic rhinitis 543907 04 J30.9 nose spray and follow up... Hernia of abdominal cavity 13587864 K46.9 surgery was offered, but not scheduled yet... she will contact Dr. Bhardwaj at [facility]... [id number] Miah Manuel MD [address] [address] 11/18/2020 12:50:32 11/21/2020 06:39:05 Essential hypertension 46885599 I10 meds and follow up... Osteoarthritis 558724563 M19.90 .. also pain meds help with crohns... Crohn's disease 91037519 K50.90 meds and see GI, and she takes aciphex/pr otonix combo per his recommenda tion... colonoscop y .. Chronic ob structive pulmonary disease 15745484 J44.9 meds and follow up Gastroesop hageal reflux disease 369136036 K21.9 meds and sees GI, follow up per Dr. Hussein... Anxiety 53931241 F41.9 stable... Allergic rhinitis 453464 04 J30.9 nose spray and follow up... Hernia of abdominal cavity 76967143 K46.9 surgery was offered, but not scheduled yet... she will contact Dr. Bhardwaj at [facility]... [id number] Miah Manuel MD [place] [address] 3 12/16/2020 10:35:14 12/20/2020 05:37:09 Osteoarthritis 255561921 M19.90 .. also pain meds help with crohns... Essential hypertension 47739814 I10 meds and follow up... Crohn's disease 81099397 K50.90 meds and see GI, and she takes aciphex/pr otonix combo per his recommenda tion... colonoscop y .. Chronic ob structive pulmonary disease 41737487 J44.9 meds and follow up Gastroesop hageal reflux disease 495648049 K21.9 meds and sees GI, follow up per Dr. Hussein... Anxiety 64849545 F41.9 stable... Allergic rhinitis 903366 04 J30.9 nose spray and follow up... Hernia of abdominal cavity 02359400 K46.9 surgery was offered, but not scheduled yet... she will contact Dr. Bhardwaj at [facility]... [id number] Miah Manuel MD [place] [address] 3 01/16/2021 11:16:57 01/17/2021 07:03:02 Essential hypertension 82655356 I10 meds and follow up... Osteoarthritis 086208666 M19.90 .. also pain meds help with crohns... Crohn's disease 08201560 K50.90 meds and see GI, and she takes aciphex/pr otonix combo per his recommenda tion... colonoscop y .. Chronic ob structive pulmonary disease 42872046 J44.9 meds and follow up Gastroesop hageal reflux disease 090199695 K21.9 meds and sees GI, follow up per Dr. Hussein... Aciphex for sx... Anxiety 64884363 F41.9 stable... Allergic rhinitis 860757 04 J30.9 nose spray and follow up... Hernia of abdominal cavity 12977536 K46.9 surgery was offered, but not scheduled yet... she will contact Dr. Bhardwaj at [facility]... [id number] Miah Manuel MD [address] [address] 02/17/2021 10:09:42 02/19/2021 13:17:45 Osteoarthritis 882419262 M19.90 .. also pain meds help with crohns... Essential hypertension 23622314 I10 meds and follow up... Crohn's disease 77615053 K50.90 meds and see GI, and she takes aciphex/pr otonix combo per his recommenda tion... colonoscop y .. Chronic ob structive pulmonary disease 08141164 J44.9 meds and follow up Gastroesop hageal reflux disease 399592575 K21.9 meds and sees GI, follow up per Dr. Hussein... Anxiety 62865370 F41.9 stable... Allergic rhinitis 426836 04 J30.9 nose spray and follow up... Hernia of abdominal cavity 15325714 K46.9 surgery was offered, but not scheduled yet... she will contact Dr. Bhardwaj at [facility]... [id number] Miah Manuel MD [address] [address] 03/20/2021 10:39:07 03/21/2021 13:28:46 Osteoarthritis 386356813 M19.90 .. also pain meds help with crohns... Essential hypertension 66221433 I10 meds and follow up... Crohn's disease 43107369 K50.90 meds and see GI, and she takes aciphex/pr otonix combo per his recommenda tion... colonoscop y .. Chronic ob structive pulmonary disease 41141947 J44.9 meds and follow up Gastroesop hageal reflux disease 510072496 K21.9 meds and sees GI, follow up per Dr. Hussein... Anxiety 77605262 F41.9 stable... Allergic rhinitis 491908 04 J30.9 nose spray and follow up... Hernia of abdominal cavity 35219342 K46.9 surgery was offered, but not scheduled yet... she will contact Dr. Bhardwaj at [facility]... Upper resp iratory infection 22200215 J06.9 she can tolerate Keflex.... treat and follow up... [id number] Miah Manuel MD [address] [address] 04/21/2021 10:35:48 04/21/2021 19:09:28 Osteoarthritis 666001719 M19.90 .. also pain meds help with crohns... Essential hypertension 35921088 I10 meds and follow up... Crohn's disease 68612708 K50.90 meds and see GI, and she takes aciphex/pr otonix combo per his recommenda tion... colonoscop y .. Chronic ob structive pulmonary disease 88963250 J44.9 meds and follow up Gastroesop hageal reflux disease 346977624 K21.9 meds and sees GI, follow up per Dr. Hussein... Anxiety 25711755 F41.9 stable... Allergic rhinitis 002145 04 J30.9 nose spray and follow up... Hernia of abdominal cavity 66120641 K46.9 surgery was offered, but not scheduled yet... she will contact Dr. Bhardwaj at [facility]... [id number] Miah Manuel MD [address] [address] 06/08/2021 13:02:46 06/09/2021 14:22:58 Chronic obstructive pulmonary disease 60107452 J44.9 meds and follow up Osteoarthritis 776072724 M19.90 .. also pain meds help with crohns... Essential hypertension 42263814 I10 meds and follow up... Crohn's disease 51149813 K50.90 meds and see GI, and she takes aciphex/pr otonix combo per his recommenda tion... colonoscop y .. Gastroesop hageal reflux disease 586539255 K21.9 meds and sees GI, follow up per Dr. Hussein... Anxiety 34833416 F41.9 stable... Allergic rhinitis 305616 04 J30.9 nose spray and follow up... Hernia of abdominal cavity 18489613 K46.9 surgery was offered, but not scheduled yet... she will contact Dr. Bhardwaj at [facility]... [id number] Miah Manuel MD [place] [id number] 3 08/08/2021 09:47:09 08/09/2021 09:52:56 Chronic obstructive pulmonary disease 05212729 J44.9 meds and follow up Gastroesop hageal reflux disease 104984262 K21.9 meds and sees GI, follow up per Dr. Hussein... Crohn's disease 66707490 K50.90 meds and see GI, and she takes aciphex/pr otonix combo per his recommenda tion... colonoscop y .. Osteoarthritis 061678436 M19.90 .. also pain meds help with crohns... Essential hypertension 33384849 I10 meds and follow up... Anxiety 28004475 F41.9 stable... Allergic rhinitis 744599 04 J30.9 nose spray and follow up... Hernia of abdominal cavity 11406017 K46.9 surgery was offered, but not scheduled yet... she will contact Dr. Bhardwaj at [facility]... [id number] Miah Manuel MD [address] [address] 10/24/2021 17:16:00 10/28/2021 12:10:56 [facility] 63482927 L65.9 refer... Crohn's disease 02383082 K50.90 meds and see GI, and she takes aciphex/pr otonix combo per his recommenda tion... colonoscop y .. Allergic rhinitis 422840 04 J30.9 nose spray and follow up... [id number] Miah Manuel MD [address] [address] 11/08/2021 10:21:43 11/09/2021 08:46:37 Osteoarthritis 122791955 M19.90 .. also pain meds help with crohns... Alopecia 41326370 L65.9 refer... Crohn's disease 58256824 K50.90 meds and see GI, and she takes aciphex/pr otonix combo per his recommenda tion... colonoscop y ... Allergic rhinitis 696479 04 J30.9 nose spray and follow up... Chronic ob structive pulmonary disease 15764260 J44.9 meds and follow up Gastroesop hageal reflux disease 027246920 K21.9 meds and sees GIDr. Hussein... Essential hypertension 41076875 I10 meds and follow up... Anxiety 59792320 F41.9 stable... Hernia of abdominal cavity 58326982 K46.9 surgery was offered, but not scheduled yet... sees Dr. Bhardwaj at [facility]... Hypokalemia 97124713 E87 .6 recheck and follow up... advised taking meds regularly as she forgets on weekends.. . 1 month follow up... [id number] Miah Manuel MD [address] [address] 12/06/2021 10:05:51 12/07/2021 09:59:14 Osteoarthritis 513005120 M19.90 .. also pain meds help with Crohns... Alopecia 47268568 L65.9 refer... Crohn's disease 43767234 K50.90 meds and see GI, and she takes aciphex/pr otonix combo per his recommenda tion... colonoscop y ... Allergic rhinitis 698816 04 J30.9 nose spray and follow up... Chronic ob structive pulmonary disease 45575852 J44.9 meds and follow up Gastroesop hageal reflux disease 333408600 K21.9 meds and sees GI, Dr. Hussein... Essential hypertension 87637167 I10 meds and follow up... Anxiety 55192360 F41.9 stable... Hernia of abdominal cavity 34032195 K46.9 surgery was offered, but not scheduled yet... sees Dr. Bhardwaj at [facility]... Hypokalemia 87343048 E87 .6 recheck and follow up... advised taking meds regularly as she forgets on weekends.. . 3.5 = potassium [id number] Miah Manuel MD [place] [address] 3 02/05/2022 13:50:07 02/06/2022 14:44:09 Crohn's disease 35351259 K50.90 meds and see GI, and she takes aciphex/pr otonix combo per his recommenda tion... colonoscop y ... Osteoarthritis 541359374 M19.90 .. also pain meds help with Crohns... Alopecia 49930346 L65.9 refer... Allergic rhinitis 893745 04 J30.9 nose spray and follow up... Chronic ob structive pulmonary disease 60330584 J44.9 meds and follow up Gastroesop hageal reflux disease 449187596 K21.9 meds and sees GI, Dr. Hussein... Essential hypertension 00987496 I10 meds and follow up... Anxiety 77307896 F41.9 stable... Hernia of abdominal cavity 33399471 K46.9 surgery was offered, but not scheduled yet... sees Dr. Bhardwaj at [facility]... Hypokalemia 39436774 E87 .6 recheck and follow up... advised taking meds regularly as she forgets on weekends.. . 3.5 = potassium [id number] Miah Manuel MD [address] [address] 03/07/2022 11:43:06 03/08/2022 09:49:35 Crohn's disease 05928936 K50.90 meds and see GI, and she takes aciphex/pr otonix combo per his recommenda tion... colonoscop y ... Osteoarthritis 066418463 M19.90 .. also pain meds help with Crohns... low back pain treat with home PT and meds Alopecia 10791858 L65.9 refer... Allergic rhinitis 014202 04 J30.9 nose spray and follow up... Chronic ob structive pulmonary disease 47940000 J44.9 meds and follow up Gastroesop hageal reflux disease 789937316 K21.9 meds and sees GIDr. Hussein... Essential hypertension 67869231 I10 meds and follow up... Anxiety 24486893 F41.9 stable... Hernia of abdominal cavity 83170879 K46.9 surgery was offered, but not scheduled yet... sees Dr. Bhardwaj at [facility]... Hypokalemia 75826520 E87 .6 recheck and follow up... advised taking meds regularly as she forgets on weekends.. . 3.5 = potassium [id number] Miah Manuel MD [address] [address] 04/05/2022 11:48:47 04/06/2022 09:57:20 Thoracic back pain 496909968 M54.6 order x-ray and follow up... Crohn's disease 39493303 K50.90 meds and see GI, and she takes aciphex/pr otonix combo per his recommenda tion... colonoscop y ... Osteoarthritis 833413000 M19.90 .. also pain meds help with Crohns... low back pain treat with home PT and meds Alopecia 91403881 L65.9 refer... Allergic rhinitis 864345 04 J30.9 nose spray and follow up... Chronic ob structive pulmonary disease 14832884 J44.9 meds and follow up Gastroesop hageal reflux disease 895694010 K21.9 meds and sees GIDr. Hussein... Essential hypertension 09313754 I10 meds and follow up... Anxiety 05300418 F41.9 stable... Hernia of abdominal cavity 79127662 K46.9 surgery was offered, but not scheduled yet... sees Dr. Bhardwaj at [facility]... Hypokalemia 06131787 E87 .6 recheck and follow up... advised taking meds regularly as she forgets on weekends.. . 3.5 = potassium Pain of bi lateral knee joints 6635309593 45249 M25.561 M25.562 brace and follow up.. [id number] Miah Manuel MD [address] [address] 05/07/2022 10:12:04 05/08/2022 23:16:42 Essential hypertension 57933473 I10 meds and follow up... Crohn's disease 74849173 K50.90 meds and see GI, and she takes aciphex/pr otonix combo per his recommenda tion... colonoscop y ... Osteoarthritis 358080739 M19.90 .. also pain meds help with Crohns... low back pain treat with home PT and meds Alopecia 87652660 L65.9 referred Allergic rhinitis 929189 04 J30.9 nose spray and follow up... Chronic ob structive pulmonary disease 62532094 J44.9 meds and follow up Gastroesop hageal reflux disease 673744945 K21.9 meds and sees GI, Dr. Hussein... Anxiety 83766526 F41.9 stable... Hernia of abdominal cavity 12492490 K46.9 surgery was offered, but not scheduled yet... sees Dr. Bhardwaj at [facility]... Hypokalemia 64147425 E87 .6 recheck and follow up... advised taking meds regularly as she forgets on weekends.. . 3.5 = potassium [id number] Miah Manuel MD [address] [address] 06/26/2022 15:56:08 06/27/2022 07:57:21 Upper respiratory infection 86946453 J06.9 she can tolerate Keflex.... treat and follow up... [id number] Miah Manuel MD [address] [address] 07/02/2022 11:24:48 07/04/2022 08:10:40 Crohn's disease 70427670 K50.90 meds and see GI, and she takes aciphex/pr otonix combo per his recommenda tion... colonoscop y ... Essential hypertension 69624302 I10 meds and follow up... Osteoarthritis 468305641 M19.90 .. also pain meds help with Crohns... low back pain and neck pain with ROM... neck MRI pending and EMG/NCS pending.. Alopecia 95680458 L65.9 referred, but didnt see derm... hair has corrected itself.. Allergic rhinitis 151030 04 J30.9 nose spray and follow up... Chronic ob structive pulmonary disease 52117700 J44.9 meds and follow up Gastroesop hageal reflux disease 070139502 K21.9 meds and sees GI, Dr. Hussein... Anxiety 80901848 F41.9 stable... Hernia of abdominal cavity 47331521 K46.9 surgery was offered, but not scheduled yet... sees Dr. Bhardwaj at [facility]... Hypokalemia 08440739 E87 .6 stable [id number] Miah Manuel MD [address] [address] 10/15/2022 11:51:19 10/16/2022 11:54:29 Allergic rhinitis 26948379 J30.9 nose spray and follow up... Essential hypertension 79063342 I10 meds and follow up... Osteoarthritis 555685449 M19.90 .. also pain meds help with Crohns... low back pain and neck pain with ROM... neck MRI pending and EMG/NCS pending.. Crohn's disease 95450649 K50.90 meds and see GI, and she takes aciphex/pr otonix combo per his recommenda tion... colonoscop y ... Gastroesop hageal reflux disease 188317227 K21.9 meds and sees GIDr. Hussein... Chronic ob structive pulmonary disease 04176352 J44.9 meds and follow up Low back pain 391009561 M54.50 order and follow up... use cane and walker... 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 10-20-2018 ... Neuropathy 645801231 G62 .9 right hand with surgery pending.. Umbilical hernia 7610852 07 K42.9 right side periumbicu lar hernia about softball sized... seeing surgeon [id number] Miah Manuel MD [address] [address] 12/12/2022 10:58:47 12/13/2022 12:11:57 Allergic rhinitis 43734869 J30.9 nose spray and follow up... Essential hypertension 63850749 I10 meds and follow up... Osteoarthritis 310656581 M19.90 .. also pain meds help with Crohns... low back pain and neck pain with ROM... neck MRI shows cord flattening C3- C7 per 09-21-2023 ortho note Crohn's disease 94923723 K50.90 meds and see GI, and she takes aciphex/pr otonix combo per his recommenda tion... colonoscop y ... Gastroesop hageal reflux disease 030667142 K21.9 meds and sees GI, Dr. Hussein... Chronic ob structive pulmonary disease 59345071 J44.9 meds and follow up Obesity 156207008 E66.9 BMI=30.7 Neuropathy 207354020 G62 .9 bx done by neuro per patient... follow up... Pain in fi nger of right hand 2347256333 67135 M79.920 [id number] Miah Manuel MD [address] [address] 02/13/2023 16:05:09 02/14/2023 14:58:16 Obesity 439423825 E66.9 BMI=30.7 Allergic rhinitis 624221 04 J30.9 nose spray and follow up... Essential hypertension 08356941 I10 meds and follow up... Osteoarthritis 565542918 M19.90 .. also pain meds help with Crohns... low back pain and neck pain with ROM... neck MRI shows cord flattening C3- C7 per 09-21-2023 ortho note Crohn's disease 42391530 K50.90 meds and see GI, and she takes aciphex/pr otonix combo per his recommenda tion... colonoscop y ... Gastroesop hageal reflux disease 756851566 K21.9 meds and sees GIDr. Hussein... Chronic ob structive pulmonary disease 75295592 J44.9 meds and follow up Neuropathy 552821967 G62 .9 bx done by neuro per patient... follow up... Pain in fi nger of right hand 8978415486 28398 M79.644 appt pending potassium normalizat ion.. Hypokalemia 58451193 E87 .6 stable [id number] Miah Manuel MD [place] [address] 3 04/02/2023 11:54:26 04/08/2023 09:46:28 Obesity 906661818 E66.9 BMI=31 Allergic rhinitis 577859 04 J30.9 nose spray and follow up... Essential hypertension 46373045 I10 meds and follow up... Osteoarthritis 655667997 M19.90 .. also pain meds help with Crohns... low back pain and neck pain with ROM... neck MRI shows cord flattening C3- C7 per 09-21-2022 ortho note... Crohn's disease 59397487 K50.90 meds and see GI, and she takes aciphex/pr otonix combo per his recommenda tion... colonoscop y ... Gastroesop hageal reflux disease 809707885 K21.[address] Jovita HUMPHREY... Chronic ob structive pulmonary disease 37343391 J44.9 meds and follow up Neuropathy 620044532 G62 .9 bx done by neuro per patient... follow up... Pain in fi nger of right hand 6617932608 62291 M79.644 appt pending potassium normalizat ion.. Hypokalemia 54440045 E87 .6 3.0.... increase to BID and check in 2 weeks... [id number] Miah Manuel MD [place] [id number] 06/03/2023 11:02:51 06/12/2023 10:06:24 Osteoarthritis 215650723 M19.90 .. also pain meds help with Crohns... low back pain and neck pain with ROM... neck MRI shows cord flattening C3- C7 per 09-21-2023 ortho note Obesity 403964114 E66.9 BMI=30.8 Allergic rhinitis 731652 04 J30.9 nose spray and follow up... Essential hypertension 70182994 I10 meds and follow up... Crohn's disease 62743222 K50.90 meds and see GI, and she takes aciphex/pr otonix combo per his recommenda tion... colonoscop y ... Gastroesop hageal reflux disease 567137327 K21.9 meds and sees GI, Dr. Hussein... Chronic ob structive pulmonary disease 96607117 J44.9 meds and follow up... smoked 2-3 ppd for 15 years, but stopped 2008... Neuropathy 372296680 G62 .9 bx done by neuro per patient... follow up... Pain in fi nger of right hand 9653893966 67777 M79.644 appt pending potassium normalizat ion.. Hypokalemia 27776258 E87 .6 3.0.... increase to BID and check in 2 weeks... Bite of insect 194363576 W57.XXXA steroid and follow up if visual affcts or worsening sx... [id number] Miah Manuel MD [address] [address] 09/02/2023 11:08:44 09/03/2023 08:57:13 Obesity 623415308 E66.9 BMI=31 Osteoarthritis 208606325 M19.90 .. also pain meds help with Crohns... low back pain and neck pain with ROM... neck MRI shows cord flattening C3- C7 per 09-21-2022 ortho note Allergic rhinitis 597212 04 J30.9 nose spray and follow up... Essential hypertension 21167252 I10 meds and follow up... Crohn's disease 65699066 K50.90 meds and see GI, and she takes aciphex/pr otonix combo per his recommenda tion... colonoscop y ... Gastroesop hageal reflux disease 423720720 K21.9 meds and sees GIDr. Hussein... Chronic ob structive pulmonary disease 82074518 J44.9 meds and follow up... smoked 2-3 ppd for 15 years, but stopped 2008... Neuropathy 894683418 G62 .9 bx done by neuro per patient... follow up... Pain in fi nger of right hand 1071004095 87446 M79.644 appt pending potassium normalizat ion.. Hypokalemia 55461053 E87 .6 3.0.... increase to BID and check in 2 weeks... Pain of ri ght elbow joint 5103875277 9440267 M25.804 [id number] Miah Manuel MD [address] [address] 11/04/2023 10:55:17 11/06/2023 09:09:52 Obesity 227300881 E66.9 BMI=31.6 Osteoarthritis 063823236 M19.90 .. also pain meds help with Crohns... low back pain and neck pain with ROM... neck MRI shows cord flattening C3- C7 per 09-21-2022 ortho note Allergic rhinitis 318279 04 J30.9 nose spray and follow up... Essential hypertension 42328578 I10 meds and follow up... Crohn's disease 48052070 K50.90 meds and see GI, and she takes aciphex/pr otonix combo per his recommenda tion... colonoscop y ... Gastroesop hageal reflux disease 986083523 K21.9 meds and sees GI, Dr. Hussein... appt 01-16-2024 with MRI pending... Chronic ob structive pulmonary disease 59067270 J44.9 meds and follow up... smoked 2-3 ppd for 15 years, but stopped 2008... Neuropathy 389927645 G62 .9 bx done by neuro per patient... follow up... Pain in fi nger of right hand 5200825456 88454 M79.644 appt pending potassium normalizat ion.. Hypokalemia 59369394 E87 .6 3.4.... refer to renal Swelling o f first metatarsal joint of hallux of left foot 3643273686 586146 M25.641 [id number] Miah Manuel MD [address] [address] 01/03/2024 10:21:13 01/06/2024 08:25:21 Obesity 999000103 E66.9 BMI=31.8 Osteoarthritis 842334256 M19.90 .. also pain meds help with Crohns... low back pain and neck pain with ROM... neck MRI shows cord flattening C3- C7 per 09-21-2022 ortho note Allergic rhinitis 352652 04 J30.9 nose spray and follow up... Essential hypertension 67954746 I10 meds and follow up... Crohn's disease 49578247 K50.90 meds and see GI, and she takes aciphex/pr otonix combo per his recommenda tion... colonoscop y ... Gastroesop hageal reflux disease 998274470 K21.9 meds and sees GI, Dr. Hussein... appt 01-16-2024 with MRI pending... Chronic ob structive pulmonary disease 89231834 J44.9 meds and follow up... smoked 2-3 ppd for 15 years, but stopped 2008... Neuropathy 626441628 G62 .9 bx done by neuro per patient... follow up... Pain in fi nger of right hand 5630721022 58185 M79.644 appt pending potassium normalizat ion.. Hypokalemia 20584815 E87 .6 3.4.... refer to renal Swelling o f first metatarsal joint of hallux of left foot 0418495342 971344 M25.475 foot pain still evident and nail is loose on medial aspect.. [id number] Miah Manuel MD [address] [address] 03/04/2024 11:09:39 03/05/2024 09:25:26 Obesity 145953734 E66.8 BMI=31.8 Osteoarthritis 939723227 M19.90 .. also pain meds help with Crohns... low back pain and neck pain with ROM... neck MRI shows cord flattening C3- C7 per 09-21-2022 ortho note Allergic rhinitis 921874 04 J30.9 nose spray and follow up... Essential hypertension 06149073 I10 meds and follow up... Crohn's disease 10049621 K50.90 meds and see GI, and she takes aciphex/pr otonix combo per his recommenda tion... colonoscop y ... Gastroesop hageal reflux disease 675672916 K21.9 meds and sees GI, Dr. Hussein... saw 01-16-2024 and scope in 6 months Chronic ob structive pulmonary disease 66666488 J44.9 meds and follow up... smoked 2-3 ppd for 15 years, but stopped 2008... Neuropathy 101549044 G62 .9 bx done by neuro per patient... follow up... Pain in fi nger of right hand 7064936475 96817 M79.644 appt pending potassium normalizat ion.. Hypokalemia 22009743 E87 .6 3.4.... refer to renal Swelling o f first metatarsal joint of hallux of left foot 3912260977 510436 M25.475 foot pain still evident and nail is loose on medial aspect.. Atypical chest pain 1025 01769 R07.89 referred.. . seeing cardiologi st... [id number] Miah Manuel MD [address] [address] 03/30/2024 11:08:45 03/31/2024 09:21:32 Obesity 721245519 E66.8 BMI=31.9 Fracture o f phalanx of foot 95078685 S92.912A brett tape toe and refer.. Hypokalemia 11643943 E87 .6 3.1.... refer to renal Crohn's disease 44841684 K50.90 meds and see GI, and she takes aciphex/pr otonix combo per his recommenda tion... colonoscop y ... Essential hypertension 87441707 I10 meds and follow up... Chronic ob structive pulmonary disease 44726892 J44.9 meds and follow up... smoked 2-3 ppd for 15 years, but stopped 2008... Allergic rhinitis 114550 04 J30.9 nose spray and follow up... Osteoarthritis 675062258 M19.90 .. also pain meds help with Crohns... low back pain and neck pain with ROM... neck MRI shows cord flattening C3- C7 per 09-21-2022 ortho note [id number] Miah Manuel MD [address] [address] 06/29/2024 11:32:17 06/30/2024 10:14:56 Crohn's disease 23816732 K50.90 meds and see GI, and she takes aciphex/im uran... colonoscop y 07-22-2024 ... Vitamin D deficiency 347 37737 E55.9 Obesity 086183870 E66.9 BMI=31.9 Fracture o f phalanx of foot 83985843 S92.912A brett tape toe and refer.. Hypokalemia 87006327 E87 .6 4.1... refer to renal Essential hypertension 65011072 I10 meds and follow up... Chronic ob structive pulmonary disease 12909102 J44.9 meds and follow up... smoked 2-3 ppd for 15 years, but stopped 2008... Allergic rhinitis 404230 04 J30.9 nose spray and follow up... Osteoarthritis 014926540 M19.90 .. also pain meds help with Crohns... low back pain and neck pain with ROM... neck MRI shows cord flattening C3- C7 per 09-21-2022 ortho note Screening mammography 24 391612 Z12.31 was done in 2023 per patient by OB... pt to have results sent... Pain in left foot 026186 0432 26353 M79.520 [id number] Julio Zheng MD [facility] [address] [place] [address] 08/18/2024 11:03:01 08/24/2024 15:05:11 Chronic kidney disease stage 3 044245750 N18.30 She appears to have ckd with egfr of 57ml/min with creat of 1.0 mg/dlRisk factors for ckd include h/o h/ohtn,?de hydration sec to diarrhea due to crohn's dzClinical ly euvolemic. .Meds noted,stop ped HCTZiNCREA SE PO INTAKE OF WATER. History of Crohns disease [id number] 88447 Z87.19 plan per gi specialist ,pt on Essential hypertension 71424779 I10 BP high today .Increase Metopriolo l succinate to 25mg bid (pt not taking Lisinopril for many yrs) Vitamin D deficiency 347 03639 E55.9 cont vit d supplement .PCP managing . Hypokalemia 54204685 E87 .6 STOP hctz [id number] Miah Manuel MD [address] [address] 10/08/2024 15:19:12 10/13/2024 11:13:07 Overweight 835735536 E66.3 bmi=29.9 Acute sinusitis 46437372 J01.90 meds x 3 weeks.. Closed fra cture of left foot 8882030031 9993373 S92.902D refer to [facility] Crohn's disease 66450453 K50.90 meds and see GI, and she takes aciphex/pr otonix combo per his recommenda tion... colonoscop y ... Hypokalemia 02502441 E87 .6 seeing renal... follow up with his rec Chronic ob structive pulmonary disease 79535948 J44.9 meds and follow up... smoked 2-3 ppd for 15 years, but stopped 2008... Allergic rhinitis 946441 04 J30.9 nose spray and follow up... Vitamin D deficiency 347 31568 E55.9 [id number] FILIPE KRUEGER MD [facility] [address] [place] [address] 10/08/2024 16:39:09 10/09/2024 12:56:17 Laboratory test due 156588192 Z76.89 [id number] Nitish Keenan DPM [facility] [facility] [address] [place] [address] 10/23/2024 11:43:33 01/15/2025 11:49:08 Capsulitis of metatarsophalangeal joint of left foot [id number] M77.52 Dislocation of joint 108 687637 S93.105D [id number] Miah Manuel MD [address] [address] 12/08/2024 14:56:05 12/09/2024 08:40:51 Adult health examination [id number] Z00.00 Health Risk Assessment collected and reviewed Overweight 219260490 E66 .3 bmi=27.3 Crohn's disease 24081363 K50.90 meds and see GI, and she takes aciphex/pr otonix combo per his recommenda tion... colonoscop y ... Chronic ob structive pulmonary disease 99675194 J44.9 meds and follow up... smoked 2-3 ppd for 15 years, but stopped 2008... Hypokalemia 70672659 E87 .6 seeing renal... follow up with his rec... stop HCTZ.... Vitamin D deficiency 347 63614 E55.9 Edema of l ower extremity 081878304 R60.0 Essential hypertension 30283442 I10 meds and follow up... check out-pt and follow up. [id number] Miah Manuel MD [address] [address] 01/08/2025 11:13:53 01/11/2025 07:19:53 Crohn's disease 19761588 K50.90 K50.919 meds and see GI, and she takes aciphex/pr otonix combo per his recommenda tion... colonoscop y ... Overweight 303666364 E66 .3 bmi=27.1 Essential hypertension 10628244 I10 meds and follow up... check out-pt and follow up... add low dose CaCB Hypokalemia 21596498 E87 .6 seeing renal... follow up with his rec... stopped HCTZ.... Vitamin D deficiency 347 55527 E55.9 Edema of l eft lower limb 762736751 R60.0 Neck pain 97539425 M54.2 Screening mammography 24 376904 Z12.31 was done in 2023 per patient by OB... pt to have results sent... Screening for malignant neoplasm of colon 486026121 Z12.11 screening per GI... Health Concerns Section Related Observation LastModified by Organization Detai ls LastModified Time None Recorded Concern Status LastModified by Organization Details LastModified Time None Recorded Advance Directives Directive N: Payers Encounter Date Sequence Insurance Name Policy Number Policy Cardona Covered Member ID Cardona Member ID Guarantor Name 10/08/2024 2 [place] WHEN MEDICARE OR MEDICARE REPLACEMENT PRIMARY) Angélica Case [id number] Angélica Case 10/08/2024 1 [place] Angélica L Case [id number] Angélica Case 10/23/2024 1 [place] Ang[place]lica L Case [id number] Angélica Case 10/23/2024 2 [place] OR MEDICARE REPLACEMENT PRIMARY) Angélica Case [id number] Angélica Case 12/08/2024 2 [place] OR MEDIC[place] REPLACEMENT PRIMARY) Angélica Case [id number] Angélica Case 12/08/2024 1 [place] Ang[place]lica L Case [id number] Angélica Case 01/08/2025 2 [place] OR MEDICARE REPLACEMENT PRIMARY) Angélica Case [id number] Angélica Case 01/08/2025 1 [place] Angélica L Case [id number] Angélica Case Notes Date Note Type Note Provider Name and Address Organization Details Recorded Time 10/08/2024 text/html sinus congestion since ... got better with Keflex, but return when dosage ran out... coughing/laryngiti s... blood from nose blowing on ioccasion... no smoke/smoke exposure... no pets, but has stray cats in her area, but not in the home... no S/H deations.. Miah Manuel MD Attn: Accounting[address] [facility], [place], [address], [place] 10/08/2024 16:33:39 10/23/2024 text/html patient states today complaining that she had an old injury to the 5th toe of the left foot back in February or March. She states that she had x-rays done. She states that the toe was pointing out where but when she walked on it to kind of reduce his self back over. States now she has pain in the ball of the foot whenever she is very active. States it was actually getting worse over time. Nitish Keenan, DPM [address] [place], [address], [facility] 01/14/2025 19:55:22 12/08/2024 text/html renal assessing high potassium... no fevers/chills/SOB. .. no S/H ideations.. Miah Manuel MD Attn: Accounting[address] [place], [address], [facility] 12/08/2024 16:16:01 01/08/2025 text/html BP has been running high... has stopped HCTz Miah Manuel MD Attn: Accounting[address] [place], [address], [facility] 01/08/2025 12:22:51 OBGyn Episode No OBEpisode recorded.
--- OUTSIDE RECORDS SUMMARY | 2025-02-10 16:15 | XMS_ITS | Encounter Summary ---
Author Organization [facility] Address 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
[2025-02-10 16:23] VITALS: BP 154/87; PULSE 73; RESP 16; TEMP 36.4; O2SAT 100
--- NOTE | 2025-02-10 17:02 | ED_ITS ---
HPI - Skin/Abscess/Foreign Bdy General Chief complaint: Skin/Abscess/Foreign Body Stated complaint: Rash Time Seen by Provider: 02/10/25 17:00 Source: patient Mode of arrival: ambulatory Limitations: no limitations History of Present Illness HPI narrative: 54-year-old female presented for complaint of an itchy rash on the face, neck, and arms. Onset 2 weeks. States rash started after doing yard work. Has used Benadryl and calamine lotion without significant improvement. Denies lip, tongue, or throat swelling, shortness of breath or wheezing. Denies changes to soap, detergent, lotion, or any other exposures. No one else in the house or any contacts with similar symptoms. Related Data Home Medications ?Medication ?Instructions ?Recorded ?Confirmed ?Last Taken ?Type azathioprine 50 mg tablet 50 mg PO DAILY 04/21/21 08/23/23 Unknown History budesonide 3 mg PO 04/21/21 Unknown History capsule,delayed,extended release metoprolol succinate 25 mg 25 mg PO DAILY 04/21/21 08/23/23 Unknown History tablet,extended release 24 hr montelukast 10 mg tablet mg 04/21/21 Unknown History potassium chloride 20 mEq meq PO 04/21/21 Unknown History tablet,extended release(part/cryst) (Klor-Con M) hydrocodone 7.5 mg-acetaminophen tablet 08/23/23 Unknown History 325 mg tablet amlodipine 2.5 mg tablet mg 02/10/25 Unknown History baclofen 10 mg tablet mg 02/10/25 Unknown History fluticasone propionate 50 intranasal 02/10/25 Unknown History mcg/actuation nasal spray,suspension metronidazole 0.75 % topical cream applic topical 02/10/25 Unknown History potassium chloride 20 mEq meq PO 02/10/25 Unknown History tablet,extended release Allergies Allergy/AdvReac Type Severity Reaction Status Date / Time sulfamethoxazole Allergy Severe THROAT Verified 02/10/25 16:23 SWELLING trimethoprim Allergy Severe THROAT Verified 02/10/25 16:23 SWELLING amoxicillin Allergy Intermediate SWELLING/RA Verified 02/10/25 16:23 SH cefadroxil Allergy Intermediate Rash Verified 02/10/25 16:23 latex Allergy Intermediate Other Verified 02/10/25 16:23 levofloxacin Allergy Intermediate FACIAL Verified 02/10/25 16:23 SWELLING lidocaine Allergy Intermediate THROAT Verified 02/10/25 16:23 SWELLING rifampin Allergy Intermediate Rash Verified 02/10/25 16:23 clarithromycin Allergy Mild SWELLING Verified 02/10/25 16:23 erythromycin base Allergy Mild SWELLING Verified 02/10/25 16:23 ofloxacin Allergy Mild RASH Verified 02/10/25 16:23 Penicillins Allergy Mild SWELLING Verified 02/10/25 16:23 adhesive Allergy Unknown Unknown Verified 02/10/25 16:23 morphine AdvReac Mild NAUSEA AND Verified 02/10/25 16:23 VOMITING POTASSIUM CLAVULANATE Allergy Intermediate SWELLING/RA Uncoded 02/10/25 16:23 SH dermabond Allergy Mild Rash Uncoded 02/10/25 16:23 Review of Systems Review of Systems: CONSTITUTIONAL: Denies body aches, fever, chills, or sweats. EYES: Denies visual changes, redness, or discharge. ENT: Denies rhinorrhea, congestion CARDIOVASCULAR: Denies chest pain, palpitations, or edema. RESPIRATORY: Denies cough or dyspnea. GASTROINTESTINAL: Denies abdominal pain, nausea, vomiting, or diarrhea. SKIN: per HPI MUSCULOSKELETAL: Denies back pain, joint pain, or myalgia. NEUROLOGIC: Denies headache, numbness, tingling, or weakness. [facility] Past Medical History Medical History (Updated 02/10/25 @ 17:06 by Catrina Jenkins, HILARY) History of hypertension History of Crohn's disease Social History Social History (Updated 03/24/24 @ 21:14 by Alycia Jackson PA-C) Substance use: never Comments At time of signature, I have reviewed and agree with nursing past medical, surgical, social and family history unless otherwise noted. Please see nursing chart for further information. There is no relevant family history pertinent to the presenting complaint Exam Narrative: GENERAL: Well-appearing HEAD: Normocephalic, atraumatic. EYES: conjunctivae clear, and EOMI. ENT: Mucous membranes moist. Oropharynx without edema, erythema or lesions. NECK: Supple. No lymphadenopathy CHEST: Clear to auscultation. HEART: Regular rate and rhythm. SKIN: Warm, dry. Scattered erythematous papules with raised base noted to left mandible/neck, and scattered over bilateral arms. Nontender, no drainage. NEURO: Alert and oriented x3. Course Course Emergency Course: Patient is aware of diagnosis, understands and agrees to treatment plan. Anticipatory guidance given. Patient agrees to follow-up as directed and is aware of reasons to seek care at the emergency department. Portions of this record may have been created with voice recognition software Level of Care: Express Care Visit Vital Signs Vital signs: Vital Signs Temperature 97.5 F L 02/10/25 16:23 Pulse Rate 73 02/10/25 16:23 Respiratory Rate 16 02/10/25 16:23 Blood Pressure 154/87 H 02/10/25 16:23 Pulse Oximetry 100 02/10/25 16:23 Oxygen Delivery Room Air 02/10/25 16:23 Temperature 97.5 F L 02/10/25 16:23 Pulse Rate 73 02/10/25 16:23 Respiratory Rate 16 02/10/25 16:23 Blood Pressure 154/87 H 02/10/25 16:23 Pulse Oximetry 100 02/10/25 16:23 Oxygen Delivery Room Air 02/10/25 16:23 Reviewed MDM - Skin/Abscess/Foreign Bdy MDM Narrative Medical decision making narrative: Discussed physical exam findings and reviewed RX. Advised supportive measures and signs/symptoms to go to the ER. Pt is appropriate for outpt treatment and f/u. Differential Diagnosis Differential diagnosis: Likely abscess of skin or subcutaneous tissue, viral exanthem, dermatophytosis, urticaria, herpes zoster, cellulitis, eczema, insect bites, impetigo and contact dermatitis Discharge Plan Discharge Clinical Impression: Contact dermatitis Patient Disposition: Home Condition: Stable Instructions: Antibiotic Form, Contact Dermatitis (ED) Additional Instructions: Wash the areas with gentle soap and water only. Use skin cream such as calamine, Alexandra dry, or Benadryl cream to reduce itchiness Avoid scratching when possible to prevent worsening of the condition and disruption of the skin that could lead to bacterial infection To relieve itching, place a cool washcloth or some ice over the area that itches, rather than scratching Follow up with primary care provider go to ER if rash worsens or for any worsening symptoms or concerns Patient Language: Tuvaluan Prescriptions: New methylprednisolone [Medrol (Giacomo)] 4 mg tablets,dose pack See Rx Instructions .ROUTE .COMPLEX Qty: 21 0RF Rx Instructions: orally per package directions No Action azathioprine 50 mg tablet 50 mg PO DAILY potassium chloride [Klor-Con M20] 20 mEq tablet,ER particles/crystals PO montelukast 10 mg tablet metoprolol succinate 25 mg tablet extended release 24 hr 25 mg PO DAILY budesonide 3 mg capsule,delayed,extend.release PO hydrocodone-acetaminophen 7.5-325 mg tablet amlodipine 2.5 mg tablet baclofen 10 mg tablet metronidazole 0.75 % cream TOPICAL fluticasone propionate 50 mcg/actuation spray,suspension INTRANASAL potassium chloride 20 mEq tablet extended release PO Follow-up/Referrals: Kaleb,Miah Waterman MD [Primary Care Provider] - Time of Disposition: 17:07
== END 2025-02-10 17:09 | disposition home or self-care (01) ==
PROVIDERS: Emergency Provider Nurse Practitioner Family; PCP Family Medicine
DX: L25.9 Unspecified contact dermatitis, unspecified cause (principal); I10 Essential (primary) hypertension; K50.90 Crohn's disease, unspecified, without complications
CPT/HCPCS: 99213; G0463

== ENCOUNTER 2025-05-13 08:30 | Outpatient (CLI) | payer MEDICARE, MEDICAID, SELFPAY ==
--- OUTSIDE RECORDS SUMMARY | 2025-05-13 08:46 | XMS_ITS | Clinical Summary ---
Author Organization [facility] Address [address] [place] [address] Phone Care Team Providers Care Assistant Pressman Name Role Phone Miah Manuel MD Primary [...] 10:35 AM CDT Height 167.6 cm (5' 6) 05/27/2018 10:35 AM CDT Body Mass Index 29.05 05/27/2018 10:35 AM CDT Plan of Treatment Health Maintenance Due Date Last Done Comments Hepatitis C Virus (HCV) Screening 1968 TdaP Immunization 1968 SARS-COV-2 Immunization (#1) 1973 Hepatitis B Immunization (1 of 3 - 19+ 3-dose series) 1987 Zoster Immunization (1 of 2) 1987 Pap Smear 1989 Cervical Cancer Screening (CCS) 1998 HPV/Cotest 1998 Cologuard 2013 Colonoscopy 2013 Colorectal Cancer Screening 2013 Immunochemical Fecal Occult Blood 2013 Pneumococcal Immunization (5 0+ years) (1 of 1 - PCV) 2018 Mammogram 08/29/2024 08/29/2023, 06/21/2021 Influenza Immunization (#1) 2025 Respiratory Syncytial Virus (RSV) Immunization (Adult) (1 - 1-dose 75+ series) 2043 Human Papillomavirus (HPV) Immunization Aged Out No longer eligible b ased on patient's age to complete this topic Meningococcal Immunization (ACWY) Aged Out No longer eligible b ased on patient's age to complete this topic Rotavirus Immunization Aged Out No lo nger eligible based on patient's age to complete this topic Procedures Procedure Name Priority Date/Time Associated Diagnosis Comments MIHAELA DIAG BILATERAL DIGITAL W CAD W JAIR Routine 08/29/2023 11:00 AM INTERFACE DESIGNER Painful breasts from Last 3 Months or Most Recently Relevant to Health Maintenance Results * MIHAELA DIAG BILATERAL DIGITAL W CAD W JAIR (08/29/2023 11:00 AM INTERFACE DESIGNER) Anatomical Region Laterality Modality breast Bilateral Mammography 08/29/2023 10:0 7 AM INTERFACE DESIGNER Addenda Addendum by Fady Morrison MD on 08/30/2023 4:11 PM INTERFACE DESIGNER THIS REPORT HAS BEEN AMENDED. AMENDMENT: 08/30/2023 [...] BILATERAL DIGITAL W CAD W JAIR - [facility] US BREAST LIMITED RYAN BILATERAL DIGITAL DIAGNOSTIC [...] made to exams dated: 02/27/2022, 07/11/2021, 06/21/2021 [facility], and 06/06/2017 [facility]. BREAST TISSUE:There are scattered fibroglandular densities in [...] signed by: Fady Morrison M.D. ll/:08/29/2023 11:31:03 Cnc Machinist 2Nd Shift(s): RT Bowen(R)(M), [facility]; Farrah Duran RDMS, [facility] letter sent: Normal Exam Reading location: [facility] OVERALL STUDY BIRADS: 2 Benign Narrative 08/30/2023 10:31 AM INTERFACE DESIGNER - MIHAELA DIAG BILATERAL DIGITAL W CAD [...] made to exams dated: 02/27/2022, 07/11/2021, 06/21/2021 [facility], and 06/06/2017 [facility]. BREAST TISSUE:There are scattered fibroglandular densities in [...] signed by: Fady Morrison M.D. ll/:08/29/2023 11:31:03 Cnc Machinist 2Nd Shift(s): RT Bowen(R)(M), [facility]; Farrah Duran RDMS, [facility] letter sent: Normal Exam Reading location: [facility] OVERALL STUDY BIRADS: 2 Benign [...] made to exams dated: 02/27/2022, 07/11/2021, 06/21/2021 [facility], and 06/06/2017 [facility]. BREAST TISSUE:There are scattered fibroglandular densities in [...] signed by: Fady Morrison M.D. ll/:08/29/2023 11:31:03 Cnc Machinist 2Nd Shift(s): RT Bowen(R)(M), [facility]; Farrah Duran RDMS, [facility] letter sent: Normal Exam Reading location: [facility] OVERALL STUDY BIRADS: 2 Benign Fredy Rutherford MD IMG MAMMO ORDERABLES Edite d Result - Final from Last 3 Months or Most Recently Relevant to Health Maintenance Insurance [place] [address] Care Teams Assistant Pressman Relationship Specialty Start Date End Date Miah Manuel MD [address] [place] [id number] PCP - General Family Medicine 04/30/18
--- OUTSIDE RECORDS SUMMARY | 2025-05-13 08:46 | XMS_ITS | Clinical Summary ---
Author Organization [facility] Address [address] [place] [address] Care Team Providers Care Windows Desktop Engineer Name Role Phone Miah Manuel Primary Care Provider [phone] Source Comments [facility],non-owned Affiliates and Associated Physician Practices is amultiple site organization consisting of ambulatory clinics and hospital sitesin [place], [place], [place] and [place]. This disclosure is being madepursuant to the Care Everywhere program and may not contain all information available regarding this patient. Last updated 18.[facility] Allergies Active Allergy Reactions Criticality Noted Date [...] Medium 02/08/2014 other [Other] Rash Medium 03/21/2017 Meraux Pineda Penicillins 01/14/2012 Rash and breathing Rifampin [...] times daily as needed. As needed Active Qekxu-Y-Xvlckkvwmhvm e (BEANO PO) Take by mouth once [...] Additional Information Patient not taking.Reason: Provider adjusted (electric plater said to stop taking), Reported on 01/28/2025 [...] 06/29/2022 08/10/2022 Upper respiratory infection 06/26/2022 07/13/2022 Family History Medical History Relation Name Comments [...] AM CDT Legal Sex Female 6:03 AM STAKING TECHNICIAN Gender Identity Female 02/25/2022 9:03 AM CDT [...] 10:12 AM CDT Height 167.6 cm (5' 6) 01/28/2025 10:12 AM CDT Body Mass Index 27.05 01/28/2025 10:12 AM CDT Plan of Treatment Upcoming Encounters Date Type Department Care Team (Late st Contact Info) Description 07/02/2025 9:30 AM CDT Appointment [facility] MRI [address] [place] [phone] Vijaya Coombs MD [address] [place] [address] 07/15/2025 12:30 PM CDT Office Visit [facility] - GI [address] [facility] [place] [address] Nazario Caldwell MD [facility] DIV [place] [address] 11/04/2025 10:40 AM STAKING TECHNICIAN Office Visit [facility] - General Dermatology [address] [place] [address] Bethany Johnson DO [address] [place] [address] Health Maintenance Due Date Last [...] HPV 1998 DEPRESSION SCREENING 09/23/2024 INFLUENZA VACCINE (#1) 2025 MAMMOGRAM 08/29/2025 08/29/2023, 12/0 03/2023, 06/21/2021 SCREENING FOR DIABETES 02/12/2026 , 06/29/2022, 05/02/2021, Additional history exists COLON MONITORING 07/22/2034 07/22/2024, [...] Not or Race: White _ Providers: [facility]Saint [facility] HospitalMD Referring MD: Miah Manuel (Referring MD) Procedure: [...] entire procedure. Procedure Code(s): --- Professional --- 78663, Colonoscopy, flexible; with removal of tumor(s), polyp(s), or other lesion(s) by snare technique 54517, 59, Colonoscopy, flexible; with biopsy, single or multiple Diagnosis Code(s): --- Professional --- K52.3, Indeterminate colitis D12.6, Benign neoplasm of colon, unspecified D12.5, Benign neoplasm of sigmoid colon Z98.0, Intestinal bypass and anastomosis status CPT copyright 2021 [employer]. All rights reserved. The codes documented in this report are preliminary and upon cpc coder review may be revised to meet current compliance requirements. Joie Smith MD ([place]) 07/22/2024 11:43:29 AM Note Initiated On: 07/22/2024 10:41 AM Number of Addenda: [id number] [place] [address] 07/22/2024 10:4 1 AM CDT Joie Smith MD GI PROCEDURE ORDERABLES E dited Result - Final Performing Organization Address [facility] Co de Phone Number [facility] * HEPATITIS C ANTIBODY (06/29/2022 12:58 PM CDT) Hepatitis C Antibody Non-react cora Carter-reac tive 06/29/2022 1:58 PM CDT [facility] Comment:Hepatitis C Antibody screen indicates no serologic [...] LAB - CHEMISTRY ORDERABLES Fin al Result Performing Organization Address [facility]/ZIP Co de Phone Number [address] [address], [place] [phone] * HEMOGLOBIN A1C (06/29/2022 11:57 AM CDT) Hemoglobin A1c 5.2 <=5.6 % 06/29/2022 2:06 PM CDT [facility] Estimated Average Glucose 103 mg/dL 06/29/2022 2:06 PM CDT [facility] Comment: HbA1c Interpretation: Normal : < 5.7% Pre-diabetes: 5.7-6.4% Diabetes: Equal to or greater than 6.5% Test results diagnostic of diabetes should be repeated for confirmation. Treatment target values recommended by ADA and other clinical organizations should be used to evaluate metabolic control in patients. Reference: [employer], Standards of Care in Diabetes [...] MD LAB - CHEMISTRY ORDERABLES Final Result [facility] [address] [place] [address], [facility] [phone] from Last 3 Months or Most Recently Relevant to Health Maintenance Insurance MEDICARE MEDICAID - [place] MEDICARE MEDICAID - OUT OF STATE Care Teams Windows Desktop Engineer Relationship Specialty Start Date End Date Maih Manuel [address] [place] [phone] PCP - General 04/11/18
--- OUTSIDE RECORDS SUMMARY | 2025-05-13 08:46 | XMS_ITS | Encounter Summary ---
Author Organization [facility] Address 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
--- OUTSIDE RECORDS SUMMARY | 2025-05-13 08:46 | XMS_ITS | Encounter Summary ---
Author Organization [facility] Address 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
--- OUTSIDE RECORDS SUMMARY | 2025-05-13 08:46 | XMS_ITS | Clinical Summary ---
Author Organization [facility] Address [address] [place] [address] Phone Care Team Providers Care Seat Nailer Name Role Phone Miah Manuel MD Primary Care Provider [phone] Allergies Active Allergy Reactions Criticality Noted Date [...] on file Legal Sex Female 10:50 PM TIER IN Gender Identity Not on file Sexual Orientation [...] 2:14 PM CDT Height 167.6 cm (5' 6) 04/29/2024 2:14 PM CDT Body Mass Index [...] Screening-Mammogram 08/29/2024 08/29/2023, 08/29/2023, 06/21/2021 Influenza Vaccine (#1) 2025 Medical Devices Implanted Type Area Senior Sql Database Developer Device Identifier Shelf Expiration Date Model / Serial / Lot Plate Plate N/A: Cervical-T horacic Spine Description:At C5-C6 Insurance MEDICARE [employer] Care Teams Seat Nailer Relationship Specialty Start Date End Date Miah Manuel MD [address] [place] [id number] PCP - General 09/17/12
--- OUTSIDE RECORDS SUMMARY | 2025-05-13 08:46 | XMS_ITS | Clinical Summary ---
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
--- OUTSIDE RECORDS SUMMARY | 2025-05-13 08:46 | XMS_ITS | Encounter Summary ---
Author Organization [employer] Address 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
--- OUTSIDE RECORDS SUMMARY | 2025-05-13 08:46 | XMS_ITS | Encounter Summary ---
Author Organization [facility] Address [address] [place] [address] Care Team Providers Care Ep Tech Name Role Phone Miah Manuel Primary Care Provider [phone] Encounter Details Date Type Department Care Team (Late st Contact Info) Description 07/12/2022 Patient Outreach [facility] [address] [place] [phone] Radha Spears, RN Social History Tobacco Use [...] AM CDT Legal Sex Female 6:03 AM CATERING ASSOCIATE Gender Identity Female 02/25/2022 9:03 AM CDT Sexual Orientation Not on file documented as of this encounter Functional Status * Is person deaf or have serious hearing difficulty? Answer Date of Assessment Author Yes 07/27/2020 2:55 PM CATERING ASSOCIATE Preston Castillo RN * Is person blind or have serious difficulty seeing? Answer Date of Assessment Author Yes 07/27/2020 2:55 PM CATERING ASSOCIATE Anna, Ja net, RN * Does person [...] Info) Description 07/02/2025 9:30 AM CDT Appointment [facility] [address] [place] [phone] Vijaya Coombs MD [address] [place] [address] 07/15/2025 12:30 PM CDT Office Visit [facility] - GI [address] [facility], [place] [address] Nazario Caldwell MD [address] [facility] 2L [place] [address] 11/04/2025 10:40 AM CATERING ASSOCIATE Office Visit [facility] - General Dermatology [address], [facility] [address] [place] [address] Bethany Johnson DO [address] [place] [address] documented as of this encounter [...] on filedocumented in this encounter Care Teams Ep Tech Relationship Specialty Start Date End Date Miah Manuel [address] [place] [phone] PCP - General 04/11/18 documented as of this encounter
[2025-05-13 10:23] LABS: Albumin Level 4.3 g/dL (3.5-5.1); Anion Gap 8 mmol/L (4-12); Blood Urea Nitrogen 6 mg/dL (7-17); Calcium 9.4 mg/dL (8.4-10.2); Carbon Dioxide 31 mmol/L (22-30); Chloride 97 mmol/L (98-107); Estimated Glomerular Filt Rate > 60; Glucose 101 mg/dL (65-110); Magnesium 1.4 mg/dL (1.6-2.3); Sodium 136 mmol/L (137-145)
[2025-05-13 10:24] LABS: Potassium 2.5 mmol/L (3.4-5.0)
== END 2025-05-13 08:31 | disposition home or self-care (01) ==
LOC: ANHLAB 08:34
PROVIDERS: PCP Family Medicine; Visit Provider Specialist
DX: E87.6 Hypokalemia (principal); E55.9 Vitamin D deficiency, unspecified; I10 Essential (primary) hypertension
CPT/HCPCS: 36415; 80069; 82306; 83735

== ENCOUNTER 2025-07-23 15:52 | Emergency (ER) | payer MEDICARE, MEDICAID, SELFPAY ==
--- NOTE | ~2025-07-23 | XR_ITS ---
XR forearm LT 2V INDICATION: pain COMPARISON: None FINDINGS: Two views of the left forearm demonstrate no acute fracture or dislocation. IMPRESSION: No acute fracture or dislocation. Reviewed, dictated and finalized at location S.
--- NOTE | ~2025-07-23 | US_ITS ---
EXAMINATION: US venous doppler [facility] DATE: 07/23/2025 19:09 INDICATION: Left upper limb pain, swelling and bruising TECHNIQUE: Grayscale images without and with compression and Doppler images of the left upper extremity veins were obtained. COMPARISON: None. FINDINGS: The left internal jugular vein, subclavian vein, axillary vein, brachial vein, basilic vein, cephalic vein, radial vein, and ulnar vein are patent. IMPRESSION: 1. Patent left upper extremity veins. No evidence of venous thrombosis. Reviewed, dictated and finalized at location A.
--- NOTE | ~2025-07-23 | XR_ITS ---
XR wrist LT min 3V INDICATION: pain, fall . COMPARISON: None. FINDINGS: Frontal, lateral and oblique views of the left wrist were obtained. No acute fracture is seen. IMPRESSION: No acute fracture or dislocation. Reviewed, dictated and finalized at location S.
--- OUTSIDE RECORDS SUMMARY | 2025-07-23 15:54 | XMS_ITS | Clinical Summary ---
Author Organization [facility] Address [address] [place] [address] Phone Care Team Providers Care Link Trainer Maintenance Worker Name Role Phone Miah Manuel MD Primary [...] Years Used Date Smoking Tobacco: Former Cigarettes 0 Q uit: 04/26/2007 Smokeless Tobacco: Never Comments [...] Screening 2013 Immunochemical Fecal Occult Blood 2013 Medicare Initial AWV [id number] 01/21/2014 Pneumococcal Immunization (5 0+ years) (1 of [...] CAD W JAIR Routine 08/29/2023 11:00 AM SINKER PULLER Painful breasts from Last 3 Months or Most Recently Relevant to Health Maintenance Results * MIHAELA DIAG BILATERAL DIGITAL W CAD W JAIR (08/29/2023 11:00 AM SINKER PULLER) Anatomical Region Laterality Modality breast Bilateral Mammography 08/29/2023 10:0 7 AM SINKER PULLER Addenda Addendum by Fady Morrison MD on 08/30/2023 4:11 PM SINKER PULLER THIS REPORT HAS BEEN AMENDED. AMENDMENT: 08/30/2023 [...] BILATERAL DIGITAL W CAD W JAIR - [facility] US BREAST LIMITED RYAN BILATERAL DIGITAL [...] made to exams dated: 02/27/2022, 07/11/2021, 06/21/2021 [facility], and 06/06/2017 [facility]. BREAST TISSUE:There are scattered fibroglandular [...] signed by: Fady Morrison M.D. ll/:08/29/2023 11:31:03 Mid Level Business Analyst(s): RT Bowen(R)(M), [facility]; Farrah Duran RDMS, [facility] letter sent: Normal Exam Reading location: [facility] OVERALL STUDY BIRADS: 2 Benign Narrative 08/30/2023 10:31 AM SINKER PULLER - MIHAELA DIAG BILATERAL DIGITAL W CAD [...] made to exams dated: 02/27/2022, 07/11/2021, 06/21/2021 [facility], and 06/06/[address] [place] [address]. BREAST TISSUE:There are scattered fibroglandular densities in [...] signed by: Fady Morrison M.D. ll/:08/29/2023 11:31:03 Mid Level Business Analyst(s): RT Bowen(R)(M), [facility]; Farrah Duran RDMS, [facility] letter sent: Normal Exam Reading location: [facility] OVERALL STUDY BIRADS: 2 Benign Procedure [...] made to exams dated: 02/27/2022, 07/11/2021, 06/21/2021 [facility], and 06/06/2017 [facility]. BREAST TISSUE:There are scattered fibroglandular [...] signed by: Fady Morrison M.D. ll/:08/29/2023 11:31:03 Mid Level Business Analyst(s): RT Bowen(R)(M), [facility]; Farrah Duran RDMS, [facility] letter sent: Normal Exam Reading location: [facility] OVERALL STUDY BIRADS: 2 Benign Fredy Rutherford MD IMG MAMMO ORDERABLES Edite d Result - Final from Last 3 Months or Most Recently Relevant to Health Maintenance Insurance MEDICARE [place] Care Teams Link Trainer Maintenance Worker Relationship Specialty Start Date End Date Miah Manuel MD [address] [place] [id number] PCP - General Family Medicine 04/30/18
--- OUTSIDE RECORDS SUMMARY | 2025-07-23 15:54 | XMS_ITS | Encounter Summary ---
Author Organization [facility] Address [address] [facility] [address] 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 Answer Date of Assessment Author Yes 07/27/2020 2:55 PM SNOW PLOW OPERATOR Preston Castillo RN * Is person blind or have serious difficulty seeing? Answer Date of Assessment Author Yes 07/27/2020 2:55 PM Preston Pickard RN * Does person have serious difficulty [...] Upcoming Encounters Date Type Department Care Team (Latest Contact Info) Description 10/13/2025 11:15 AM SNOW PLOW OPERATOR Hospital Encounter [facility] [address] [place] [address] Joie Smith MD [address] [place] [address] [address] [place] [address] Surgery General 10/13/2025 11:15 AM SNOW PLOW OPERATOR - 10/13/2025 12:00 PM SNOW PLOW OPERATOR Surgery [facility] [address] [place] [address] Joie Smith MD [address] [place] [address] [address] [place] [address] COLONOSCOPY SCREEN--w/ Sarah 11/04/2025 10:40 AM SNOW PLOW OPERATOR Office Visit [facility] - General Dermatology [address], [facility] [address] [place] [address] Bethany Johnson DO [address] [place] [phone] 01/13/2026 10:00 AM CDT [facility] [address] [facility] [place] [address] Scheduled Procedures Name Priority Associated Diagnoses Date/Ti me COLONOSCOPY SCREEN Crohn's disease of small intestine without complication (HCC) 10/13/2025 11:15 AM SNOW PLOW OPERATOR documented as of this encounter Goals Goal Patient Goal Type Associated Problems Recent Progress Patient-Stated? Author Safety General On track( 023 8:29 AM CDT) No Nneka See, RN Note: Expected end date: Ongoing Interventions: Your nurse will assess your risk for falls/injury each visit Use appropriate and safe transfer methods Medication Management General On track( 025 10:10 AM CDT) No Nneka See, RN Note: Expected end date: Ongoing Interventions: Take all medications as prescribed Let your doctor know right away about any changes in your medications documented as of this encounter Visit Diagnoses Not on filedocumented in this encounter Care Teams Property Administrator Relationship Specialty Start Date End Date Miah Manuel [address] [place] [phone] PCP - General 04/11/18 documented as of this encounter
--- OUTSIDE RECORDS SUMMARY | 2025-07-23 15:55 | XMS_ITS | Encounter Summary ---
Author Organization [employer] Address [address] [place] [address] Care Team Providers Care Wellness Program Coordinator Name Role Phone Unavailable Primary Care Provider Unavailabl e Encounter Details Date Type Department Care Team (Late st Contact Info) Description 10/22/2001 Outpatient Historical [place] [address] [place] [address] CERVICALGIA (Primary Dx) Social History Tobacco Use Types Packs/Day Years Used Date Smoking Tobacco: Never Assessed Comments Unknown Sex and Gender Information Value Date Recorded Sex Assigned at Not on file Legal Sex Female 5:09 AM WORKFORCE MANAGEMENT MANAGER Gender Identity Not on file Sexual Orientation Not on file documented as of this encounter Plan of Treatment Not on file documented as of this encounter Visit Diagnoses Diagnosis Cervicalgia- Primary documented in this encounter
--- OUTSIDE RECORDS SUMMARY | 2025-07-23 15:55 | XMS_ITS | Encounter Summary ---
Author Organization [employer] Address [address] [place] [address] Care Team Providers Care Swahili Teacher Name Role Phone Unavailable Primary Care Provider Unavailabl e Encounter Details Date Type Department Care Team (Late st Contact Info) Description 05/15/2004 Emergency [facility] uAstin Tripp DO [address] [place] [address] Er, Authorized P NO ADDRESS ON FILE SPRAIN OF NECK (Primary Dx) Social History Tobacco Use Types Packs/Day Years Used Date Smoking Tobacco: Never Assessed Comments Unknown Sex and Gender Information Value Date Recorded Sex Assigned at Not on file Legal Sex Female 5:09 AM BLEACH MAKER Gender Identity Not on file Sexual Orientation Not on file documented as of this encounter Plan of Treatment Not on file documented as of this encounter Visit Diagnoses Diagnosis Sprain of neck- Primary documented in this encounter
--- OUTSIDE RECORDS SUMMARY | 2025-07-23 15:55 | XMS_ITS | Clinical Summary ---
Author Organization [facility] Address [address] [place] [address] Phone Care Team Providers Care Canvas Goods Maker Name Role Phone Miah Manuel MD Primary Care Provider [phone] Allergies Active Allergy Reactions Criticality Noted Date [...] 02/07/2023 Bronchial asthma 07/09/2011 Former smoker 07/06/2011 Encounters Date Type Department Care Team Description 07/06/2025 Telephone [place] [facility] at [address] [place] [phone] Joan Zaidi from Last 3 Months Surgical History Surgery Date Site/Laterality Comments LAPAROSCOPY [...] on file Legal Sex Female 10:50 PM MASONRY INSTRUCTOR Gender Identity Not on file Sexual Orientation [...] (#1) 2025 Medical Devices Implanted Type Area Overcaster Device Identifier Shelf Expiration Date Model / Serial / Lot Plate Plate N/A: Cervical-T horacic Spine Description:At C5-C6 Insurance MEDICARE [facility] Care Teams Canvas Goods Maker Relationship Specialty Start Date End Date Miah Manuel MD [address] [place] [phone] PCP - General 09/17/12
--- OUTSIDE RECORDS SUMMARY | 2025-07-23 15:55 | XMS_ITS | Clinical Summary ---
Author Organization [facility] Address [address] [facility] Attn: Epic Prelude ADT ANTHONY MAHMOOD [address] Care Team Providers Care School Counselor Name Role Phone Unavailable Primary Care Provider Unavailabl e Social History Tobacco Use Types Packs/Day Years Used Date Smoking Tobacco: Never Assessed Comments Unknown Sex and Gender Information Value Date Recorded Sex Assigned at Not on file Legal Sex Female 5:09 AM METAL ANNEALER Gender Identity Not on file Sexual Orientation [...]
--- OUTSIDE RECORDS SUMMARY | 2025-07-23 15:55 | XMS_ITS | Data Portability ---
Author Organization [facility] SYLVIANathaniel Address [address] [facility] / [place] [address] Care Team Providers Care Supervising Editor Trailer Name Role Phone MIAH MANUEL Primary Care Provider Assessment No assessment recorded. Plan of Treatment Reminders Order Date Submit Date Provider Last Modified By Organization Details Last Modified Time Details Appointments ANY 15 2024 09:45A Ifrah Manuel MD Not available Not available Not available ANY 30 2025 10:00A Ifrah Zheng MD Not available Not available Not available Lab drug screen , urine 2024 025 [facility] In-Office Order, Internal Use Only DO Not Attach Compendium DO Not Attach Compendium, Do Not Delete/merge, [id number] 07/05/2025 12:33:03 magnes ium, serum or plasma [address] Outpatient Registration Lab/Ekg, [address], [place], [address], 05/18/2025 11:36:22 renal functi on panel, serum [address] Outpatient Registration Lab/Ekg, [address], [place], [address], 05/18/2025 11:36:22 vitami n D, 25-hyd tien, total, serum 2024 025 [facility] Outpatient Registration Lab/Ekg, [address], [place], [address], 05/03/2025 03:05:49 cortis ol, am, serum [address] Outpatient Registration Lab/Ekg, [address], [place], [address], 03/15/2025 12:24:11 aldost erone/ renin activi ty, ratio, plasma [address] Outpatient Registration Lab/Ekg, [address], [place], [address], 03/15/2025 12:24:11 TSH, ultra- sensit cora, serum [address] Outpatient Registration Lab/Ekg, [address], [place], [address], 03/15/2025 12:24:11 magnes ium, serum or plasma 2024 [facility] Outpatient Registration Lab/Ekg, [address], [place], [address], 05/03/2025 03:05:48 renal functi on panel, serum 2024 [facility] Outpatient Registration Lab/Ekg, [address], [place], [address], 05/03/2025 03:05:48 Referral cardio logist referr al 2024 025 PARIS Jenkins MD, [address] [facility] [place], [address], 07/05/2025 11:20:42 cardio logist referr al 2024 025 flori Jenkins MD, [address] [place], [address], 03/08/2025 12:55:02 Procedures None record ed. Surgeries None record ed. Imaging US, duplex , renal artery 2024 025 [email or web address] [facility], [address], [place], [address], 07/21/2025 16:23:33 Medication Orders magnes ium oxide 400 mg (241.3 mg magnes ium) tablet 2024 025 [id number] [address] [place], [address], 05/18/2025 11:36:27 amlodi pine 10 mg tablet 2024 025 [id number] [address] [place], [address], 05/05/2025 12:22:07 albute rol sulfat e HFA 90 mcg/ac tuatio n aeroso l inhale r 2024 025 [facility] [address] [place], [address], 05/05/2025 12:17:13 hydroc odone 7.5 mg-joo tamino phen 325 mg tablet 2024 025 [id number] [address] [place], [address], 05/05/2025 12:17:13 lidoca ine 5 % topica l cream 2024 025 [facility] [address] [place], [address], 05/19/2025 05:02:31 albute rol sulfat e HFA 90 mcg/ac tuatio n aeroso l inhale r 2024 025 [facility]acy #[id number], [address] [place], [address], 03/05/2025 11:09:13 cephal exin 500 mg tablet 2024 025 [id number] [address] [place], [address], 03/19/2025 05:02:03 isosor bide mononi trate ER 30 mg tablet ,exten ded releas e 24 hr 2024 025 [id number] [address] [place], [address], 07/05/2025 11:12:36 lidoca ine 5 % topica l cream 2024 025 [id number] [address] [place], [address], 05/19/2025 05:02:31 ergoca lcifer ol (vitam in D2) 50 mcg (2,000 unit) tablet 2024 025 [facility] [address] [place], [address], 02/16/2025 11:25:17 amlodi pine 5 mg tablet 2024 025 [id number] [address] [place], [address], 07/05/2025 11:09:11 Patient TargetsNo targets recorded. Patient Instructions Encounter Date Encounter Id Patient Instructions Last Modified By Organization Details Last Modified Time 03/05/2025 [id number] A healthy lifestyle: care instructions Not available 03/05/2025 11:09:08 advance care planning: care instructions Not available 03/05/2025 11:09:08 preventing falls : care instructions Not available 03/05/2025 11:09:08 Quitting Tobacco : Care Instructions Not available 03/05/2025 11:09:08 Medicare [facility] Preventive Checklist Not available 03/05/2025 11:09:08 eating healthy foods: care instructions Not available 03/05/2025 11:09:08 AD8 Dementia Screening Interview Not available 03/05/2025 11:09:08 chronic obstructive pulmonary disease (COPD): care instructions Not available 03/05/2025 11:09:08 learning about copd and how to prevent lung infections Not available 03/05/2025 11:09:08 leg and ankle edema: care instructions Not available 03/05/2025 11:09:08 upper respirator y infection (cold): care instructions Not available 03/05/2025 11:09:08 learning about high blood pressure Not available 03/05/2025 11:09:08 hypokalemia: car e instructions Not available 03/05/2025 11:09:08 05/05/2025 [id number] A healthy lifestyle: care instructions Not available 05/05/2025 12:17:11 learning about high blood pressure Not available 05/05/2025 12:17:10 chronic obstructive pulmonary disease (COPD): care instructions Not available 05/05/2025 12:17:10 learning about copd and how to prevent lung infections Not available 05/05/2025 12:17:10 advance care planning: care instructions Not available 05/05/2025 12:17:10 preventing falls : care instructions Not available 05/05/2025 12:17:11 Quitting Tobacco : Care Instructions Not available 05/05/2025 12:17:10 [facility] Preventive Checklist Not available 05/05/2025 12:17:11 eating healthy foods: care instructions Not available 05/05/2025 12:17:10 AD8 Dementia Screening Interview Not available 05/05/2025 12:17:10 hypokalemia: car e instructions Not available 05/05/2025 12:17:10 07/05/2025 [id number] chest pain: care instructions Not available 07/05/2025 11:08:47 A healthy lifestyle: care instructions Not available 07/05/2025 11:08:47 chronic obstructive pulmonary disease (COPD): care instructions Not available 07/05/2025 11:08:47 learning about copd and how to prevent lung infections Not available 07/05/2025 11:08:47 crohn's disease: care instructions Not available 07/05/2025 11:08:47 hypokalemia: car e instructions Not available 07/05/2025 11:08:47 Reason for Referral Gallery Manager Referral for At ypical chest pain Referring Physician: Miah Manuel [facility], Encounter Date: 03/05/2025 Gallery Manager Referral for Ch est pain Referring Physician: Miah Manuel [facility], Encounter Date: 07/05/2025 Results Created Date Observation Date Name Description Value Unit Range Abnormal Flag Note LastModifiedBy Organization Detail LastModifiedTime 07/05/2007/05/2025 drug scree n, urine Amphetamine (AMP) Negati ve Not Available In-Office Order Internal Use Only DO Not Attach Compendium DO Not Attach Compendium, Do Not Delete/merge, [id number] 07/05/2025 10:36:16 07/05/2007/05/2025 drug scree n, urine Barbiturates (BAR) Negati ve Not Available In-Office Order Internal Use Only DO Not Attach Compendium DO Not Attach Compendium, Do Not Delete/merge, [id number] 07/05/2025 10:36:16 07/05/2007/05/2025 drug scree n, urine Buprenorphin e (BUP) Negati ve Not Available In-Office Order Internal Use Only DO Not Attach Compendium DO Not Attach Compendium, Do Not Delete/merge, [id number] 07/05/2025 10:36:16 07/05/2007/05/2025 drug scree n, urine Benzodiazepi kate (BZO) Negati ve Not Available In-Office Order Internal Use Only DO Not Attach Compendium DO Not Attach Compendium, Do Not Delete/merge, [id number] 07/05/2025 10:36:16 07/05/2007/05/2025 drug scree n, urine Cocaine (EZEQUIEL) Negati ve Not Available In-Office Order Internal Use Only DO Not Attach Compendium DO Not Attach Compendium, Do Not Delete/merge, 07/05/2025 10:36:16 07/05/2007/05/2025 drug scree n, urine Ecstasy (MDMA) Negati ve Not Available In-Office Order Internal Use Only DO Not Attach Compendium DO Not Attach Compendium, Do Not Delete/merge, 07/05/2025 10:36:16 07/05/2007/05/2025 drug scree n, urine Norfentanyl (FYL) Negati ve Not Available In-Office Order Internal Use Only DO Not Attach Compendium DO Not Attach Compendium, Do Not Delete/merge, 07/05/2025 10:36:16 07/05/2007/05/2025 drug scree n, urine Marijuana (THC) Negati ve Not Available In-Office Order Internal Use Only DO Not Attach Compendium DO Not Attach Compendium, Do Not Delete/merge, 07/05/2025 10:36:16 07/05/2007/05/2025 drug scree n, urine Methamphetam ine (MET) Negati ve Not Available In-Office Order Internal Use Only DO Not Attach Compendium DO Not Attach Compendium, Do Not Delete/merge, 07/05/2025 10:36:16 07/05/2007/05/2025 drug scree n, urine Methadone (MTD) Negati ve Not Available In-Office Order Internal Use Only DO Not Attach Compendium DO Not Attach Compendium, Do Not Delete/merge, 07/05/2025 10:36:16 07/05/2007/05/2025 drug scree n, urine Morphine (MOR) Negati ve Not Available In-Office Order Internal Use Only DO Not Attach Compendium DO Not Attach Compendium, Do Not Delete/merge, 07/05/2025 10:36:16 07/05/2007/05/2025 drug scree n, urine Opiates (OPI) Positi ve Not Available In-Office Order Internal Use Only DO Not Attach Compendium DO Not Attach Compendium, Do Not Delete/merge, 07/05/2025 10:36:16 07/05/2007/05/2025 drug scree n, urine Oxycodone (OXY) Negati ve Not Available In-Office Order Internal Use Only DO Not Attach Compendium DO Not Attach Compendium, Do Not Delete/merge, [id number] 07/05/2025 10:36:16 07/05/2007/05/2025 drug scree n, urine Phencyclidin e (PCP) Negati ve Not Available In-Office Order Internal Use Only DO Not Attach Compendium DO Not Attach Compendium, Do Not Delete/merge, [facility] 07/05/2025 10:36:16 07/05/2007/05/2025 drug scree n, urine Propoxyphene (PPX) Negati ve Not Available In-Office Order Internal Use Only DO Not Attach Compendium DO Not Attach Compendium, Do Not Delete/merge, [facility] 07/05/2025 10:36:16 07/05/2007/05/2025 drug scree n, urine Tricyclic Antidepressa nts (TCA) Negati ve Not Available In-Office Order Internal Use Only DO Not Attach Compendium DO Not Attach Compendium, Do Not Delete/merge, [facility] 07/05/2025 10:36:16 07/05/2007/05/2025 drug scree n, urine Tramadol (TML) Negati ve Not Available In-Office Order Internal Use Only DO Not Attach Compendium DO Not Attach Compendium, Do Not Delete/merge, [id number] 07/05/2025 10:36:16 Result Notes None recorded. Problems Name Problem SNOMED Code Status Onset Date Resolution Date Notes Provider Name and Address Organization Details Recorded Time Essential hypertension 61880716 Active Miah Manuel MD Attn: Accounting, [address] [place], [address], [facility] 6 11:17:31 Chronic obstructive pulmonary disease 06455744 Active Little Hernandez LPN null, [place] - [facility] 6 17:46:53 Crohn's disease 07277097 Active Miah Mnauel MD Attn: Accounting, [address] [place], [address], [place] - [facility] 6 11:17:31 Allergic rhinitis 72732726 Active Miah Manuel MD Attn: Accounting, [address] [facility], [place], [address], [place] [facility] 6 11:17:31 Gastroesopha geal reflux disease 244705554 Active Miah Manuel MD Attn: Accounting, [address] [facility], [place], [address], [place] [facility] 6 11:17:31 Osteoarthrit is 439450332 Active Miah Manuel MD Attn: Accounting, [address] [facility], [place], [address], [place] - [facility] 6 11:17:31 Acute bronchitis 50915795 Active Miah Manuel MD Attn: Accounting, [address] [facility], [place], [address], [place] [facility] 6 11:49:17 Otitis externa 5807834 Active Miah Manuel MD Attn: Accounting, [address] [facility], [place], [address], [place] [facility] 6 11:49:17 Anxiety 60281384 Active Miah Manuel MD Attn: Accounting, [address] [facility], [place], [address], [place] - [facility] 6 11:17:31 Low back pain 989792313 Active 2021 Sarahy Mckeon MA null, [place] - [facility] 2 13:16:02 Thoracic back pain 719268429 Active 2021 Sarahy Mckeon MA null, [place] - [facility] 2 10:23:27 Alopecia 97237956 Active 2021 Sarhay Mckeon MA null, [place] - [facility] 2 10:23:39 Upper respiratory infection 84845024 Active 2021 Miah Manuel MD Attn: Accounting, [address] [place], [address], [place] - [facility] 2 16:19:45 Hypokalemia 67658527 Active 2022 GENTRY Ling, [place] - [facility] 3 10:11:47 Problem Notes None recorded. Medical Equipment None Reported. Allergies Allergen ID Allergen Name Allergen Category Reaction Reaction Severity Criticality Documentation Date Start Date Code Code System Note Provider Name and Address Organization Details Recorded Time 591375 Bactrim medicatio n Not available Not available Not available 08/18/2024 90862 9 RxNorm Monica Van LPN null, [place] - [facility] 4 12:41:40 263463 latex environme nt,medica tion rash Not available high 08/18/2024 12439 91 RxNorm GENTRY Ray, [place] - [facility] 5 15:34:22 887971 amoxicill in medicatio n rash swelling Not available Not available high 12/08/2024 723 RxNorm GENTRY Ray, [place] - [facility] 5 15:33:56 980714 amoxicill in / clavulana te medicatio n itching swelling Not available Not available low 12/08/20242013 75968 RxNorm GENTRY Ray, [place] - [facility] 5 15:34:02 392136 cefadroxi l medicatio n rash Not available high 12/08/20242016 2177 RxNorm GENTRY Ray, [place] [facility] 5 15:34:04 940845 cefdinir medicatio n rash swelling Not available Not available high 12/08/20242017 65779 RxNorm GENTRY Ray, [place] - [facility] 5 15:34:06 696824 ciproflox acin medicatio n rash Not available high 12/08/20242015 2551 RxNorm GNETRY Ray, [place] - [facility] 5 15:34:08 069266 erythromy handy medicatio n rash swelling Not available Not available high 12/08/2024 4053 RxNorm GENTRY Ray, [place] - [facility] 5 11:31:18 746760 levofloxa handy medicatio n rash swelling Not available Not available high 12/08/2024 95768 RxNorm GENTRY Ray, [place] [facility] 5 11:31:32 331748 lidocaine medicatio n swelling Not available high 12/08/2024 6387 RxNorm GENTRY Ray, [place] [facility] 5 11:31:35 275142 ofloxacin medicatio n itching rash swelling Not available Not available Not available high 12/08/20242013 7623 RxNorm GENTRY Ray, [place] [facility] 5 15:34:38 654880 rifampin medicatio n rash Not available high 12/08/2024 9384 RxNorm GENTRY Ray, [place] [facility] 5 11:31:39 520770 sulfameth oxazole / trimethop rim medicatio n Not available Not available Not available 12/08/20242019 93315 RxNorm unrec ogniz ed react ion (text : Other , code: 95325 07) (from exter nal sourc e) GENTRY Ray, [place] - [facility] 5 15:35:02 364733 trimethop rim medicatio n rash swelling Not available Not available high 12/08/2024 22991 RxNorm GENTRY Ray, [place] - [facility] 5 15:35:07 168127 sulfameth oxazole medicatio n rash swelling Not available Not available high 01/08/2025 59145 RxNorm GENTRY Ray, [place] - [facility] 5 11:31:43 033175 Nitrate salt (substanc e) food,medi cation headache moderate Not available 05/05/2025 33819 000 SNOMED Miah Manuel MD Attn: Accountmiguel g,[address] [facility], [place], [address], [facility] - [facility] 5 12:22:43 54106 Product containin g penicilli n (product) medicatio n rash swelling Not available Not available Not available 11/03/20142017 50495 8001 SNOMED Braden Burris MA null, [place] - [facility] 5 15:34:45 74243 azithromy handy medicatio n Not available Not available Not available 11/03/2014 01308 RxNorm Samina Alvarado MA null, [place] - [facility] 5 12:37:00 06398 sulfameth oxazole / trimethop rim medicatio n Not available Not available Not available 11/03/2014 07675 RxNorm Samina Alvarado MA null, [place] - [facility] 5 12:37:00 17096 Levaquin medicatio n Not available Not available Not available 11/03/2014 98133 2 RxNorm Samina Alvarado MA null, [place] - [facility] 5 12:37:00 Medications Name Sig Start Date Stop Date Status Note LastModified by Organization Details LastModified Time cyclobenz aprine 10 mg tablet Take 1 tablet twice a day by oral route as directed for 90 days. 09/30 completed Not Available Not Available Not Available venlafaxi ne ER 37.5 mg capsule,e xtended release 24 hr TAKE 1 CAPSULE BY MOUTH EVERY DAY 07/05 completed Not Available Not Available Not Available prednison e 10 mg tablet 07/05 completed Not Available Not Available Not Available rabeprazo le 20 mg tablet,de layed release Take 1 tablet every day by oral route for 90 days. 07/05 completed Not Available Not Available Not Available cefuroxim e axetil 250 mg tablet TAKE 1 TABLET BY MOUTH EVERY 12 HOURS FOR 10 DAYS 09/30 completed Not Available Not Available Not Available albuterol sulfate 2.5 mg/3 mL (0.083 %) solution for nebulizat ion INHALE 1 VIAL VIA NEBULIZE R THREE TIMES DAILY NEEDED active Not Available Not Available No t Available loperamid e 2 mg capsule 07/05 completed Not Available Not Available Not Available cetirizin e 10 mg tablet Take 1 tablet every day by oral route for 90 days. 07/05 completed Not Available Not Available Not Available lidocaine 5 % topical cream Apply 1 applicat ion 3 times a day by topical route for 7 days. 05/19 completed Not Available Not Available Not Available benzonata te 200 mg capsule 200 MG ORALLY THREE TIMES A DAY NEEDED FOR COUGH 09/30 completed Not Available Not Available Not Available cephalexi n 250 mg capsule Take 1 capsule twice a day by oral route for 10 days. 09/30 completed Not Available Not Available Not Available ondansetr on HCl 4 mg tablet TAKE 1 TABLET BY MOUTH EVERY 6 HOURS active Not Available Not Available No t Available prednison e 20 mg tablet TAKE 2 TABLETS BY MOUTH EVERY DAY FOR 5 DAYS 07/05 completed Not Available Not Available Not Available isosorbid e mononitra te ER 30 mg tablet,ex tended release 24 hr TAKE 1 TABLET BY MOUTH EVERY DAY FOR 30 DAYS 07/05 completed Not Available Not Available Not Available Debrox 6.5 % ear drops INSTILL 5 DROPS INTO AFFECTED EAR(S) BY OTIC ROUTE 2 TIMES PER DAY 09/30 completed Not Available Not Available Not Available permethri n 5 % topical cream APPLY (THOROUG HLY MASSAGE INTO SKIN FROM HEAD TO SOLES OF FEET) BY TOPICAL ROUTE ONCE LEAVE ON FOR 8-14 HR, THEN REMOVE BY THOROUGH WASHING 07/05 completed Not Available Not Available Not Available diphenoxy late-atro pine 2.5 mg-0.025 mg tablet 09/30 completed Not Available Not Available Not Available amlodipin e 2.5 mg tablet TAKE 1 TABLET BY MOUTH EVERY DAY FOR 30 DAYS 02/16 completed Not Available Not Available Not Available metronida zole 500 mg tablet active Not Available Not Available No t Available azathiopr ine 50 mg tablet TAKE 1 AND 1/2 TABLETS BY MOUTH EVERY DAY active Not Available Not Available No t Available amlodipin e 5 mg tablet Take 1 tablet every day by oral route at noon for 90 days, for 90. 07/05 completed Not Available Not Available Not Available pantopraz ole 20 mg tablet,de layed release Take one tablet by mouth daily 07/05 completed Not Available Not Available Not Available meloxicam 7.5 mg tablet 02/16 completed Not Available Not Available Not Available Tessalon Perles 100 mg capsule Take 1 capsule 3 times a day by oral route for 10 days. 07/05 completed Not Available Not Available Not Available alprazola m 0.25 mg tablet Take 1 tablet twice a day by oral route for 2 days. 09/30 completed Not Available Not Available Not Available potassium chloride ER 20 mEq tablet,ex tended release(p art/cryst ) TAKE 1 TABLET BY MOUTH EVERY DAY 02/16 completed pt tking bid Not Available Not Available Not Available magnesium oxide 400 mg (241.3 mg magnesium ) tablet TAKE 1 TABLET BY ORAL ROUTE IN THE MORNING FOR 90 DAYS. active Not Available Not Available No t Available triamcino lone acetonide 0.1 % dental paste APPLY IN MOUTH ONCE DAILY 07/05 completed Not Available Not Available Not Available baclofen 10 mg tablet TAKE 1 TABLET TWICE A DAY BY ORAL ROUTE FOR 90 DAYS. active Not Available Not Available No t Available amlodipin e 10 mg tablet TAKE 1 TABLET BY MOUTH EVERY DAY active Not Available Not Available No t Available hydrocodo ne 7.5 mg-acetam inophen 325 mg tablet TAKE 1 TABLET BY MOUTH TWICE A DAY active Not Available Not Available No t Available cephalexi n 500 mg capsule TAKE 1 CAPSULE BY MOUTH THREE TIMES A DAY FOR 7 DAYS active Not Available Not Available No t Available pantopraz ole 40 mg tablet,de layed release Take 1 tablet every day by oral route for 90 days. 07/05 completed Not Available Not Available Not Available nortripty line 10 mg capsule 07/05 completed Not Available Not Available Not Available prednison e 50 mg tablet TAKE 1 TABLET BY MOUTH EVERY DAY FOR 4 DAYS 07/05 completed Not Available Not Available Not Available metronida zole 0.75 % topical cream APPLY TO THE AFFECTED AREA ON FACE TWICE DAILY active Not Available Not Available No t Available Advair Diskus 250 mcg-50 mcg/dose powder for inhalatio n Inhale 1 puff twice a day by inhalati on route for 30 days. 08/18 completed Not Available Not Available Not Available bupropion HCl 75 mg tablet 09/30 completed Not Available Not Available Not Available gabapenti n 300 mg capsule Take 1 capsule 3 times a day by oral route for 30 days. 02/16 completed not taking Not Available Not Available Not Available cephalexi n 500 mg tablet Take 1 tablet 3 times a day by oral route for 7 days. 03/19 completed Not Available Not Available Not Available monteluka st 10 mg tablet TAKE 1 TABLET BY MOUTH EVERY DAY active Not Available Not Available No t Available codeine 10 mg-guaife nesin 100 mg/5 mL oral liquid TAKE 5 ML ORALLY EVERY 6 HOURS NEEDED FOR COUGH 07/05 completed Not Available Not Available Not Available lisinopri l 5 mg tablet TAKE ONE TABLET BY MOUTH DAILY 08/18 completed pt has not taken this med for many yrs. Not Available Not Available Not Available hydrochlo rothiazid e 25 mg tablet TAKE 1 TABLET BY MOUTH EVERY DAY 07/05 completed stopped sec to hypokale osei Not Available Not Available Not Available metoprolo l succinate ER 25 mg tablet,ex tended release 24 hr TAKE 1 TABLET BY MOUTH EVERY DAY active Not Available Not Available No t Available ergocalci ferol (vitamin D2) 1,250 mcg (50,000 unit) capsule TAKE 1 CAPSULE BY MOUTH ONE TIME PER WEEK FOR 90 DAYS 02/16 completed Pt not taking Not Available Not Available Not Available azelastin e 137 mcg (0.1 %) nasal spray [place] 2 sprays twice a day by intranas al route for 30 days. 07/05 completed Not Available Not Available Not Available budesonid e DR - ER 3 mg capsule,d elayed,ex tended release 09/30 completed Not Available Not Available Not Available cefuroxim e axetil 500 mg tablet 09/30 completed Not Available Not Available Not Available methylpre dnisolone 4 mg tablets in a dose pack TAKE 6 TABLETS ON DAY 1 DIRECTED ON PACKAGE AND DECREASE BY 1 TAB EACH DAY FOR A TOTAL OF 6 DAYS 07/05 completed Not Available Not Available Not Available albuterol sulfate HFA 90 mcg/actua tion aerosol inhaler Inhale 2 puffs every 4 hours by inhalati on route for 90 days. 2024 active Not Available Not Available Not Avai lable cefdinir 300 mg capsule 09/30 completed Not Available Not Available Not Available fluticaso ne propionat e 50 mcg/actua tion nasal spray,tracey pension ADMINIST ER 2 SPRAYS IN EACH NOSTRIL EVERY DAY active Not Available Not Available No t Available loratadin e 10 mg tablet Take 1 tablet every day by oral route for 90 days. 07/05 completed Not Available Not Available Not Available diazepam 5 mg tablet 09/30 completed Not Available Not Available Not Available Benadryl Allergy 25 mg tablet Take 2 tablets every day by oral route at bedtime for 90 days. 09/30 completed Not Available Not Available Not Available Premarin 0.625 mg/gram vaginal cream APPLY 1/2 GRAM THREE TIMES WEEKLY DIRECTED 07/05 completed Not Available Not Available Not Available cholestyr amine (with sugar) 4 gram powder for susp in a packet MIX AND DRINK 1 PACKET BY MOUTH DAILY 07/05 completed Not Available Not Available Not Available Spiriva with HandiHale r 18 mcg and inhalatio n capsules Inhale 1 capsule every day by inhalati on route for 90 days. active Not Available Not Available No t Available duloxetin e 20 mg capsule,d elayed release 09/30 completed Not Available Not Available Not Available Symbicort 160 mcg-4.5 mcg/actua tion HFA aerosol inhaler Inhale 2 puffs twice a day by inhalati on route for 90 days. 2020 active Not Available Not Available Not Avai lable peg 3350-elec trolytes 236 gram-22.7 4 gram-6.74 gram-5.86 gram solution active Not Available Not Available Not Available cholecalc iferol (vitamin D3) 50 mcg (2,000 unit) capsule TAKE 1 TABLET BY ORAL ROUTE IN THE MORNING FOR 90 DAYS. active Not Available Not Available No t Available Vios Aerosol Delivery System TAKE DIRECTED 07/05 completed Not Available Not Available Not Available Adult Robitussi n Peak Cold DM 10 mg-100 mg/5 mL oral liquid Take 10 mL 3 times a day by oral route for 7 days. 09/30 completed Not Available Not Available Not Available ergocalci ferol (vitamin D2) 50 mcg (2,000 unit) tablet Take 1 tablet by oral route in the morning for 90 days. 2024 active Not Available Not Available Not Avai lable potassium chloride ER 20 mEq tablet,ex tended release TAKE 1 TABLET TWICE A DAY BY ORAL ROUTE FOR 90 DAYS. active Not Available Not Available No t Available Incruse Ellipta 62.5 mcg/actua tion powder for inhalatio n Inhale 1 puff every day by inhalati on route for 90 days. 08/18 completed Not Available Not Available Not Available Vitals Date Recorded Body height Pain severity - 0-10 verbal numeric rating [Score] - Reported Body temperature Body mass index (BMI) Body weight Oxygen saturation Oxygen saturation in Arterial blood by Pulse oximetry Heart rate Respiratory rate Systolic And Diastolic Provider Name and Address Organization Details Last Updated DateTime 5 167.64 cm 0 96.4 [degF] 27 kg/m2 10677.9 3 g 99 % 99 % 72 /min 18 /min 160/103 mm[Hg] Nessa Butts MA [facility] 5 10:48:47 Date Recorded Body height Body mass index (BMI) Body weight Oxygen saturation Oxygen saturation in Arterial blood by Pulse oximetry Heart rate Respiratory rate Body temperature Systolic And Diastolic Provider Name and Address Organization Details Last Updated DateTime 5 167.64 cm 26.8 kg/m2 88411.3 3 g 98 % 98 % 73 /min 18 /min 97.6 [degF] 156/88 mm[Hg] Renetta Mckeon MA [facility] 5 10:34:16 Date Recorded Body height Body mass index (BMI) Body weight Oxygen saturation Oxygen saturation in Arterial blood by Pulse oximetry Heart rate Respiratory rate Body temperature Systolic And Diastolic Provider Name and Address Organization Details Last Updated DateTime 5 167.64 cm 25.8 kg/m2 74240.7 8 g 99 % 99 % 70 /min 18 /min 97.4 [degF] 216/119 mm[Hg] Renetta Mckeon MA [facility] 5 11:57:17 Date Recorded Body height Body temperature Pain severity - 0-10 verbal numeric rating [Score] - Reported Oxygen saturation Oxygen saturation in Arterial blood by Pulse oximetry Heart rate Body mass index (BMI) Body weight Systolic And Diastolic Provider Name and Address Organization Details Last Updated DateTime 5 167.64 cm 96.9 [degF] 0 100 % 100 % 62 /min 25.6 kg/m2 30698.8 3 g 173/95 mm[Hg] Ronald Melgoza MA [facility] 5 10:44:08 Date Recorded Body height Body mass index (BMI) Body weight Oxygen saturation Oxygen saturation in Arterial blood by Pulse oximetry Heart rate Respiratory rate Body temperature Systolic And Diastolic Provider Name and Address Organization Details Last Updated DateTime 5 167.64 cm 26.1 kg/m2 38377.1 7 g 98 % 98 % 82 /min 18 /min 98 [degF] 148/82 mm[Hg] Renetta Mckeon MA [facility] 5 10:33:44 Social History Question Answer Notes LastModified by Organizat ion Details LastModified Time Tobacco Smoking Status Never Smoker Samina Alvarado MA [facility], [facility] 11/03/2014 12:37:00 Do You Have An Advance Directive? No Information n ot available 10/23/2024 What Is Your Level Of Caffeine Consumption? Occasional [email or web address] Information not available 11/03/2014 In The 14 [...] Do You Have A Medical Power Of Classroom Instructional Aide? No Information not available 10/23/2024 What Was The Date Of Your Most Recent Tobacco Screening? 05/18/2025 [email or web address] Information not available 05/18/2025 What Is Your Relationship Status? Information not available 10/23/2024 How Much Tobacco Do You Smoke? No [email or web address] Information not available 04/30/2017 Has Tobacco Cessation Counseling Been Provided? No [email or web address] Information not available 12/12/2022 Sex: Female Functional Status Question Answer Note LastModified by Organizat ion Details LastModified Time Do you use any illicit or recreational drugs? No Information not available 10/23/2024 Do you or have you ever used any other forms of tobacco or nicotine? No Information not available 10/23/2024 What is your level of alcohol consumption? None [email or web address] Information not available 11/03/2014 Are you currently employed? No [email or web address] Information not available 02/16/2025 Mental Status None recorded. Family History Nothing Reported. Medical History Condition Response Coronary Artery Disease N Other Y Atrial Fibrillation N High Blood Pressure Y Depression N COPD Y Blood Clots N Anxiety Disorder N Muscle, Joint, or Bone Problems Y Acid Reflux (GERD) Y Cancer N Stroke N High Cholesterol N Liver Disease N Headaches N Kidney or Bladder Problems N Thyroid Problems N GI Problems N Skin Problems N Anemia N Heart Attack (SC) N Diabetes N Seizures/Epilepsy N Asthma Y Allergies Y Hepatitis N Heart Failure N Osteoporosis N Gynecological HistoryNo gynecological history recorded. Obstetrics History GPAL:G 0 P 0 0 0 0 Past Encounters Encounter ID Performer Location Encounter Start Date Encounter Closed Date Diagnosis/Indication Diagnosis SNOMED-CT Code Diagnosis ICD10 Code Diagnosis IMO Codes Diagnosis Note [id number] Miah Manuel MD [address] [address] 11/03/2014 11:32:48 11/08/2014 11:20:53 Essential hypertension 49797804 Chronic ob structive pulmonary disease 05284414 meds and follow up Crohn's disease 28205520 m eds and see GI Allergic rhinitis 60834537 nose spray and follow up Gastroesop hageal reflux disease 217145812 meds and see GI Osteoarthritis 297556797 m eds and PT... also pain meds help with crohns [id number] Miah Manuel MD [place] [address] 3 01/31/2015 11:03:53 02/03/2015 17:16:54 Essential hypertension 74877170 Gastroesop hageal reflux disease 068395353 meds and see GI Chronic ob structive pulmonary disease 25202677 meds and follow up Crohn's disease 90942263 m eds and see GI, and she takes aciphex/pr otonix combo per his recommenda tion... Allergic rhinitis 83719795 nose spray and follow up Osteoarthritis 776420174 m eds and PT... also pain meds help with crohns [id number] Miah Manuel MD [place] [address] 3 05/02/2015 11:10:48 05/02/2015 20:45:03 Essential hypertension 88411409 meds and follow up... Chronic ob structive pulmonary disease 58390086 meds and follow up Gastroesop hageal reflux disease 800189360 meds and see GI Osteoarthritis 314864433 m eds and PT... also pain meds help with crohns Crohn's disease 64500150 m eds and see GI, and she takes aciphex/pr otonix combo per his recommenda tion... Allergic rhinitis 32263490 nose spray and follow up [id number] Miah Manuel MD [place] [address] 3 08/02/2015 10:38:24 08/04/2015 18:40:37 Chronic obstructive pulmonary disease 88526287 J44.9 meds and follow up Essential hypertension 85588824 I10 meds and follow up... Crohn's disease 11973564 K50.90 meds and see GI, and she takes aciphex/pr otonix combo per his recommenda tion... Gastroesop hageal reflux disease 221285542 K21.9 meds and see GI Osteoarthritis 442079879 M19.90 meds and PT... also pain meds help with crohns Acute bronchitis 9620678 2 J20.9 nebulizer machine and follow up... Allergic rhinitis 512217 04 J30.9 nose spray and follow up [id number] Miah Manuel MD [place] [id number] 11/02/2015 11:30:24 11/15/2015 18:48:09 Chronic obstructive pulmonary disease 43888602 J44.9 meds and follow up Crohn's disease 53784963 K50.90 meds and see GI, and she takes aciphex/pr otonix combo per his recommenda tion... Essential hypertension 82812962 I10 meds and follow up... Allergic rhinitis 987374 04 J30.9 nose spray and follow up Gastroesop hageal reflux disease 457742779 K21.9 meds and see GI Osteoarthritis 813444653 M19.90 meds and PT... also pain meds help with crohns Otitis externa 3046587 H 60.339 meds and follow up... [id number] Miah Manuel MD [address] [address] 01/31/2016 11:10:09 02/07/2016 08:32:46 Chronic obstructive pulmonary disease 66432494 J44.9 meds and follow up Essential hypertension 33107735 I10 meds and follow up... Crohn's disease 09368335 K50.90 meds and see GI, and she takes aciphex/pr otonix combo per his recommenda tion... Gastroesop hageal reflux disease 425976971 K21.9 meds and see GI Allergic rhinitis 908059 04 J30.9 nose spray and follow up Osteoarthritis 376901838 M19.90 meds and PT... also pain meds help with crohns [id number] Miah Manuel MD [address] [address] 04/30/2016 11:28:14 05/04/2016 03:47:53 Chronic obstructive pulmonary disease 97362637 J44.9 meds and follow up Essential hypertension 12550217 I10 meds and follow up... Crohn's disease 14614052 K50.90 meds and see GI, and she takes aciphex/pr otonix combo per his recommenda tion... Gastroesop hageal reflux disease 080276239 K21.9 meds and see GI Allergic rhinitis 494519 04 J30.9 nose spray and follow up Osteoarthritis 363057287 M19.90 meds and PT... also pain meds help with crohns Anxiety 54722082 F41.9 Xanax for trip #3 pills... [id number] Miah Manuel MD [address] [address] 07/31/2016 10:16:43 08/06/2016 16:15:15 Chronic obstructive pulmonary disease 91197312 J44.9 meds and follow up Crohn's disease 09493116 K50.90 meds and see GI, and she takes aciphex/pr otonix combo per his recommenda tion... Essential hypertension 75281856 I10 meds and follow up... Allergic rhinitis 714914 04 J30.9 nose spray and follow up Anxiety 95150455 F41.9 stable Osteoarthritis 741071632 M19.90 meds and PT... also pain meds help with crohns Gastroesop hageal reflux disease 687889704 K21.9 meds and see GI [id number] Miah Manuel MD [address] [address] 09/18/2016 17:03:36 09/21/2016 11:35:44 Crusted scabies 665250229 B86 meds and follow up... Allergic rhinitis 563598 04 J30.9 nose spray and follow up [id number] Miah Manuel MD [address] [address] 10/23/2016 17:24:11 10/29/2016 08:47:22 Otitis externa 6110319 H60.339 meds and follow up... nte allergic to PCN/ERYTH/ QUINOLONE/ SULFA [id number] Miah Manuel MD [address] [address] 11/14/2016 16:26:46 11/16/2016 08:31:34 Chronic obstructive pulmonary disease 87480614 J44.9 meds and follow up Gastroesop hageal reflux disease 535131045 K21.9 meds and see GI Crohn's disease 04592822 K50.90 meds and see GI, and she takes aciphex/pr otonix combo per his recommenda tion... Essential hypertension 25194217 I10 meds and follow up... Osteoarthritis 622039650 M19.90 meds and PT... also pain meds help with crohns Allergic rhinitis 717828 04 J30.9 nose spray and follow up [id number] Miah Manuel MD [address] [address] 01/23/2017 10:51:52 02/15/2017 08:32:25 Essential hypertension 57620212 I10 meds and follow up... Crohn's disease 19084870 K50.90 meds and see GI, and she takes aciphex/pr otonix combo per his recommenda tion... Gastroesop hageal reflux disease 328171001 K21.9 meds and see GI Chronic ob structive pulmonary disease 54229254 J44.9 meds and follow up Osteoarthritis 428151514 M19.90 meds and PT... also pain meds help with crohns Anxiety 78663711 F41.9 stable Allergic rhinitis 873070 04 J30.9 nose spray and follow up [id number] Miah Manuel MD [place] [address] 3 03/05/2017 17:21:10 03/12/2017 14:44:10 Upper respiratory infection 50987508 J06.9 she can tolerate Keflex.... treat and follow up [id number] Miah Manuel MD [place] [id number] 04/30/2017 18:09:04 05/02/2017 10:20:37 Essential hypertension 36474389 I10 meds and follow up... Crohn's disease 65756864 K50.90 meds and see GI, and she takes aciphex/pr otonix combo per his recommenda tion... Gastroesop hageal reflux disease 626803401 K21.9 meds and see GI Chronic ob structive pulmonary disease 46369151 J44.9 meds and follow up Osteoarthritis 507420581 M19.90 meds and PT... also pain meds help with crohns Anxiety 83568108 F41.9 stable Allergic rhinitis 944559 04 J30.9 nose spray and follow up Hernia of abdominal cavity 69161729 K46.9 surgery on 05-10-2017 Otitis externa 9378811 H 60.339 meds and follow up... note allergic to PCN/ERYTH/ QUINOLONE/ SULFA [id number] Miah Manuel MD [place] [id number] 07/31/2017 10:31:26 08/01/2017 10:40:22 Essential hypertension 74824927 I10 meds and follow up... Crohn's disease 53198618 K50.90 meds and see GI, and she takes aciphex/pr otonix combo per his recommenda tion... Chronic ob structive pulmonary disease 77164733 J44.9 meds and follow up Gastroesop hageal reflux disease 072643885 K21.9 meds and see GI Anxiety 23666619 F41.9 stable Osteoarthritis 349984879 M19.90 meds and PT... also pain meds help with crohns Allergic rhinitis 804829 04 J30.9 nose spray and follow up [id number] Miah Manuel MD [address] [address] 10/31/2017 10:19:20 10/31/2017 16:02:19 Crohn's disease 39792069 K50.90 meds and see GI, and she takes aciphex/pr otonix combo per his recommenda tion... Essential hypertension 31401827 I10 meds and follow up... Chronic ob structive pulmonary disease 30412534 J44.9 meds and follow up Gastroesop hageal reflux disease 641313254 K21.9 meds and see GI Anxiety 61999180 F41.9 stable Osteoarthritis 129169022 M19.90 meds and PT... also pain meds help with crohns Allergic rhinitis 417390 04 J30.9 nose spray and follow up General unsteadiness 271 410605 R26.81 seeing neurologis t with MRI pending ... Radha Jean MD [id number] Miah Manuel MD [address] [address] 01/28/2018 11:37:55 01/28/2018 15:17:49 Crohn's disease 58722206 K50.90 meds and see GI, and she takes aciphex/pr otonix combo per his recommenda tion... Essential hypertension 28173968 I10 meds and follow up... Chronic ob structive pulmonary disease 12551658 J44.9 meds and follow up Gastroesop hageal reflux disease 124511350 K21.9 meds and see GI Osteoarthritis 557013032 M19.90 meds and PT... also pain meds help with crohns Anxiety 17417043 F41.9 stable... Allergic rhinitis 158959 04 J30.9 nose spray and follow up... Hernia of abdominal cavity 11192215 K46.9 surgery was offered, but not scheduled yet... [id number] Miah Manuel MD [place] [address] 04/30/2018 11:29:58 05/01/2018 08:51:11 Essential hypertension 50349542 I10 meds and follow up... Crohn's disease 83474100 K50.90 meds and see GI, and she takes aciphex/pr otonix combo per his recommenda tion... Chronic ob structive pulmonary disease 21938847 J44.9 meds and follow up Gastroesop hageal reflux disease 907992616 K21.9 meds and see GI Osteoarthritis 817532065 M19.90 meds and PT... also pain meds help with crohns Anxiety 22966197 F41.9 stable... Allergic rhinitis 850622 04 J30.9 nose spray and follow up... Hernia of abdominal cavity 29460674 K46.9 surgery was offered, but not scheduled yet... Pain in left arm 0234185 00 M79.602 refer to PT once cleared by cardiologi ... Atypical chest pain 1025 14972 R07.89 refer [id number] Miah Manuel MD [place] [address] 3 05/27/2018 18:02:59 05/29/2018 10:35:50 Upper respiratory infection 80889513 J06.9 she can tolerate Keflex.... treat and follow up... Xyzal/Nasa foreign... [id number] Miah Manuel MD [place] [address] 3 07/01/2018 11:18:44 07/01/2018 15:39:23 Osteoarthritis 212538527 M19.90 meds and PT... also pain meds help with crohns Essential hypertension 59886010 I10 meds and follow up... Crohn's disease 46533900 K50.90 meds and see GI, and she takes aciphex/pr otonix combo per his recommenda tion... Chronic ob structive pulmonary disease 94274570 J44.9 meds and follow up Gastroesop hageal reflux disease 235177681 K21.9 meds and see GI Anxiety 11718696 F41.9 stable... Allergic rhinitis 870934 04 J30.9 nose spray and follow up... Hernia of abdominal cavity 74412533 K46.9 surgery was offered, but not scheduled yet... Pain in left arm 1896783 00 M79.602 refer to PT once cleared by cardiologi st... Atypical chest pain 1025 13618 R07.89 referred.. . stress test done yesterday. .. results to be given today.. [id number] Miah Manuel MD [place] [address] 10/01/2018 10:57:11 10/03/2018 09:32:36 Essential hypertension 62016134 I10 meds and follow up... Osteoarthritis 114522333 M19.90 meds and PT... also pain meds help with crohns Crohn's disease 27579264 K50.90 meds and see GI, and she takes aciphex/pr otonix combo per his recommenda tion... Chronic ob structive pulmonary disease 00525218 J44.9 meds and follow up Gastroesop hageal reflux disease 613794184 K21.9 meds and see GI Anxiety 70691756 F41.9 stable... Allergic rhinitis 882409 04 J30.9 nose spray and follow up... Hernia of abdominal cavity 38316820 K46.9 surgery was offered, but not scheduled yet... Pain in left arm 4942800 00 M79.602 refer to PT once cleared by cardiologi st... Atypical chest pain 1025 10954 R07.89 referred.. . stress test done yesterday. .. results to be given today.. [id number] Miah Manuel MD [place] [address] 12/03/2018 10:45:23 12/03/2018 15:47:10 Essential hypertension 33937516 I10 meds and follow up... Osteoarthritis 792690892 M19.90 meds and PT... also pain meds help with crohns Crohn's disease 02897803 K50.90 meds and see GI, and she takes aciphex/pr otonix combo per his recommenda tion... Chronic ob structive pulmonary disease 51063177 J44.9 meds and follow up Gastroesop hageal reflux disease 829925420 K21.9 meds and see GI Anxiety 16636278 F41.9 stable... Allergic rhinitis 076068 04 J30.9 nose spray and follow up... Hernia of abdominal cavity 32375168 K46.9 surgery was offered, but not scheduled yet... Pain in left arm 8937371 00 M79.602 refer to PT once cleared by cardiologi st... Atypical chest pain 1025 86393 R07.89 referred.. . stress test done yesterday. .. results to be given today.. [id number] Miah Manuel MD [place] [address] 03/05/2019 10:53:32 03/06/2019 10:50:00 Essential hypertension 32781098 I10 meds and follow up... Osteoarthritis 167906075 M19.90 meds and PT... also pain meds help with crohns Crohn's disease 43331093 K50.90 meds and see GI, and she takes aciphex/pr otonix combo per his recommenda tion... Chronic ob structive pulmonary disease 32431635 J44.9 meds and follow up Gastroesop hageal reflux disease 436332012 K21.9 meds and see GI Anxiety 21989609 F41.9 stable... Allergic rhinitis 776378 04 J30.9 nose spray and follow up... Hernia of abdominal cavity 23958101 K46.9 surgery was offered, but not scheduled yet... she will contact Dr. Bhardwaj at [facility]... Pain in left arm 7335822 00 M79.602 refer to PT once cleared by cardiologi ... Atypical chest pain 1025 82445 R07.89 referred.. . seeing cardiologi st... [id number] Miah Manuel MD [place] [id number] 06/16/2019 17:55:17 06/17/2019 09:37:04 Crohn's disease 13651286 K50.90 meds and see GI, and she takes aciphex/pr otonix combo per his recommenda tion... Allergic rhinitis 268227 04 J30.9 nose spray and follow up... [id number] Miah Manuel MD [address] [address] 07/29/2019 12:10:52 07/30/2019 10:00:09 Osteoarthritis 241637910 M19.90 meds and PT... also pain meds help with crohns Essential hypertension 66766683 I10 meds and follow up... Crohn's disease 29946918 K50.90 meds and see GI, and she takes aciphex/pr otonix combo per his recommenda tion... Chronic ob structive pulmonary disease 77464936 J44.9 meds and follow up Gastroesop hageal reflux disease 963988046 K21.9 meds and see GI Anxiety 47815358 F41.9 stable... Allergic rhinitis 143987 04 J30.9 nose spray and follow up... Hernia of abdominal cavity 98797308 K46.9 surgery was offered, but not scheduled yet... she will contact Dr. Bhardwaj at [facility]... Pain in left arm 2531074 00 M79.602 refer to PT [id number] Miah Manuel MD [place] [id number] 11/27/2019 10:12:13 11/27/2019 11:23:53 Essential hypertension 93496937 I10 meds and follow up... Osteoarthritis 228869010 M19.90 meds and PT... also pain meds help with crohns... Crohn's disease 67529795 K50.90 meds and see GI, and she takes aciphex/pr otonix combo per his recommenda tion... colonoscop y .. Chronic ob structive pulmonary disease 14917984 J44.9 meds and follow up Gastroesop hageal reflux disease 678243904 K21.9 meds and see GI Anxiety 66592305 F41.9 stable... Allergic rhinitis 617483 04 J30.9 nose spray and follow up... Hernia of abdominal cavity 26965294 K46.9 surgery was offered, but not scheduled yet... she will contact Dr. Bhardwaj at [facility]... Pain in left arm 1284972 00 M79.602 refer to PT, but she wants to wait... [id number] Miah Manuel MD [address] [address] 12/15/2019 18:10:55 12/16/2019 09:52:58 Upper respiratory infection 09168812 J06.9 she can tolerate Keflex.... treat and follow up... Xyzal/Nasa foreign... [id number] Miah Manuel MD [address] [address] 02/26/2020 11:08:20 02/29/2020 08:33:17 Essential hypertension 24499235 I10 meds and follow up... Osteoarthritis 533399550 M19.90 .. also pain meds help with crohns... Crohn's disease 47795456 K50.90 meds and see GI, and she takes aciphex/pr otonix combo per his recommenda tion... colonoscop y .. Chronic ob structive pulmonary disease 96306841 J44.9 meds and follow up Gastroesop hageal reflux disease 502169939 K21.9 meds and see GI Anxiety 73297436 F41.9 stable... Allergic rhinitis 314592 04 J30.9 nose spray and follow up... Hernia of abdominal cavity 00541680 K46.9 surgery was offered, but not scheduled yet... she will contact Dr. Bhardwaj at [facility]... [id number] Miah Manuel MD [place] [address] 03/22/2020 12:32:13 03/23/2020 07:14:35 Essential hypertension 84127244 I10 meds and follow up... Osteoarthritis 443214206 M19.90 .. also pain meds help with crohns... Crohn's disease 40446435 K50.90 meds and see GI, and she takes aciphex/pr otonix combo per his recommenda tion... colonoscop y .. Chronic ob structive pulmonary disease 10708812 J44.9 meds and follow up Gastroesop hageal reflux disease 191726214 K21.9 meds and see GI Anxiety 72728470 F41.9 stable... Allergic rhinitis 299710 J30.9 nose spray and follow up... Hernia of abdominal cavity 25064867 K46.9 surgery was offered, but not scheduled yet... she will contact Dr. Bhardwaj at [facility]... [id number] Miah Manuel MD [place] [address] 06/14/2020 11:27:57 06/15/2020 07:30:20 Essential hypertension 06568923 I10 meds and follow up... Osteoarthritis 389855616 M19.90 .. also pain meds help with crohns... Crohn's disease 93826596 K50.90 meds and see GI, and she takes aciphex/pr otonix combo per his recommenda tion... colonoscop y .. Chronic ob structive pulmonary disease 61783757 J44.9 meds and follow up Gastroesop hageal reflux disease 162067675 K21.9 meds and see GI Anxiety 20037260 F41.9 stable... Allergic rhinitis 831812 04 J30.9 nose spray and follow up... Hernia of abdominal cavity 49871665 K46.9 surgery was offered, but not scheduled yet... she will contact Dr. Bhardwaj at [facility]... [id number] Miah Manuel MD [address] [address] 08/19/2020 10:31:57 08/22/2020 05:42:22 Essential hypertension 55986309 I10 meds and follow up... Osteoarthritis 010348732 M19.90 .. also pain meds help with crohns... Crohn's disease 33226249 K50.90 meds and see GI, and she takes aciphex/pr otonix combo per his recommenda tion... colonoscop y .. Chronic ob structive pulmonary disease 88598232 J44.9 meds and follow up Gastroesop hageal reflux disease 126709307 K21.9 meds and sees GI, follow up per Dr. Hussein... Anxiety 25043637 F41.9 stable... Allergic rhinitis 088199 04 J30.9 nose spray and follow up... Hernia of abdominal cavity 76161773 K46.9 surgery was offered, but not scheduled yet... she will contact Dr. Bhardwaj at [facility]... [id number] Miah Manuel MD [address] [address] 10/19/2020 11:29:32 10/20/2020 06:35:54 Essential hypertension 40721751 I10 meds and follow up... Osteoarthritis 438052082 M19.90 .. also pain meds help with crohns... Crohn's disease 97925889 K50.90 meds and see GI, and she takes aciphex/pr otonix combo per his recommenda tion... colonoscop y .. Chronic ob structive pulmonary disease 36475715 J44.9 meds and follow up Gastroesop hageal reflux disease 312134409 K21.9 meds and sees GI, follow up per Dr. Hussein... Anxiety 40838471 F41.9 stable... Allergic rhinitis 326181 04 J30.9 nose spray and follow up... Hernia of abdominal cavity 55481738 K46.9 surgery was offered, but not scheduled yet... she will contact Dr. Bhardwaj at [facility]... [id number] Miah Manuel MD [place] [address] 3 11/18/2020 12:50:32 11/21/2020 06:39:05 Essential hypertension 60419320 I10 meds and follow up... Osteoarthritis 777673020 M19.90 .. also pain meds help with crohns... Crohn's disease 64835534 K50.90 meds and see GI, and she takes aciphex/pr otonix combo per his recommenda tion... colonoscop y .. Chronic ob structive pulmonary disease 64579168 J44.9 meds and follow up Gastroesop hageal reflux disease 316425345 K21.9 meds and sees GI, follow up per Dr. Hussein... Anxiety 91756289 F41.9 stable... Allergic rhinitis 678580 04 J30.9 nose spray and follow up... Hernia of abdominal cavity 09017555 K46.9 surgery was offered, but not scheduled yet... she will contact Dr. Bhardwaj at [facility]... [id number] Miah Manuel MD [address] [address] 12/16/2020 10:35:14 12/20/2020 05:37:09 Osteoarthritis 286846188 M19.90 .. also pain meds help with crohns... Essential hypertension 71307387 I10 meds and follow up... Crohn's disease 90397721 K50.90 meds and see GI, and she takes aciphex/pr otonix combo per his recommenda tion... colonoscop y .. Chronic ob structive pulmonary disease 60692359 J44.9 meds and follow up Gastroesop hageal reflux disease 096819068 K21.9 meds and sees GI, follow up per Dr. Hussein... Anxiety 23819020 F41.9 stable... Allergic rhinitis 009527 04 J30.9 nose spray and follow up... Hernia of abdominal cavity 18299211 K46.9 surgery was offered, but not scheduled yet... she will contact Dr. Bhardwaj at [facility]... [id number] Miah Manuel MD [address] [address] 01/16/2021 11:16:57 01/17/2021 07:03:02 Essential hypertension 77595601 I10 meds and follow up... Osteoarthritis 553104186 M19.90 .. also pain meds help with crohns... Crohn's disease 59649154 K50.90 meds and see GI, and she takes aciphex/pr otonix combo per his recommenda tion... colonoscop y .. Chronic ob structive pulmonary disease 62438617 J44.9 meds and follow up Gastroesop hageal reflux disease 334614040 K21.9 meds and sees GI, follow up per Dr. Hussein... Aciphex for sx... Anxiety 66791424 F41.9 stable... Allergic rhinitis 405302 04 J30.9 nose spray and follow up... Hernia of abdominal cavity 17084767 K46.9 surgery was offered, but not scheduled yet... she will contact Dr. Bhardwaj at [facility]... [id number] Miah Manuel MD [place] [address] 3 02/17/2021 10:09:42 02/19/2021 13:17:45 Osteoarthritis 003062958 M19.90 .. also pain meds help with crohns... Essential hypertension 88755999 I10 meds and follow up... Crohn's disease 02853856 K50.90 meds and see GI, and she takes aciphex/pr otonix combo per his recommenda tion... colonoscop y .. Chronic ob structive pulmonary disease 91378580 J44.9 meds and follow up Gastroesop hageal reflux disease 014753881 K21.9 meds and sees GI, follow up per Dr. Hussein... Anxiety 36620343 F41.9 stable... Allergic rhinitis 181352 04 J30.9 nose spray and follow up... Hernia of abdominal cavity 47942068 K46.9 surgery was offered, but not scheduled yet... she will contact Dr. Bhardwaj at [facility]... [id number] Miah Manuel MD [address] [address] 03/20/2021 10:39:07 03/21/2021 13:28:46 Osteoarthritis 473503762 M19.90 .. also pain meds help with crohns... Essential hypertension 58584428 I10 meds and follow up... Crohn's disease 02205669 K50.90 meds and see GI, and she takes aciphex/pr otonix combo per his recommenda tion... colonoscop y .. Chronic ob structive pulmonary disease 51938027 J44.9 meds and follow up Gastroesop hageal reflux disease 495405754 K21.9 meds and sees GI, follow up per Dr. Hussein... Anxiety 69647571 F41.9 stable... Allergic rhinitis 938202 04 J30.9 nose spray and follow up... Hernia of abdominal cavity 11628491 K46.9 surgery was offered, but not scheduled yet... she will contact Dr. Bhardwaj at [facility]... Upper resp iratory infection 29956485 J06.9 she can tolerate Keflex.... treat and follow up... [id number] Miah Manuel MD [address] [address] 04/21/2021 10:35:48 04/21/2021 19:09:28 Osteoarthritis 592648458 M19.90 .. also pain meds help with crohns... Essential hypertension 11849261 I10 meds and follow up... Crohn's disease 24824066 K50.90 meds and see GI, and she takes aciphex/pr otonix combo per his recommenda tion... colonoscop y .. Chronic ob structive pulmonary disease 86127609 J44.9 meds and follow up Gastroesop hageal reflux disease 640053927 K21.9 meds and sees GI, follow up per Dr. Hussein... Anxiety 25276959 F41.9 stable... Allergic rhinitis 216554 04 J30.9 nose spray and follow up... Hernia of abdominal cavity 55246329 K46.9 surgery was offered, but not scheduled yet... she will contact Dr. Bhardwaj at [facility]... [id number] Miah Manuel MD [address] [address] 06/08/2021 13:02:46 06/09/2021 14:22:58 Chronic obstructive pulmonary disease 67739815 J44.9 meds and follow up Osteoarthritis 813939775 M19.90 .. also pain meds help with crohns... Essential hypertension 33519449 I10 meds and follow up... Crohn's disease 66244543 K50.90 meds and see GI, and she takes aciphex/pr otonix combo per his recommenda tion... colonoscop y .. Gastroesop hageal reflux disease 622969421 K21.9 meds and sees GI, follow up per Dr. Hussein... Anxiety 90807604 F41.9 stable... Allergic rhinitis 701219 04 J30.9 nose spray and follow up... Hernia of abdominal cavity 23141637 K46.9 surgery was offered, but not scheduled yet... she will contact Dr. Bhardwaj at [facility]... [id number] Miah Manuel MD [address] [address] 08/08/2021 09:47:09 08/09/2021 09:52:56 Chronic obstructive pulmonary disease 50916919 J44.9 meds and follow up Gastroesop hageal reflux disease 851842074 K21.9 meds and sees GI, follow up per Dr. Hussein... Crohn's disease 26134636 K50.90 meds and see GI, and she takes aciphex/pr otonix combo per his recommenda tion... colonoscop y .. Osteoarthritis 375572433 M19.90 .. also pain meds help with crohns... Essential hypertension 24943226 I10 meds and follow up... Anxiety 23939473 F41.9 stable... Allergic rhinitis 061503 04 J30.9 nose spray and follow up... Hernia of abdominal cavity 69427931 K46.9 surgery was offered, but not scheduled yet... she will contact Dr. Bhardwaj at [facility]... [id number] Miah Manuel MD [address] [address] 10/24/2021 17:16:00 10/28/2021 12:10:56 Alopecia 52390873 L65.9 refer... Crohn's disease 42718387 K50.90 meds and see GI, and she takes aciphex/pr otonix combo per his recommenda tion... colonoscop y .. Allergic rhinitis 949987 04 J30.9 nose spray and follow up... [id number] Miah Manuel MD [address] [address] 11/08/2021 10:21:43 11/09/2021 08:46:37 Osteoarthritis 664693868 M19.90 .. also pain meds help with crohns... Alopecia 54910788 L65.9 refer... Crohn's disease 22198857 K50.90 meds and see GI, and she takes aciphex/pr otonix combo per his recommenda tion... colonoscop y ... Allergic rhinitis 954538 04 J30.9 nose spray and follow up... Chronic ob structive pulmonary disease 49693856 J44.9 meds and follow up Gastroesop hageal reflux disease 404785535 K21.9 meds and sees GI, Dr. Hussein... Essential hypertension 45119321 I10 meds and follow up... Anxiety 82115809 F41.9 stable... Hernia of abdominal cavity 71081823 K46.9 surgery was offered, but not scheduled yet... sees Dr. Bhardwaj at [facility]... Hypokalemia 29719465 E87 .6 recheck and follow up... advised taking meds regularly as she forgets on weekends.. . 1 month follow up... [id number] Miah Manuel MD [address] [address] 12/06/2021 10:05:51 12/07/2021 09:59:14 Osteoarthritis 905749679 M19.90 .. also pain meds help with Crohns... Alopecia 48781338 L65.9 refer... Crohn's disease 53880243 K50.90 meds and see GI, and she takes aciphex/pr otonix combo per his recommenda tion... colonoscop y ... Allergic rhinitis 991250 04 J30.9 nose spray and follow up... Chronic ob structive pulmonary disease 87822425 J44.9 meds and follow up Gastroesop hageal reflux disease 560422295 K21.9 meds and sees GIDr. Hussein... Essential hypertension 18528660 I10 meds and follow up... Anxiety 12880420 F41.9 stable... Hernia of abdominal cavity 15482864 K46.9 surgery was offered, but not scheduled yet... sees Dr. Bhardwaj at [facility]... Hypokalemia 94437143 E87 .6 recheck and follow up... advised taking meds regularly as she forgets on weekends.. . 3.5 = potassium [id number] Miah Manuel MD [address] [address] 02/05/2022 13:50:07 02/06/2022 14:44:09 Crohn's disease 59806981 K50.90 meds and see GI, and she takes aciphex/pr otonix combo per his recommenda tion... colonoscop y ... Osteoarthritis 869455346 M19.90 .. also pain meds help with Crohns... Alopecia 02482891 L65.9 refer... Allergic rhinitis 366884 04 J30.9 nose spray and follow up... Chronic ob structive pulmonary disease 95008612 J44.9 meds and follow up Gastroesop hageal reflux disease 006575206 K21.9 meds and sees GIDr. Hussein... Essential hypertension 15565376 I10 meds and follow up... Anxiety 89662506 F41.9 stable... Hernia of abdominal cavity 42228793 K46.9 surgery was offered, but not scheduled yet... sees Dr. Bhardwaj at [facility]... Hypokalemia 69517782 E87 .6 recheck and follow up... advised taking meds regularly as she forgets on weekends.. . 3.5 = potassium [id number] Miah Manuel MD [address] [address] 03/07/2022 11:43:06 03/08/2022 09:49:35 Crohn's disease 57732808 K50.90 meds and see GI, and she takes aciphex/pr otonix combo per his recommenda tion... colonoscop y ... Osteoarthritis 021683602 M19.90 .. also pain meds help with Crohns... low back pain treat with home PT and meds Alopecia 78421281 L65.9 refer... Allergic rhinitis 934204 04 J30.9 nose spray and follow up... Chronic ob structive pulmonary disease 43202199 J44.9 meds and follow up Gastroesop hageal reflux disease 621080332 K21.9 meds and sees GI, Dr. Hussein... Essential hypertension 60523160 I10 meds and follow up... Anxiety 22554702 F41.9 stable... Hernia of abdominal cavity 10007239 K46.9 surgery was offered, but not scheduled yet... sees Dr. Bhardwaj at [facility]... Hypokalemia 06994345 E87 .6 recheck and follow up... advised taking meds regularly as she forgets on weekends.. . 3.5 = potassium [id number] Miah Manuel MD [address] [address] 04/05/2022 11:48:47 04/06/2022 09:57:20 Thoracic back pain 470949909 M54.6 order x-ray and follow up... Crohn's disease 64461896 K50.90 meds and see GI, and she takes aciphex/pr otonix combo per his recommenda tion... colonoscop y ... Osteoarthritis 653319541 M19.90 .. also pain meds help with Crohns... low back pain treat with home PT and meds Alopecia 10452195 L65.9 refer... Allergic rhinitis 391598 04 J30.9 nose spray and follow up... Chronic ob structive pulmonary disease 49369101 J44.9 meds and follow up Gastroesop hageal reflux disease 857721817 K21.[address] Jovita HUMPHREY... Essential hypertension 08583102 I10 meds and follow up... Anxiety 90119734 F41.9 stable... Hernia of abdominal cavity 11388730 K46.9 surgery was offered, but not scheduled yet... sees Dr. Bhardwaj at [facility]... Hypokalemia 96147771 E87 .6 recheck and follow up... advised taking meds regularly as she forgets on weekends.. . 3.5 = potassium Pain of bi lateral knee joints 9732899444 78815 M25.561 M25.562 brace and follow up.. [id number] Miah Manuel MD [address] [address] 05/07/2022 10:12:04 05/08/2022 23:16:42 Essential hypertension 97575510 I10 meds and follow up... Crohn's disease 11657527 K50.90 meds and see GI, and she takes aciphex/pr otonix combo per his recommenda tion... colonoscop y ... Osteoarthritis 074590430 M19.90 .. also pain meds help with Crohns... low back pain treat with home PT and meds Alopecia 68898720 L65.9 referred Allergic rhinitis 574536 04 J30.9 nose spray and follow up... Chronic ob structive pulmonary disease 66406420 J44.9 meds and follow up Gastroesop hageal reflux disease 487066793 K21.[address] Jovita HUMPHREY... Anxiety 02598007 F41.9 stable... Hernia of abdominal cavity 69672776 K46.9 surgery was offered, but not scheduled yet... sees Dr. Bhardwaj at [facility]... Hypokalemia 00805767 E87 .6 recheck and follow up... advised taking meds regularly as she forgets on weekends.. . 3.5 = potassium [id number] Miah Manuel MD [place] [address] 3 06/26/2022 15:56:08 06/27/2022 07:57:21 Upper respiratory infection 45743720 J06.9 she can tolerate Keflex.... treat and follow up... [id number] Miah Manuel MD [place] [address] 07/02/2022 11:24:48 07/04/2022 08:10:40 Crohn's disease 40149434 K50.90 meds and see GI, and she takes aciphex/pr otonix combo per his recommenda tion... colonoscop y ... Essential hypertension 88277983 I10 meds and follow up... Osteoarthritis 604496251 M19.90 .. also pain meds help with Crohns... low back pain and neck pain with ROM... neck MRI pending and EMG/NCS pending.. Alopecia 74931631 L65.9 referred, but didnt see derm... hair has corrected itself.. Allergic rhinitis 233551 04 J30.9 nose spray and follow up... Chronic ob structive pulmonary disease 67237971 J44.9 meds and follow up Gastroesop hageal reflux disease 884218909 K21.9 meds and sees GI, Dr. Hussein... Anxiety 31180111 F41.9 stable... Hernia of abdominal cavity 92466684 K46.9 surgery was offered, but not scheduled yet... sees Dr. Bhardwaj at [facility]... Hypokalemia 33796851 E87 .6 stable [id number] Miah Manuel MD [address] [address] 10/15/2022 11:51:19 10/16/2022 11:54:29 Allergic rhinitis 16558941 J30.9 nose spray and follow up... Essential hypertension 56404111 I10 meds and follow up... Osteoarthritis 641569930 M19.90 .. also pain meds help with Crohns... low back pain and neck pain with ROM... neck MRI pending and EMG/NCS pending.. Crohn's disease 44200828 K50.90 meds and see GI, and she takes aciphex/pr otonix combo per his recommenda tion... colonoscop y ... Gastroesop hageal reflux disease 817355535 K21.[address] Jovita HUMPHREY... Chronic ob structive pulmonary disease 16518042 J44.9 meds and follow up Low back pain 594845690 M54.50 order and follow up... use cane and walker... 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 Neuropathy 458967583 G62 .9 right hand with surgery pending.. Umbilical hernia 9494070 07 K42.9 right side periumbicu lar hernia about softball sized... seeing surgeon [id number] Miah Manuel MD [address] [address] 12/12/2022 10:58:47 12/13/2022 12:11:57 Allergic rhinitis 29549592 J30.9 nose spray and follow up... Essential hypertension 44911268 I10 meds and follow up... Osteoarthritis 994091509 M19.90 .. also pain meds help with Crohns... low back pain and neck pain with ROM... neck MRI shows cord flattening C3- C7 per 09-21-2023 ortho note Crohn's disease 41768251 K50.90 meds and see GI, and she takes aciphex/pr otonix combo per his recommenda tion... colonoscop y ... Gastroesop hageal reflux disease 771161993 K21.[address] Jovita HUMPHREY... Chronic ob structive pulmonary disease 88805454 J44.9 meds and follow up Obesity 010623373 E66.9 BMI=30.7 Neuropathy 468493228 G62 .9 bx done by neuro per patient... follow up... Pain in fi nger of right hand 1700521162 62920 M79.227 [id number] Miah Manuel MD [address] [address] 02/13/2023 16:05:09 02/14/2023 14:58:16 Obesity 088105772 E66.9 BMI=30.7 Allergic rhinitis 360201 04 J30.9 nose spray and follow up... Essential hypertension 61199722 I10 meds and follow up... Osteoarthritis 600975395 M19.90 .. also pain meds help with Crohns... low back pain and neck pain with ROM... neck MRI shows cord flattening C3- C7 per 09-21-2023 ortho note Crohn's disease 26500305 K50.90 meds and see GI, and she takes aciphex/pr otonix combo per his recommenda tion... colonoscop y ... Gastroesop hageal reflux disease 681274624 K21.9 meds and sees GI, Dr. Hussein... Chronic ob structive pulmonary disease 01062877 J44.9 meds and follow up Neuropathy 811883253 G62 .9 bx done by neuro per patient... follow up... Pain in fi nger of right hand 9585852163 88357 M79.644 appt pending potassium normalizat ion.. Hypokalemia 30590201 E87 .6 stable [id number] Miah Manuel MD [address] [address] 04/02/2023 11:54:26 04/08/2023 09:46:28 Obesity 045260564 E66.9 BMI=31 Allergic rhinitis 758497 04 J30.9 nose spray and follow up... Essential hypertension 12632082 I10 meds and follow up... Osteoarthritis 429951776 M19.90 .. also pain meds help with Crohns... low back pain and neck pain with ROM... neck MRI shows cord flattening C3- C7 per 09-21-2022 ortho note... Crohn's disease 22316859 K50.90 meds and see GI, and she takes aciphex/pr otonix combo per his recommenda tion... colonoscop y ... Gastroesop hageal reflux disease 774579603 K21.9 meds and sees GIDr. Hussein... Chronic ob structive pulmonary disease 88707165 J44.9 meds and follow up Neuropathy 044062172 G62 .9 bx done by neuro per patient... follow up... Pain in fi nger of right hand 7126248083 43588 M79.644 appt pending potassium normalizat ion.. Hypokalemia 14112971 E87 .6 3.0.... increase to BID and check in 2 weeks... [id number] Miah Manuel MD [address] [address] 06/03/2023 11:02:51 06/12/2023 10:06:24 Osteoarthritis 073705433 M19.90 .. also pain meds help with Crohns... low back pain and neck pain with ROM... neck MRI shows cord flattening C3- C7 per 09-21-2023 ortho note Obesity 317169466 E66.9 BMI=30.8 Allergic rhinitis 267540 04 J30.9 nose spray and follow up... Essential hypertension 32079585 I10 meds and follow up... Crohn's disease 84354851 K50.90 meds and see GI, and she takes aciphex/pr otonix combo per his recommenda tion... colonoscop y ... Gastroesop hageal reflux disease 247961307 K21.9 meds and sees GI, Dr. Hussein... Chronic ob structive pulmonary disease 36273814 J44.9 meds and follow up... smoked 2-3 ppd for 15 years, but stopped 2008... Neuropathy 299158714 G62 .9 bx done by neuro per patient... follow up... Pain in fi nger of right hand 9726356247 45070 M79.644 appt pending potassium normalizat ion.. Hypokalemia 19865785 E87 .6 3.0.... increase to BID and check in 2 weeks... Bite of insect 347682474 W57.XXXA steroid and follow up if visual affcts or worsening sx... [id number] Miah Manuel MD [address] [address] 09/02/2023 11:08:44 09/03/2023 08:57:13 Obesity 002045185 E66.9 BMI=31 Osteoarthritis 660243663 M19.90 .. also pain meds help with Crohns... low back pain and neck pain with ROM... neck MRI shows cord flattening C3- C7 per 09-21-2022 ortho note Allergic rhinitis 294978 04 J30.9 nose spray and follow up... Essential hypertension 75384081 I10 meds and follow up... Crohn's disease 21982784 K50.90 meds and see GI, and she takes aciphex/pr otonix combo per his recommenda tion... colonoscop y ... Gastroesop hageal reflux disease 387878092 K21.9 meds and sees GI, Dr. Hussein... Chronic ob structive pulmonary disease 49142710 J44.9 meds and follow up... smoked 2-3 ppd for 15 years, but stopped 2008... Neuropathy 078482218 G62 .9 bx done by neuro per patient... follow up... Pain in fi nger of right hand 8253021657 49441 M79.644 appt pending potassium normalizat ion.. Hypokalemia 56079235 E87 .6 3.0.... increase to BID and check in 2 weeks... Pain of ri ght elbow joint 6818727193 6515624 M25.422 [id number] Miah Manuel MD [address] [address] 11/04/2023 10:55:17 11/06/2023 09:09:52 Obesity 165535529 E66.9 BMI=31.6 Osteoarthritis 230212152 M19.90 .. also pain meds help with Crohns... low back pain and neck pain with ROM... neck MRI shows cord flattening C3- C7 per 09-21-2022 ortho note Allergic rhinitis 115741 04 J30.9 nose spray and follow up... Essential hypertension 30918991 I10 meds and follow up... Crohn's disease 89160954 K50.90 meds and see GI, and she takes aciphex/pr otonix combo per his recommenda tion... colonoscop y ... Gastroesop hageal reflux disease 719524742 K21.9 meds and sees GI, Dr. Hussein... appt 01-16-2024 with MRI pending... Chronic ob structive pulmonary disease 81840173 J44.9 meds and follow up... smoked 2-3 ppd for 15 years, but stopped 2008... Neuropathy 430215526 G62 .9 bx done by neuro per patient... follow up... Pain in fi nger of right hand 7737966918 26687 M79.644 appt pending potassium normalizat ion.. Hypokalemia 91736801 E87 .6 3.4.... refer to renal Swelling o f first metatarsal joint of hallux of left foot 7785840078 872963 M25.891 [id number] Miah Manuel MD [address] [address] 01/03/2024 10:21:13 01/06/2024 08:25:21 Obesity 922944201 E66.9 BMI=31.8 Osteoarthritis 294377125 M19.90 .. also pain meds help with Crohns... low back pain and neck pain with ROM... neck MRI shows cord flattening C3- C7 per 09-21-2022 ortho note Allergic rhinitis 149920 04 J30.9 nose spray and follow up... Essential hypertension 26063024 I10 meds and follow up... Crohn's disease 03612572 K50.90 meds and see GI, and she takes aciphex/pr otonix combo per his recommenda tion... colonoscop y ... Gastroesop hageal reflux disease 457535798 K21.9 meds and sees GIDr. Hussein... appt 01-16-2024 with MRI pending... Chronic ob structive pulmonary disease 03407880 J44.9 meds and follow up... smoked 2-3 ppd for 15 years, but stopped 2008... Neuropathy 953766576 G62 .9 bx done by neuro per patient... follow up... Pain in fi nger of right hand 0344002360 13826 M79.644 appt pending potassium normalizat ion.. Hypokalemia 95137606 E87 .6 3.4.... refer to renal Swelling o f first metatarsal joint of hallux of left foot 7326907934 510217 M25.475 foot pain still evident and nail is loose on medial aspect.. [id number] Miah Manuel MD [address] [address] 03/04/2024 11:09:39 03/05/2024 09:25:26 Obesity 270919408 E66.8 BMI=31.8 Osteoarthritis 449729666 M19.90 .. also pain meds help with Crohns... low back pain and neck pain with ROM... neck MRI shows cord flattening C3- C7 per 09-21-2022 ortho note Allergic rhinitis 580791 04 J30.9 nose spray and follow up... Essential hypertension 33103208 I10 meds and follow up... Crohn's disease 28690592 K50.90 meds and see GI, and she takes aciphex/pr otonix combo per his recommenda tion... colonoscop y ... Gastroesop hageal reflux disease 919321132 K21.9 meds and sees GI, Dr. Hussein... saw 01-16-2024 and scope in 6 months Chronic ob structive pulmonary disease 45657426 J44.9 meds and follow up... smoked 2-3 ppd for 15 years, but stopped 2008... Neuropathy 144232535 G62 .9 bx done by neuro per patient... follow up... Pain in fi nger of right hand 0717494392 92549 M79.644 appt pending potassium normalizat ion.. Hypokalemia 29118847 E87 .6 3.4.... refer to renal Swelling o f first metatarsal joint of hallux of left foot 8232538128 689236 M25.475 foot pain still evident and nail is loose on medial aspect.. Atypical chest pain 1025 04126 R07.89 referred.. . seeing cardiologi st... [id number] Miah Manuel MD [place] [address] 3 03/30/2024 11:08:45 03/31/2024 09:21:32 Obesity 461946748 E66.8 BMI=31.9 Fracture o f phalanx of foot 14052821 S92.912A brett tape toe and refer.. Hypokalemia 00933125 E87 .6 3.1.... refer to renal Crohn's disease 43892502 K50.90 meds and see GI, and she takes aciphex/pr otonix combo per his recommenda tion... colonoscop y ... Essential hypertension 63629357 I10 meds and follow up... Chronic ob structive pulmonary disease 64295613 J44.9 meds and follow up... smoked 2-3 ppd for 15 years, but stopped 2008... Allergic rhinitis 236998 04 J30.9 nose spray and follow up... Osteoarthritis 366384094 M19.90 .. also pain meds help with Crohns... low back pain and neck pain with ROM... neck MRI shows cord flattening C3- C7 per 09-21-2022 ortho note [id number] Maih Manuel MD [place] [address] 3 06/29/2024 11:32:17 06/30/2024 10:14:56 Crohn's disease 48645008 K50.90 meds and see GI, and she takes aciphex/im uran... colonoscop y 07-22-2024 ... Vitamin D deficiency 347 36233 E55.9 Obesity 720787661 E66.9 BMI=31.9 Fracture o f phalanx of foot 65852139 S92.912A brett tape toe and refer.. Hypokalemia 99076717 E87 .6 4.1... refer to renal Essential hypertension 22446105 I10 meds and follow up... Chronic ob structive pulmonary disease 55283834 J44.9 meds and follow up... smoked 2-3 ppd for 15 years, but stopped 2008... Allergic rhinitis 895115 04 J30.9 nose spray and follow up... Osteoarthritis 517191575 M19.90 .. also pain meds help with Crohns... low back pain and neck pain with ROM... neck MRI shows cord flattening C3- C7 per 09-21-2022 ortho note Screening mammography 24 348035 Z12.31 was done in 2023 per patient by OB... pt to have results sent... Pain in left foot 700920 3400 45291 M79.679 [id number] Julio Zheng MD [facility] ([facility]) [address] [place] [address] 08/18/2024 11:03:01 08/24/2024 15:05:11 Chronic kidney disease stage 3 073142220 N18.30 She appears to have ckd with egfr of 57ml/min with creat of 1.0 mg/dlRisk factors for ckd include h/o h/ohtn,?de hydration sec to diarrhea due to crohn's dzClinical ly euvolemic. .Meds noted,stop ped HCTZiNCREA SE PO INTAKE OF WATER. History of Crohns disease 2465624993 54782 Z87.19 plan per gi specialist ,pt on Essential hypertension 71994199 I10 BP high today .Increase Metopriolo l succinate to 25mg bid (pt not taking Lisinopril for many yrs) Vitamin D deficiency 347 51247 E55.9 cont vit d supplement .PCP managing . Hypokalemia 93212696 E87 .6 STOP hctz [id number] Miah Manuel MD [facility] [address] [place] [address] 10/08/2024 15:19:12 10/13/2024 11:13:07 Overweight 285020126 E66.3 bmi=29.9 Acute sinusitis 85502216 J01.90 meds x 3 weeks.. Closed fra cture of left foot 1214279032 6596640 S92.902D refer to enologist Crohn's disease 99865045 K50.90 meds and see GI, and she takes aciphex/pr otonix combo per his recommenda tion... colonoscop y ... Hypokalemia 06721373 E87 .6 seeing renal... follow up with his rec Chronic ob structive pulmonary disease 82965514 J44.9 meds and follow up... smoked 2-3 ppd for 15 years, but stopped 2008... Allergic rhinitis 885885 04 J30.9 nose spray and follow up... Vitamin D deficiency 347 66357 E55.9 [id number] FILIPE KRUEGER MD [facility] [address] [place] [address] 10/08/2024 16:39:09 10/09/2024 12:56:17 Laboratory test due 274549320 Z76.89 [id number] Nitish Keenan DPM [facility] [address] [address] 10/23/2024 11:43:33 01/15/2025 11:49:08 Capsulitis of metatarsophalangeal joint of left foot 4634255779 8879493 M77.52 85403589 Dislocation of joint 108 050192 S93.105D 5463877 [id number] Miah Manuel MD [address] [address] 12/08/2024 14:56:05 12/09/2024 08:40:51 Adult health examination 264325052 Z00.00 Health Risk Assessment collected and reviewed Overweight 612669509 E66 .3 bmi=27.3 Crohn's disease 72773629 K50.90 meds and see GI, and she takes aciphex/pr otonix combo per his recommenda tion... colonoscop y ... Chronic ob structive pulmonary disease 01191650 J44.9 meds and follow up... smoked 2-3 ppd for 15 years, but stopped 2008... Hypokalemia 70439982 E87 .6 seeing renal... follow up with his rec... stop HCTZ.... Vitamin D deficiency 347 65901 E55.9 Edema of l ower extremity 227330381 R60.0 Essential hypertension 46791630 I10 meds and follow up... check out-pt and follow up. [id number] Miah Manuel MD [address] [place] [address] 01/08/2025 11:13:53 01/11/2025 07:19:53 Crohn's disease 81146346 K50.90 K50.919 400095433 meds and see GI, and she takes aciphex/pr otonix combo per his recommenda tion... colonoscop y ... Overweight 887887542 E66 .3 bmi=27.1 Essential hypertension 70206484 I10 54007 meds and follow up... check out-pt and follow up... add low dose CaCB Hypokalemia 87055315 E87 .6 9791 seeing renal... follow up with his rec... stopped HCTZ.... Vitamin D deficiency 347 25696 E55.9 49488 Edema of l eft lower limb 747667336 R60.0 84616198 Neck pain 33995240 M54.2 84549 Screening mammography 24 722253 Z12.31 2468625563 was done in 2023 per patient by OB... pt to have results sent... Screening for malignant neoplasm of colon 943861431 Z12.11 007321 screening per GI... [id number] FILIPE KRUEGER MD [facility] [address] [place] [address] 01/08/2025 12:27:03 01/13/2025 12:54:43 Laboratory test 61935751 Z01.89 021127 [id number] Julio Zheng MD [facility] ([facility]) [address] [place] [address] 02/16/2025 10:38:15 02/16/2025 11:31:41 Acute kidney injury 87930866 N17.9 568508 kidney fxn has improved,c raeat wnl,egfr> 60ml/min.c linically euvolemic except for trace edema of le noted.La l us wnl.cbc unremarkab le,lytes wnl except for hypokalemi a.Pt on K supplement .Advised to stop Meloxicam( pt not taking this medication since last visit,but is still in list. Hypokalemia 55801445 E87 .6 9791 Pt off HCTZ.Cont potassium supplement .Advised to take kcl 20 meq po bid with close monitorng of lynasimabemiguel g managed by PCP.Check serum Mag level ,low mag can cause low k level Essential hypertension 17670427 I10 181874 BP high today .cont Metopriolo l succinate to 25mg bidWith SPB this high and low k level.chec k serum Suresh/renin level/TSH/ CORTISOL LEVEL and Renal artery doppler study. to r/o sec causes of hypertensi on Crohn's di sease of small and large intestines 91022680 K50.80 [id number] plan per PCP/GI Specialist at [facility] Vitamin D deficiency 347 99178 E55.9 355444 cont vit d supplement .PCP managing. rec taking 2000 units of vit d3 daily. [id number] Miah Manuel MD [address] [address] 03/05/2025 10:05:21 03/05/2025 12:57:01 Overweight 244732249 E66.3 bmi=26.8 Adult heal th examination 101393062 Z00.00 Health Risk Assessment collected and reviewed Crohn's disease 31325074 K50.90 meds and see GI, and she takes aciphex/pr otonix combo per his recommenda tion... colonoscop y ... Chronic ob structive pulmonary disease 14505353 J44.9 meds and follow up... smoked 2-3 ppd for 15 years, but stopped 2008... Hypokalemia 16575752 E87 .6 seeing renal... follow up with his rec... stop HCTZ.... Vitamin D deficiency 347 18669 E55.9 Edema of l ower extremity 686861895 R60.0 stop CaCB and start new BP meds... Essential hypertension 07472297 I10 change meds and follow up... check out-pt and follow up. Atypical chest pain 1025 74235 R07.89 287973 referred.. . seeing cardiologi st... Upper resp iratory infection 86648056 J06.9 20610099 she can tolerate Keflex.... treat and follow up... [id number] Miah Manuel MD [address] [place] [address] 05/05/2025 10:45:19 05/06/2025 14:06:36 Crohn's disease 09898931 K50.90 meds and see GI, and she takes aciphex/pr otonix combo per his recommenda tion... colonoscop y ... Overweight 975809772 E66 .3 bmi=25.8 Adult heal th examination 122437838 Z00.00 Health Risk Assessment collected and reviewed Chronic ob structive pulmonary disease 49061173 J44.9 meds and follow up... smoked 2-3 ppd for 15 years, but stopped 2008... Hypokalemia 23250385 E87 .6 seeing renal... follow up with his rec... stop HCTZ.... Vitamin D deficiency 347 90677 E55.9 Essential hypertension 75448587 I10 change meds and follow up... check out-pt and follow up... increase amlodipine from 5 mg to 10 mg.. Atypical chest pain 1025 81905 R07.89 660324 referred.. . seeing cardiologi st... [id number] Julio Zheng MD [facility] ([facility]) [address] [place] [address] 05/18/2025 10:22:17 05/19/2025 15:14:34 Hypokalemia 66893368 E87.6 9791 Pt off HCTZ.Cont potassium supplement .Low k prob sec to gi fluid loss sec to crohn's dzAdvised to take kcl 20 meq po tid with close monitorng of konstantin ortiz managed by PCP.Check serum Mag level ,low mag can cause low k level Hypomagnesemia 659805721 E83.42 9931 Mag oxide added 400mg/day Essential hypertension 26571599 I10 52793 BP high today .cont Metopriolo l succinate to 25mg /day.PCP managing her bpWith SPB this high and low k level.Iord ered serum Suresh/renin level/TSH/ CORTISOL LEVEL and Renal artery doppler study. to r/o sec causes of hypertensi on ,these results ar not noted todayRenal us wnlIf bp remains high then rec adding Hydralazin e,aim to keep sbp below 140 mmhg . [id number] Miah Manuel MD [address] [address] 07/05/2025 10:17:49 07/06/2025 10:18:06 Overweight 152995877 E66.3 bmi=26.1 Crohn's disease 73811856 K50.90 meds and see GI, and she takes aciphex/pr otonix combo per his recommenda tion... colonoscop y ... Chronic ob structive pulmonary disease 26022352 J44.9 743929941 meds and follow up... smoked 2-3 ppd for 15 years, but stopped 2008... Hypertensive disorder 38 990988 I10 10805222 change meds and follow up... check out-pt and follow up... increase amlodipine from 5 mg to 10 mg.. Hypokalemia 13887188 E87 .6 9791 seeing renal... follow up with his rec... stop HCTZ.... Vitamin D deficiency 347 27012 E55.9 65605 Chest pain 96140803 R07. 9 61376763 referred.. . still has occasional left CP/chest tightness. . Health Concerns Section Related Observation LastModified by Organization Detai ls LastModified Time None Recorded Concern Status LastModified by Organization Details LastModified Time None Recorded Advance Directives Directive N: Payers Insurance Date Sequence Insurance Name Policy Number Policy Cardona Covered Member ID Cardona Member ID Guarantor Name 09/02/2023 1 [facility] - DOS ON OR AFTER 2020 - DUAL ELIGIBLE (MEDICARE REPLACEMENT/ADVANT AGE - HMO) Angélica L Case [id number] U25 Angélica Case 07/02/2025 2 [place] WHEN [place]ARE OR [place]IC[place] REPLACEMENT [place]IMARY) Angélica Case [id number] Angélica Case 09/02/[address] [facility] - DUAL ELIGIBLE - JAC (MEDICARE REPLACEMENT/ADVANT AGE) Angélica Case [id number] Angélica Case 09/02/2023 2 [place] Angélica Case [id number] Angélica Case 07/02/2025 [place] - [facility] - F[facility] Angélica L Case [id number] Angélica Case 09/02/2023 [place] [facility] Angélica L Case [id number] U25 Angélica Case 07/02/2025 [place] [facility] Angélica Case [id number] Angélica Case 07/02/2025 1 [place] Angélica L Case [id number] Angélica Case 11/04/2021 1 UNSPECIFIED GERTRUDIS T PAYOR Angélica Case 09/02/2023 1 [employer] (MEDICARE REPLACEMENT/ADVANT AGE - PPO) Angélica Case [id number] Angélica Case 09/02/2023 3 [place] Angélica L Case [id number] U25 Angélica Case 09/02/2023 2 [place] [facility] OF PUBLIC AID Angélica Case [id number] Angélica Case 09/02/2023 [place] [facility] Angélica Case [id number] Angélica Case 09/02/2023 2 [place] WHEN [place]ICARE OR MEDIC[place] REPLACEMENT PRIMARY) Angélica Case [id number] Angélica Case Notes Date Note Type Note Provider Name and Address Organization Details Recorded Time 02/16/2025 text/html ROS as noted in the HPI 54 yo here for f/u of renal consult sec to low egfr of 57 ml/min with serum creat of 1.0mg/dl. Pt has h/o Crohn's dz(known since 2008),she presented then with abd pain,pt reports having surgery (emergent ) with removal of acsending colon/portion of small intestine.She also reports has low vit D level.+H/O HTN.,controlled with medication.No h/o DM. PT TAKES HYDROCODONE FOR PAIN IN NECK AND BACK. Denies h/o kidney stones..Pt also reports having cysts in liver and kidneys. Pt seeing scalloper sec to abnl stress test. Pt also reports reports problem with vitamins deficiencies(B12/D ).Today comes after 6 months.no new complaints.pt recovering from poison LUANNE. Being treated with steroid. Julio Zheng MD Attn: Accounting, [address] [place], [address], [facility] 02/16/2025 11:29:32 03/05/2025 text/html ROS as noted in the HPI here for follow up... no smoking/drinking.. . has abdominal pain off/on... has had about 4 BP reading of SBP < 100 and was a little lightheaded... Miah Manuel MD Attn: Accounting, [address] [place], [address], [facility] 03/05/2025 11:15:59 05/05/2025 text/html ROS as noted in the HPI no smoking... ex- and she is upset... headed to [place]... he had strokes/lung cancer.. she is stressed/tearful.. . no S/H ideations... Miah Manuel MD Attn: Accounting, [address] [facility], [place], [address], [facility] 05/05/2025 12:23:00 05/18/2025 text/html ROS as noted in the HPI History of Present [id number] yo here for f/u sec to low egfr of 57 ml/min with serum creat of 1.0mg/dl in past.Pt has h/o Crohn's dz(known since 2008),she presented then with abd pain,pt reports having surgery (emergent ) with removal of ascending colon/portion of small intestine.She also reports h/o low vit D level.+H/O HTN.,controlled with medication.No h/o DM.PT TAKES HYDROCODONE FOR PAIN IN NECK AND BACK.Denies h/o kidney stones..Pt also reports having cysts in liver and kidneys.Pt seeing scalloper sec to abnl stress test.Pt also reports reports problem with vitamins deficiencies(B12/D ).Today comes after 3 months.no new complaints.Pt has been treated for poison LUANNE BEFORE LAST VISIT. . Trated with steroid. Julio Zheng MD Attn: Accounting, [address] [place], [address], [facility] 05/18/2025 11:43:10 07/05/2025 text/html ROS as noted in the HPI neck pain still is evident... low back pain also has been an issue as she was doing home repairs 1 week ago which required pipe work...... also sore on right sie where rbs were fractured... right shoulder pain also Miah Manuel MD Attn: Accounting[address] [place], [address], [facility] 07/05/2025 11:13:35 OBGyn Episode No OBEpisode recorded.
--- OUTSIDE RECORDS SUMMARY | 2025-07-23 15:55 | XMS_ITS | Clinical Summary ---
Author Organization [facility] Address [address] [place] [address] Care Team Providers Care Computational Linguist Name Role Phone Unavailable Primary Care Provider [...] of 2) 2018 COVID-19 Vaccine ( - 2024-2 6 season) 2025 Influenza Adult (#1) 2025 Hepatitis A Vaccines Aged Out No long er eligible based on patient's age to complete this topic Meningococcal B Vaccine Aged Out No l onger eligible based on patient's age to complete this topic Meningococcal Vaccine Aged Out No randall willem eligible based on patient's age to complete this topic RSV Immunizations Under 20 Months Aged Out No longer eligible based on patient's age to complete this topic
--- OUTSIDE RECORDS SUMMARY | 2025-07-23 15:55 | XMS_ITS | Encounter Summary ---
Author Organization [facility] Address 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
--- OUTSIDE RECORDS SUMMARY | 2025-07-23 15:55 | XMS_ITS | Clinical Summary ---
Author Organization [facility] Address [address] [place] [address] Care Team Providers Care Playground Worker Name Role Phone Miah Manuel Primary Care Provider [phone] Source Comments [facility],non-owned Affiliates and Associated Physician Practices is amultiple site organization consisting of ambulatory clinics and hospital sitesin [place], [place], [place] and [place]. This disclosure is being madepursuant to the Care Everywhere program and may not contain all information available regarding this patient. Last updated 18.[facility] Allergies Active Allergy Reactions Criticality Noted Date [...] Medium 02/08/2014 other [Other] Rash Medium 03/21/2017 [place] Penicillins 01/14/2012 Rash and breathing Rifampin Itching 01/15/2012 Sulfamethoxazole W-Trimethoprim 01/14/2012 Sulfamethoxazole W-Trimethoprim Other 11/30/2019 Medications * Be aware that medications may not be up to date on this document. Alwaysverify current medications with the patient. montelukast (SINGULAIR) 10 MG tablet Take 1 (one) tablet by mouth at bedtime Active albuterol HFA (PROVENTIL;VENTOLIN ;PROAIR) 108 (90 BASE) MCG/ACT inhaler Inhale 2 (two) puffs by mouth every 6 hours as needed Active albuterol (PROVENTIL;VENTOLIN ) (2.5 MG/3ML) 0.083% nebulizer solution Inhale by mouth 4 times daily as needed. As needed Active Cyrir-I-Skuarnicaum se (BEANO PO) Take by mouth once daily 2-4 daily Active Cyanocobalamin 3000 MCG Take 1 tablet by mouth every 7 days Twice weekly. SOMETIMES JUST ONCE WEEKLY Active Multiple Vitamins-Minerals (CENTRUM SILVER PO) Take 1 tablet by mouth once daily Active baclofen (LIORESAL) 10 MG tablet as needed Active levocetirizine (Xyzal) 5 MG tablet Take 1 (one) tablet by mouth once daily Active Elastic Bandages & Supports (ABDOMINAL BINDER/ELASTIC MED) MISCIndications:Abd ominal wall hernia Use 1 Units once daily Use abdominal binder as needed for hernia support. 1 Each 021 Active HYDROcodone-acetami nophen (NORCO) 7.5-325 MG tablet TAKE 1 TABLET BY MOUTH TWICE DAILY FOR 30 DAYS 021 Active metoprolol succinate XL 24hr (TOPROL XL) 25 MG tablet Take 1 (one) tablet by mouth once daily 021 Active Nebulizers (VIOS AEROSOL DELIVERY SYSTEM) MISC as directed 021 Active PREMARIN 0.625 MG/GM vaginal cream 021 Active triamcinolone acetonide (KENALOG IN ORABASE) 0.1 % paste Take by mouth once daily 5 g 2 022 Active fluticasone propionate (Flonase) 50 MCG/ACT nasal spray ADMINISTER 2 SPRAYS IN EACH NOSTRIL EVERY DAY 023 Active esomeprazole (NexIUM) 20 MG capsule Take 1 (one) capsule by mouth once daily Active Spiriva HandiHaler 18 MCG inhalation capsule Inhale 1 (one) capsule by mouth once daily 023 Active potassium chloride ER (K-TAB) 20 MEQ tablet Takes 2-3 times per day depending on the level. Weekly blood draw. 024 Active omeprazole EC (PriLOSEC OTC) 20 MG tablet Take 1 (one) tablet by mouth daily before breakfast Active ondansetron (Zofran) 4 MG tabletIndications:V itamin D deficiency,Crohn's disease of small intestine without complication (HCC),Vitamin B12 deficiency,Medicati on monitoring encounter,Other specified intestinal malabsorption (HCC),Intestinal malabsorption, unspecified type (HCC) Take 1 (one) tablet by mouth every 6 hours 30 tablet 5 024 Active metroNIDAZOLE, topical, (Metrocream) 0.75 % cream Apply to affected area on face BID. 30 day supply. 60 g 2 025 Active amLODIPine (Norvasc) 10 MG tablet Take 1 (one) tablet by mouth once daily 025 Active azaTHIOprine (Imuran) 50 MG tabletIndications:C rohn's disease with complication, unspecified gastrointestinal tract location (HCC) TAKE 1 AND 1/2 TABLETS BY MOUTH EVERY DAY 135 tablet 3 025 Active hydrochlorothiazide (HYDRODIURIL) 25 MG tablet Take 1 (one) tablet by mouth once daily 2024 Discontinued(L ist Clean-Up) Simethicone (PHAZYME PO)Indications:Croh n's disease of small intestine without complication (HCC),Vitamin D deficiency,Vitamin B12 deficiency,Medicati on monitoring encounter,Other specified intestinal malabsorption (HCC) Take 1 tablet by mouth once daily 2024 Discontinued(L ist Clean-Up) Calcium Carbonate-Vitamin D (CALTRATE 600+D PO) Take 1 tablet by mouth once daily 2024 Discontinued(L ist Clean-Up) cholestyramine (Questran) 4 g packetIndications:B ile salt-induced diarrhea (HCC) Take 1 (one) packet by mouth once daily 60 Each 024 2024 Discontinued(L ist Clean-Up) azaTHIOprine (Imuran) 50 MG tabletIndications:C rohn's disease with complication, unspecified gastrointestinal tract location (HCC) TAKE 1 AND 1/2 TABLETS BY MOUTH EVERY DAY 135 tablet 3 024 2024 Discontinued amLODIPine (Norvasc) 2.5 MG tablet Take 1 (one) tablet by mouth once daily 2024 Discontinued(L ist Clean-Up) Active Problems Problem Noted Date Diagnosed Date [...] Encounters Date Type Department Care Team Description 07/21/2025 Refill [facility] [address] [place] [phone] Vijaya Coombs MD Refill Request 07/15/2025 12:30 PM CDT Office Visit [facility] - GI [address] [place] [phone] Nazario Caldwell MD Crohn's disease of small intestine without complication (HCC) (Primary Dx); Chronic diarrhea 07/15/2025 Patient Outreach [facility] ENDOSCOPY [address] [place] [phone] Camelia Reyes RN 07/15/2025 Travel 07/02/2025 8:51 AM CDT - 07/02/2025 11:59 PM CDT Hospital Encounter [facility] MRI [address] [place] [address] Vijaya Coombs MD Discharge Disposition: Home or Self Care 07/02/2025 Travel from Last 3 Months Family History [...] AM CDT Legal Sex Female 6:03 AM LIBRARY TECHNICAL ASSISTANT Gender Identity Female 02/25/2022 9:03 AM CDT Sexual Orientation Not on file Travel History Travel Start Travel End [place] 06/15/2025 07/15/2025 Last Filed Vital Signs Vital Sign Reading Time Taken Comments Blood Pressure 148/89 07/15/2025 12:21 PM CDT Pulse 63 07/15/2025 12:21 PM CDT Temperature 36.4 C (97.6 F) 01/28/2025 10:12 AM CDT Respiratory Rate 13 07/22/2024 12:15 PM CDT Oxygen Saturation 100% 07/15/2025 12:21 PM CDT Inhaled Oxygen Concentration - - Weight 73 kg (161 lb) 07/15/2025 12:21 PM CDT Height 167.6 cm (5' 6) 01/28/2025 10:12 AM CDT Body Mass Index 25.99 01/28/2025 10:12 AM CDT Plan of Treatment Upcoming Encounters Date Type Department Care Team (Latest Contact Info) Description 10/13/2025 11:15 AM LIBRARY TECHNICAL ASSISTANT Hospital Encounter [facility] [address] [place] [address] Joie Smith MD [address] [facility] [address] [place] [phone] Surgery General 10/13/2025 11:15 AM LIBRARY TECHNICAL ASSISTANT - 10/13/2025 12:00 PM LIBRARY TECHNICAL ASSISTANT Surgery [facility] ENDOSCOPY [address] [place] [phone] Joie Smith MD [address] [place] [address] [address] [place] [phone] COLONOSCOPY SCREEN--w/ Sarah 11/04/2025 10:40 AM LIBRARY TECHNICAL ASSISTANT Office Visit [facility] - General Dermatology [address], [facility] [address] [place] [phone] Bethany Johnson, DO [address] [place] [phone] 01/13/2026 10:00 AM CDT Office Visit [facility] - GI [address] [facility], [place] [address] Scheduled Procedures Name Priority Associated Diagnoses Date/Ti me COLONOSCOPY SCREEN Crohn's disease of small intestine without complication (HCC) 10/13/2025 11:15 AM LIBRARY TECHNICAL ASSISTANT Health Maintenance Due Date Last Done Comments [...] DEPRESSION SCREENING 09/23/2024 INFLUENZA VACCINE (#1) 2025 SCREENING FOR DIABETES 06/29/2025 , 05/02/2021, 10/16/2019, Additional history exists MAMMOGRAM 08/29/2025 08/29/2023, 1203/2023, 06/21/2021 COLON MONITORING 07/22/2034 07/22/2024, , 07/11/2022, Additional [...] Procedure Name Priority Date/Time Associated Diagnosis Comments MRI ENTEROGRAPHY Routine 07/02/2025 11:3 5 AM CDT Crohn's disease of small intestine without complication (HCC) ENDOSCOPY, COLON, SCREENING Routine 07/22/2024 10:41 AM CDT HEPATITIS C ANTIBODY Routine 06/29/2022 12:58 PM CDT Crohn's disease of small intestine without complication HEMOGLOBIN A1C Routine 06/29/2022 11:57 AM CDT Neuropathy Myelopathy Imbalance from Last 3 Months or Most Recently Relevant to Health Maintenance Results * MRI Enterography (07/02/2025 11:35 AM CDT) Anatomical Region Laterality Modality Abdomen Magnetic Resonan ce, Magnetic Resonance 07/02/2025 11:4 3 AM CDT Impressions 07/02/2025 3:43 PM CDT Impression: 1.Postsurgical changes of an ileocecal resection with ileocolic anastomosis. No bowel wall thickening or abnormal enhancement is identified to suggest active inflammatory bowel disease. 2.Multiple fat-containing ventral hernias are again seen. 3.Hepatic steatosis. Report dictated by Jole Siddiqui DO (vice president of manufacturing). > Dictated by Joel Siddiqui DO 07/02/2025 11:43 AM > Dictated by Chief Credit Officer I, Aron Art MD have personally reviewed and interpreted this examination/study. > Interpreting Provider: Aron Art MD on 07/02/2025 3:43 PM Narrative 07/02/2025 3:43 PM CDT PROCEDURE: MRI ENTEROGRAPHY, DATE/TIME OF EXAM: 07/02/2025 11:36 AM, LOCATION [facility] INDICATION: K50.00: Crohn's disease of small intestine without complication (HCC) ADDITIONAL CLINICAL INFORMATION: Ordering Provider Reason For Exam: assess Crohn's disease activity Additional: 55-year-old female with past medical history including fistula arising ileocolonic, lateral, and perianal Crohn's disease status post ileocecal resection with ileocolonic anastomosis in 2008 COMPARISON: MRI enterography 01/16/2024 TECHNIQUE: MRI of the abdomen and pelvis was performed prior to and following the uneventful administration of 15 mL Multihance intravenous gadolinium contrast according to an enterography protocol. The patient drank 1350 mL of Citra Select prior to the study, and 1 mg of intramuscular glucagon was administered to distend the small bowel. Findings: Lower Chest: Normal. Gastrointestinal Small bowel distention: Satisfactory with intraluminal fluid to the level of the distal bowel. Obstruction: Nondilated without evidence of obstruction. Enhancement: No enhancing lesion of the bowel. Bowel wall: No bowel wall thickening or abnormal enhancement. Terminal ileum: Postsurgical changes of an ileocecal resection with ileocolic anastomosis. Other: No bowel fistula, stricture, or abscess. Hepatobiliary system Liver: Normal size with smooth surface contour. Cysts are seen within the liver measuring up to 2.1 cm in segment 4A, similar to prior exam. No arterially enhancing observations. Steatosis: There is mild diffuse hepatic steatosis. Spleen: At the upper limits of normal measuring 12.7 cm in craniocaudal dimension. Gallbladder and bile ducts Gallbladder: Hyperattenuating material within the bladder likely represents sludge. Otherwise, normal gallbladder. Bile ducts: Nondilated. Retroperitoneum Pancreas: Normal. Adrenals: Normal. Kidneys: Scattered renal cysts bilaterally. Mild right-sided hydroureteronephrosis. Lymph nodes: No lymphadenopathy. Peritoneum: No free intraperitoneal fluid. Pelvic structures: The bladder is distended with fluid and appears normal. Uterus is absent. Left ovarian cysts measuring up to 2.5 cm in diameter, similar to prior exam. No free pelvic fluid is identified. Other findings: Postsurgical changes of a midline laparotomy. Multiple fat-containing ventral hernias are again seen. Procedure Note Aron Art MD - 07/02/2025 PROCEDURE: MRI ENTEROGRAPHY, DATE/TIME OF EXAM: 07/02/2025 11:36 AM, LOCATION [facility] INDICATION: K50.00: Crohn's disease of small intestine without complication (HCC) ADDITIONAL CLINICAL INFORMATION: Ordering Provider Reason For Exam: assess Crohn's disease activity Additional: 55-year-old female with past medical history includingfistula arising ileocolonic, lateral, and perianal Crohn's disease status post ileocecal resection with ileocolonic anastomosis in 2008 COMPARISON: MRI enterography 01/16/2024 TECHNIQUE: MRI of the abdomen and pelvis was performed prior to and following the uneventful administration of 15 mL Multihance intravenous gadolinium contrast according to an enterography protocol. The patient drank 1350 mL of Citra Select prior to the study, and 1 mg ofintramuscular glucagon was administered to distend the small bowel. Findings: Lower Chest: Normal. Gastrointestinal Small bowel distention: Satisfactory with intraluminal fluid to thelevel of the distal bowel. Obstruction: Nondilated without evidence of obstruction. Enhancement: No enhancing lesion of the bowel. Bowel wall: No bowel wall thickening or abnormal enhancement. Terminal ileum: Postsurgical changes of an ileocecal resection with ileocolic anastomosis. Other: No bowel fistula, stricture, or abscess. Hepatobiliary system Liver: Normal size with smooth surface contour. Cysts are seen withinthe liver measuring up to 2.1 cm in segment 4A, similar to prior exam. No arterially enhancing observations. Steatosis: There is mild diffuse hepatic steatosis. Spleen: At the upper limits of normal measuring 12.7 cm in craniocaudal dimension. Gallbladder and bile ducts Gallbladder: Hyperattenuating material within the bladder likelyrepresents sludge. Otherwise, normal gallbladder. Bile ducts: Nondilated. Retroperitoneum Pancreas: Normal. Adrenals: Normal. Kidneys: Scattered renal cysts bilaterally. Mild right-sided hydroureteronephrosis. Lymph nodes: No lymphadenopathy. Peritoneum: No free intraperitoneal fluid. Pelvic structures: The bladder is distended with fluid and appears normal. Uterus isabsent. Left ovarian cysts measuring up to 2.5 cm in diameter, similar to prior exam. No free pelvic fluid is identified. Other findings: Postsurgical changes of a midline laparotomy. Multiple fat-containing ventral hernias are again seen. Impression: 1.Postsurgical changes of an ileocecal resection with ileocolic anastomosis. No bowel wall thickening or abnormal enhancement isidentified to suggest active inflammatory bowel disease. 2.Multiple fat-containing ventral hernias are again seen. 3.Hepatic steatosis. Report dictated by Joel Siddiqui DO (vice president of manufacturing). > Dictated by Joel Siddiqui DO 07/02/2025 11:43 AM > Dictated by Chief Credit Officer I, Aron Art MD have personally reviewed and interpreted this examination/study. > Interpreting Provider: Aron Art MD on 07/02/2025 3:43 PM Vijaya Coombs MD MR ORDERABLES Final Result * ENDOSCOPY, COLON, SCREENING (07/22/2024 10:41 AM CDT) Report Endoscopy POC Endoscopy Department Report _ Patient Name: Trinidad Case Procedure Date: 07/22/2024 10:41 AM Date of : 1970 Classification: Outpatient Gender: Female Ethnicity: Not or Race: White _ [facility]iders: [facility] Referring MD: Miah Manuel (Referring MD) Procedure: [...] entire procedure. Procedure Code(s): --- Professional --- 22370, Colonoscopy, flexible; with removal of tumor(s), polyp(s), or other lesion(s) by snare technique 18548, 59, Colonoscopy, flexible; with biopsy, single or multiple Diagnosis Code(s): --- Professional --- K52.3, Indeterminate colitis D12.6, Benign neoplasm of colon, unspecified D12.5, Benign neoplasm of sigmoid colon Z98.0, Intestinal bypass and anastomosis status CPT copyright 2021 [employer]. All rights reserved. The codes documented in this report are preliminary and upon professor of genetics review may be revised to meet current compliance requirements. Joie Smith MD ([place]) 07/22/2024 11:43:29 AM Note Initiated On: 07/22/2024 10:41 AM Number of Addenda: 0 [facility] [address] [place] [id number] [facility] 07/22/2024 10:4 1 AM CDT us Joie Smith MD GI PROCEDURE ORDERABLES E dited Result - Final Performing Organization Address City/[facility]/ZIP Co de Phone Number [facility] * HEPATITIS C ANTIBODY (06/29/2022 12:58 PM CDT) Hepatitis C Antibody Non-react cora Non-reac tive 06/29/2022 1:58 PM CDT [facility] Comment:Hepatitis C Antibody screen indicates no [...] ORDERABLES Fin al Result Performing Organization Address [facility] Co de Phone Number [facility] [address] [place] [address], [facility] [phone] * HEMOGLOBIN A1C (06/29/2022 11:57 AM CDT) Hemoglobin A1c 5.2 <=5.6 % 06/29/2022 2:06 PM CDT [facility] Estimated Average Glucose 103 mg/dL 06/29/2022 2:06 PM CDT [facility] Comment: HbA1c Interpretation: Normal : < 5.7% Pre-diabetes: 5.7-6.4% Diabetes: Equal to or greater than 6.5% Test results diagnostic of diabetes should be repeated for confirmation. Treatment target values recommended by ADA and other clinical organizations should be used to evaluate metabolic control in patients. Reference: [place] [employer], Standards of Care in Diabetes [...] MD LAB - CHEMISTRY ORDERABLES Final Result [facility] [address] [place] [address], [facility] [phone] from Last 3 Months or Most Recently Relevant to Health Maintenance Insurance MEDICARE MEDICAID - [place] MEDICARE MEDICAID - OUT OF STATE Care Teams Playground Worker Relationship Specialty Start Date End Date Miah Manuel [address] [place] [phone] PCP - General 04/11/18
[2025-07-23 16:01] VITALS: BP 183/110; PULSE 75; RESP 18; TEMP 36.6; O2SAT 100
--- NOTE | 2025-07-23 19:44 | ED.UPPEXIN ---
HPI - Extremity Injury (Upper) General Chief Complaint: Extremity Injury, Upper Stated Complaint: right arm pain Time Seen by Provider: 07/23/25 18:39 Source: patient Mode of arrival: ambulatory Limitations: no limitations History of Present Illness HPI narrative: Patient is a 55 y/o female who presents to the ED with c/o L arm pain. Patient reports she has had several injuries to her L arm recently. States she recently had MRI performed and had the IV placed in her L forearm, but notes they had a hard time finding a vein. She also reports 2 recent falls in which she tripped and attempted to catch herself with her left arm. Complains of pain to her left wrist, left forearm. Reports some bruising in the area. Has been taking her home [place] with some improvement. Denies numbness. Related Data Home Medications ?Medication ?Instructions ?Recorded ?Confirmed ?Last Taken ?Type azathioprine 50 mg tablet 50 mg PO DAILY 04/21/21 08/23/23 Unknown History budesonide 3 mg PO 04/21/21 Unknown History capsule,delayed,extended release metoprolol succinate 25 mg 25 mg PO DAILY 04/21/21 08/23/23 Unknown History tablet,extended release 24 hr montelukast 10 mg tablet mg 04/21/21 Unknown History potassium chloride 20 mEq meq PO 04/21/21 Unknown History tablet,extended release(part/cryst) (Klor-Con M) hydrocodone 7.5 mg-acetaminophen tablet 08/23/23 Unknown History 325 mg tablet amlodipine 2.5 mg tablet mg 02/10/25 Unknown History baclofen 10 mg tablet mg 02/10/25 Unknown History fluticasone propionate 50 intranasal 02/10/25 Unknown History mcg/actuation nasal spray,suspension metronidazole 0.75 % topical cream applic topical 02/10/25 Unknown History potassium chloride 20 mEq meq PO 02/10/25 Unknown History tablet,extended release Allergies Allergy/AdvReac Type Severity Reaction Status Date / Time sulfamethoxazole Allergy Severe THROAT Verified 07/23/25 16:05 SWELLING trimethoprim Allergy Severe THROAT Verified 07/23/25 16:05 SWELLING amoxicillin Allergy Intermediate SWELLING/RA Verified 07/23/25 16:05 SH cefadroxil Allergy Intermediate Rash Verified 07/23/25 16:05 latex Allergy Intermediate Other Verified 07/23/25 16:05 levofloxacin Allergy Intermediate FACIAL Verified 07/23/25 16:05 SWELLING lidocaine Allergy Intermediate THROAT Verified 07/23/25 16:05 SWELLING rifampin Allergy Intermediate Rash Verified 07/23/25 16:05 clarithromycin Allergy Mild SWELLING Verified 07/23/25 16:05 erythromycin base Allergy Mild SWELLING Verified 07/23/25 16:05 ofloxacin Allergy Mild RASH Verified 07/23/25 16:05 Penicillins Allergy Mild SWELLING Verified 07/23/25 16:05 adhesive Allergy Unknown Unknown Verified 07/23/25 16:05 morphine AdvReac Mild NAUSEA AND Verified 07/23/25 16:05 VOMITING POTASSIUM CLAVULANATE Allergy Intermediate SWELLING/RA Uncoded 02/10/25 16:23 SH dermabond Allergy Mild Rash Uncoded 02/10/25 16:23 Review of Systems Review of Systems: All systems reviewed & are unremarkable except as noted in HPI. All systems reviewed & are unremarkable except as noted in HPI and below PMFSH Past Medical History Medical History History of hypertension History of Crohn's disease Social History Social History Substance use: never Exam Narrative: GENERAL: Well appearing, well-nourished, non-toxic, in no acute distress. HEAD: Normocephalic, atraumatic. RESPIRATORY: Airway patent, respirations nonlabored. CARDIOVASCULAR: Regular rate and rhythm. Radial pulses strong and easily palpable MUSCULOSKELETAL: Moves all extremities. No gross deformities. Mild bony tenderness over left proximal ulnar region, distal wrist. Slight scattered bruising along ventral forearm with focal tenderness. Sensation intact. Good artist representative strength on left. Normal range of motion of fingers and elbow. SKIN: Warm, dry, normal color. NEURO: A&O X3. Speech clear. No ataxic movements. PSYCHIATRIC: Appropriate mood and affect. Normal interaction. Course Vital Signs Vital signs: Vital Signs Temperature 97.8 F 07/23/25 16:01 Pulse Rate 75 07/23/25 16:01 Respiratory Rate 18 07/23/25 16:01 Blood Pressure 183/110 H 07/23/25 16:01 Pulse Oximetry 100 07/23/25 16:01 Oxygen Delivery Room Air 07/23/25 16:01 Temperature 97.8 F 07/23/25 16:01 Pulse Rate 75 07/23/25 16:01 Respiratory Rate 18 07/23/25 16:01 Blood Pressure 183/110 H 07/23/25 16:01 Pulse Oximetry 100 07/23/25 16:01 Oxygen Delivery Room Air 07/23/25 16:01 MDM - Extremity Injury (Upper) MDM Narrative Medical decision making narrative: Patient?s injury is consistent with musculoskeletal etiology. No signs of neurologic or vascular compromise on physical examination. Compartments are soft without signs of compartment syndrome. XR of left wrist and forearm negative for fracture. Venous Doppler ultrasound was also obtained and negative for DVT or superficial thrombophlebitis. Pain is consistent with forearm strain. Patient is felt to be stable for discharge home and further outpatient management and treatment. Given Giovanni bandage. Discussed rice therapy. Discussed continued management. Given return precautions. Discharged in stable condition Medical Records Attestation: I reviewed the patient's medical records. Imaging Data Attestation: I personally reviewed and interpreted this imaging study as follows: Radiologist's impression: ITS Impressions Venous Doppler Study 07/23/25 19:11 IMPRESSION: 1. Patent left upper extremity veins. No evidence of venous thrombosis. Forearm X-Ray 07/23/25 19:48 IMPRESSION: No acute fracture or dislocation. Wrist X-Ray 07/23/25 19:48 IMPRESSION: No acute fracture or dislocation. Discharge Plan Discharge Clinical Impression: Strain of left forearm Qualifiers: Encounter type: initial encounter Qualified Code(s): S56.912A - Strain of unspecified muscles, fascia and tendons at forearm level, left arm, initial encounter Patient Disposition: Home Condition: Stable Instructions: Antibiotic Form, P.R.I.C.E. Treatment (ED), Arm Pain (ED) Additional Instructions: Your x-ray and ultrasound imaging here did not show any abnormalities. You likely have a muscle strain of your arm. Utilize Giovanni bandage for compression/support. Continue Tylenol/ibuprofen, your home [place] as needed for pain. Recommend frequent icing to arm. Follow-up with your primary care doctor for further evaluation. Return to the ED if you experience new fall or injury, severe pain or swelling, numbness, or any other symptoms of concern. Patient Language: Azerbaijani Prescriptions: No Action azathioprine 50 mg tablet 50 mg PO DAILY potassium chloride [Klor-Con M20] 20 mEq tablet,ER particles/crystals PO montelukast 10 mg tablet metoprolol succinate 25 mg tablet extended release 24 hr 25 mg PO DAILY budesonide 3 mg capsule,delayed,extend.release PO hydrocodone-acetaminophen 7.5-325 mg tablet amlodipine 2.5 mg tablet baclofen 10 mg tablet metronidazole 0.75 % cream TOPICAL fluticasone propionate 50 mcg/actuation spray,suspension INTRANASAL potassium chloride 20 mEq tablet extended release PO methylprednisolone [Medrol (Giacomo)] 4 mg tablets,dose pack See Rx Instructions .ROUTE .COMPLEX Qty: 21 0RF Rx Instructions: orally per package directions Follow-up/Referrals: Kaleb,Miah Waterman MD [Primary Care Provider, Unknown] Time of Disposition: 20:06
== END 2025-07-23 20:15 | disposition home or self-care (01) ==
PROVIDERS: Emergency Provider Physician Assistant; PCP Family Medicine
DX: S56.912A Strain of unspecified muscles, fascia and tendons at forearm level, left arm, initial encounter (principal); I10 Essential (primary) hypertension; K50.90 Crohn's disease, unspecified, without complications; Z79.899 Other long term (current) drug therapy; W01.0XXA Fall on same level from slipping, tripping and stumbling without subsequent striking against object, initial encounter
CPT/HCPCS: 73090; 73110; 93971; 99284